=== PATIENT | male | born 1935 | race Caucasian/White ===

== ENCOUNTER 2016-08-23 21:19 | Observation (INO) | payer OTHER ==
[2016-08-23 21:41] LABS: ANION GAP 15 mEq/L (8-16); CALCIUM 10.3 mg/dL (8.5-10.4); CARBON DIOXIDE 24 mEq/l (22-31); CHLORIDE 109 mEq/L (97-110); CREATININE 0.9 mg/dL (0.7-1.3); GLOMERULAR FILTRATION RATE > 60; POTASSIUM 3.5 mEq/L (3.5-5.2); SODIUM 148 mEq/L (134-144)
[2016-08-23 21:46] LABS: GLUCOSE 28 mg/dL (70-100)
[2016-08-23] MEDS ORDERED: D50W 25 GM/50 ML SYR IVP ONE ×2 (21:47→21:50)
--- NOTE | 2016-08-23 21:53 | EDPHY ---
H & P Smoking Status: Never smoked Time Seen by Provider: 08/23/16 21:38 HPI/ROS: CHIEF COMPLAINT: Altered mental status HISTORY OF PRESENT ILLNESS: 80-year-old male presents to the emergency department by ambulance with altered mental status. The patient is a known type 1 insulin-dependent diabetic. He was at a [employer] party this evening and he admits to drinking alcohol. He states I am drunk. No reported trauma or injury. His states that he manages his blood sugars on his own. She states 1 week ago on 2 occasions he had hypoglycemia and she had to give him some oral sugar for his altered mental status. She states that this presentation tonight is very similar and she tried giving him a Brownie at the alliance party however he continued to act altered and presented to the emergency department by ambulance. The patient has had no precipitating illness. No vomiting. No chest pain or difficulty breathing. No headache. No abdominal pain. No neck or back pain. Denies any other substance abuse. REVIEW OF SYSTEMS: Constitutional: No fever, no chills. Eyes: No double or blurry vision. ENT: No sore throat. Respiratory: No cough, no shortness of breath. Cardiac: No chest pain. Gastrointestinal: No abdominal pain, vomiting or diarrhea. Genitourinary: No dysuria. Musculoskeletal: No neck or back pain. Skin: No rashes. Neurological: No headache. (Casie Breen) Past Medical/Surgical History: Type 1 diabetic on insulin, Hypertension, dyslipidemia (Casie Breen) Social History: . (Casie Breen) Physical Exam: General Appearance: Alert. No apparent distress. No signs of trauma to his head. He does not smell of alcohol. Initially the patient was very slow to answer questions. Eyes: Pupils equal and round. Extraocular motions are all intact. ENT: Mouth: Mucous membranes very dry. Respiratory: No wheezing, rhonchi, or rales, lungs are clear to auscultation. Cardiovascular: Regular rate and rhythm. Gastrointestinal: Abdomen is soft and nontender, no masses, no rebound or guarding, bowel sounds normal. Neurological: Alert and oriented x 3, cranial nerves II through XII grossly intact Skin: Warm and dry, no rashes. Musculoskeletal: Nontender to palpate along the cervical, thoracic or lumbar spine. Neck is supple. Extremities: Full range of motion and no peripheral edema. Psychiatric: Patient is oriented X 3, there is no agitation. (Casie Breen) Constitutional: Initial Vital Signs Temperature (C) 36.9 C 08/23/16 21:28 Heart Rate 80 08/23/16 21:28 Respiratory Rate 14 08/23/16 21:28 Blood Pressure 199/86 H 08/23/16 21:28 O2 Sat (%) 96 08/23/16 21:28 O2 Delivery Mode Room Air Allergies/Adverse Reactions: No Known Allergies Allergy (Unverified 08/23/16 21:28) Home Medications: Medication Instructions Recorded Aspirin EC [Aspirin EC 81 mg (*)] 81 mg PO DAILY 12/22/15 Atenolol [Tenormin 25 mg (*)] 25 mg PO DAILY 12/22/15 Herbals/Supplements -Info Only 1 ea PO DAILY 12/22/15 Insulin Lispro [humALOG LISPRO 100 7 - 15 units SC BIDAC 12/22/15 units/ml (*)] Insulin NPH Human [humULIN N 100 20 - 30 units SC BIDPC 12/22/15 UNITS/ML (*)] Lisinopril [Zestril 40 mg (*)] 40 mg PO DAILY 12/22/15 Simvastatin [Zocor] 20 mg PO DAILY 12/22/15 amLODIPine BESYLATE [Norvasc 5 mg 5 mg PO DAILY 12/22/15 (*)] metFORMIN HCL [Glucophage 500 mg 500 mg PO DAILY 12/22/15 (*)] Multivitamins [Multivitamin (*)] 1 each PO DAILY 12/23/15 amLODIPine BESYLATE [Norvasc 5 mg 5 mg PO DAILY #0 tab 12/24/15 (*)] Medical Decision Making - Diagnostics Imaging: CT brain reveals nothing acute. This was reported to me by Dr. Diego White at 10:42 p.m.. (Casie Breen) ED Course/Re-evaluation: The patient was evaluated and managed by the physician's operating room assistant. I evaluated him at 2154. The patient's condition improved substantially since initial evaluation. Physical exam results are as follows: GENERAL: Well-appearing, in no acute distress, alert but confused. HEENT: Eyes normal to inspection, normal pharynx, no signs of dehydration. NECK: No thyromegaly, no lymphadenopathy, supple. RESPIRATORY: Clear to auscultation bilaterally, no rales, rhonchi or wheezing. CVS: Regular rate and rhythm, no rubs, murmurs, or gallops. ABDOMEN: Soft, nontender, nondistended, no organomegaly. BACK: Normal to inspection, no CVA tenderness. SKIN: Normal color, no rash, warm, dry. No pallor. EXTREMITIES: No pedal edema, no calf tenderness, no Homans sign or cords, no joint swelling. NEURO/PSYCH: Alert, confused, oriented x3, normal motor sensory exam. No obvious cranial nerve deficit. Normal heel to maradiaga bilaterally. Normal finger to nose test. My cosignature indicates that I reviewed the chart and I agree with the findings and plan of care as documented. I am the secondary supervising physician. (Judy Ji) 80-year-old male presents to the emergency department with altered mental status. Patient has a history type 1 diabetes. He manages his blood sugar on his own. He states the last gave himself insulin earlier this morning. He was at a [employer] party this evening and drink alcohol. His noted that he started being confused and she thought that his blood sugar was low. She tried giving him a Brownie and since he did not come around, she called EMS for transport to the hospital. The patient was found to have critically low blood sugar of 28. He was given juice and a quarter amp of D50. He instantly became more conversational and was feeling much better. CT imaging of the brain was within normal limits. No change from December 22, 2015. Repeat blood sugar was 79. The rest is chemistries are within normal limits. Troponin was negative. Chest x-ray and urine revealed no signs of infection. The patient tells me that they recently changed the timing of when he gets himself Lantus. He states that his blood sugar typically was very low at night time. He has been sitting his alarm in the middle of the night and will get up to check his blood sugar. He was taking Lantus at night and now takes 50 units of Lantus in the morning and 20 units of regular insulin in the morning. He then takes only regular insulin 20 units at bedtime. The patient was also seen and examined by Dr. Judy Ji. I recommended admission to the hospital for observation stay. I explained to the patient that it is not clear why his blood sugar became low. He states that his last use of insulin was earlier this morning. I recommended observation stay overnight. The patient will be admitted to Dr. Soto. (Ciara Breenrina Christophe) Differential Diagnosis: Altered mental status including but not limited to hypoglycemia, infectious process, electrolyte abnormality, head injury and intoxicants. (NuhaCasie Christophe) - Data Points Laboratory Results: Laboratory Results 08/23/16 22:00 08/23/16 21:55 08/23/16 08/23/16 08/23/16 22:30 22:00 21:55 WBC 9.37 10^3/uL (3.80-9.50) RBC 5.21 10^6/uL (4.40-6.38) Hgb 16.2 g/dL (13.7-17.5) Hct 47.4 % (40.0-51.0) MCV 91.0 fL (81.5-99.8) MCH 31.1 pg (27.9-34.1) MCHC 34.2 g/dL (32.4-36.7) RDW 13.6 % (11.5-15.2) Plt Count 240 10^3/uL (150-400) MPV 10.1 fL (8.7-11.7) Neut % (Auto) 71.0 % (39.3-74.2) Lymph % (Auto) 19.1 % (15.0-45.0) [place] % (Auto) 7.5 % (4.5-13.0) Eos % (Auto) 1.5 % (0.6-7.6) Baso % (Auto) 0.6 % (0.3-1.7) Nucleat RBC Rel Count 0.0 % (0.0-0.2) Absolute Neuts (auto) 6.65 H 10^3/uL (1.70-6.50) Absolute Lymphs (auto) 1.79 10^3/uL (1.00-3.00) Absolute Monos (auto) 0.70 10^3/uL (0.30-0.80) Absolute Eos (auto) 0.14 10^3/uL (0.03-0.40) Absolute Basos (auto) 0.06 10^3/uL (0.02-0.10) Absolute Nucleated RBC 0.00 10^3/uL (0-0.01) Immature Gran % 0.3 % (0.0-1.1) Immature Gran # 0.03 10^3/uL (0.00-0.10) Turbidity Sodium 146 H mEq/L (134-144) Potassium 3.7 mEq/L (3.5-5.2) Chloride 109 mEq/L (97-110) Carbon Dioxide 22 mEq/l (22-31) Anion Gap 15 mEq/L (8-16) BUN 15 mg/dL (7-23) Creatinine 0.9 mg/dL (0.7-1.3) Estimated GFR > 60 Glucose 79 D mg/dL (70-100) Calcium 10.0 mg/dL (8.5-10.4) Troponin I Specimen Hemolysis Urine Color YELLOW Urine Appearance CLEAR Urine pH 6.0 (5.0-7.5) Ur Specific [place] 1.016 (1.002-1.030) Urine Protein 2+ H (NEGATIVE) Urine Ketones NEGATIVE (NEGATIVE) Urine Blood NEGATIVE (NEGATIVE) Urine Nitrate NEGATIVE (NEGATIVE) Urine Bilirubin NEGATIVE (NEGATIVE) Urine Urobilinogen NEGATIVE EU (0.2-1.0) Ur Leukocyte Esterase NEGATIVE (NEGATIVE) Urine RBC 1-3 /hpf (0-3) Urine WBC 1-3 /hpf (0-3) Ur Epithelial Cells NONE SEEN /lpf (NONE-1+) Urine Glucose NEGATIVE (NEGATIVE) 08/23/16 08/23/16 21:54 21:30 WBC RBC Hgb Hct MCV MCH MCHC RDW Plt Count MPV Neut % (Auto) Lymph % (Auto) [place] % (Auto) Eos % (Auto) Baso % (Auto) Nucleat RBC Rel Count Absolute Neuts (auto) Absolute Lymphs (auto) Absolute Monos (auto) Absolute Eos (auto) Absolute Basos (auto) Absolute Nucleated RBC Immature Gran % Immature Gran # Turbidity Cancelled Sodium Cancelled 148 H mEq/L (134-144) Potassium Cancelled 3.5 mEq/L (3.5-5.2) Chloride Cancelled 109 mEq/L (97-110) Carbon Dioxide Cancelled 24 mEq/l (22-31) Anion Gap Cancelled 15 mEq/L (8-16) BUN Cancelled 16 mg/dL (7-23) Creatinine Cancelled 0.9 mg/dL (0.7-1.3) Estimated GFR Cancelled > 60 Glucose Cancelled 28 L* mg/dL (70-100) Calcium Cancelled 10.3 mg/dL (8.5-10.4) Troponin I 0.024 ng/mL (0-0.034) Specimen Hemolysis Cancelled Urine Color Urine Appearance Urine pH Ur Specific [place] Urine Protein Urine Ketones Urine Blood Urine Nitrate Urine Bilirubin Urine Urobilinogen Ur Leukocyte Esterase Urine RBC Urine WBC Ur Epithelial Cells Urine Glucose Departure - Departure Disposition: [facility] Inpatient Acute Clinical Impression: Hypoglycemia Condition: Good Referrals: IN STATE,. [Primary Care Provider] - As per Instructions
[2016-08-23 22:08] LABS: % IMMATURE GRANULYOCYTES 0.3 % (0.0-1.1); ABSOLUTE IMMATURE GRANULOCYTES 0.03 10^3/uL (0.00-0.10); ADD DIFF? NO; ADD MORPH? NO; ADD SCAN? NO; ATYPICAL LYMPHOCYTE FLAG 0 (0-99); FRAGMENT RBC FLAG 0 (0-99); HEMATOCRIT 47.4 % (40.0-51.0); HEMOGLOBIN 16.2 g/dL (13.7-17.5); LEFT SHIFT FLG 0 (0-99); LIPEMIA HEMOLYSIS FLAG 90 (0-99); MEAN CELL HEMOGLOBIN 31.1 pg (27.9-34.1); MEAN CELL HEMOGLOBIN CONCENTR. 34.2 g/dL (32.4-36.7); MEAN PLATELET VOLUME 10.1 fL (8.7-11.7); PLATELET CLUMPS FLAG 10 (0-99); PLATELET COUNT 240 10^3/uL (150-400); RED BLOOD CELL COUNT 5.21 10^6/uL (4.40-6.38); RED CELL DISTRIBUTION WIDTH 13.6 % (11.5-15.2)
[2016-08-23 22:22] LABS: ANION GAP 15 mEq/L (8-16); CARBON DIOXIDE 22 mEq/l (22-31); CHLORIDE 109 mEq/L (97-110); CREATININE 0.9 mg/dL (0.7-1.3); GLOMERULAR FILTRATION RATE > 60; GLUCOSE 79 mg/dL (70-100); POTASSIUM 3.7 mEq/L (3.5-5.2); SODIUM 146 mEq/L (134-144)
--- NOTE | 2016-08-23 22:23 | DX ---
Portable AP Upright Chest, at 9:43 p.m. Clinical History: 80-year-old male who is inebriated. Comparison Study: Chest, dated December 22, 2015. Findings: Telemetry monitoring lead lines are present. The cardiac silhouette is borderline-enlarged, however is stable. The pulmonary vasculature is equalized. There is no focal infiltrate, pleural eff usion, peripheral interstitial edema, or pneumothorax. The osseous structures are notable for some barbara ne demineralization with some thoracic degenerative changes and a mild kyphosis. Impression: No acute abnormality, or substantial change from December 22, 2015.
--- NOTE | 2016-08-23 22:39 | CPEKG ---
Heart Rate: 71 RR Interval: 845 P-R Interval: 228 QRSD Interval: 102 QT Interval: 404 QTC Interval: 439 P Joanna: 53 QRS Joanna: -29 T Wave Joanna: 37 EKG Severity - ABNORMAL ECG - EKG Impression: SINUS ARRHYTHMIA, RATE 65-80 EKG Impression: VENTRICULAR PREMATURE COMPLEX EKG Impression: FIRST DEGREE AV BLOCK EKG Impression: BORDERLINE LEFT AXIS DEVIATION Electronically Signed By: Francis Love 24-Aug-2016 07:26:41
[2016-08-23 22:40] LABS: COLOR YELLOW; LEUKOCYTE ESTERASE,URINE NEGATIVE (NEGATIVE); NITRITE,URINE NEGATIVE (NEGATIVE)
--- NOTE | 2016-08-23 22:44 | CT ---
CT Scan of the Head (Without Contrast) Clinical Indications: 80-year-old male who is inebriated, although also has a history of type 1 insul in-dependent diabetes and has had altered mental status secondary to hypoglycemia twice over the past week. The patient denies any recent head trauma. Technique: Axial CT images were acquired from the foramen magnum through the skull vertex, without i ntravenous contrast. Soft tissue, subdural, and bone windows were reviewed on the computer workstati on. Images were reformatted at 5.00 and 1.50 mm increments, and are reformatted in sagittal and juvenal nal planes. DFOV is 27.5 cm. Dose reduction techniques were utilized. Comparison Studies: Unenhanced CT and MR imaging of the brain, dated December 22, 2015. Findings: There are no new mass lesions identified, and there is no evidence of an acute or subacute intracranial hemorrhage, or an acute infarct. The ventricles and subarachnoid spaces remain prominen t, with some cortical sulcal widening, consistent with age-related cerebral cortical atrophy. There i s periventricular diminished attenuation, consistent with chronic microvascular ischemic gliosis. Th e bone windows reveal no sign of a fracture. There is atherosclerotic calcification of the cavernous carotid arteries and of the vertebral arteries. The craniocervical junction, sella turcica, pineal g land, and the orbits are unremarkable. The visualized paranasal sinuses and mastoid air cells are eric e of fluid. If there is continuing clinical concern regarding the patient's symptoms, MR imaging coul d be considered, if otherwise not contraindicated. Impression: Senescent features, with no acute intracranial abnormality, or substantial change from A pril 2016. Results were conveyed to Casie Breen PA-C. A test result has been communicated to a licensed care provider and documented in [facility], 10:39:48 P M, 08/23/2016, [employer] Message ID [id number].
[2016-08-24] MEDS ORDERED: ONDANSETRON 4 MG/2 ML VIAL IVP PRN (00:14)
[2016-08-24] MEDS ORDERED: ACETAMINOPHEN 325 MG TAB PO PRN (00:14)
[2016-08-24] MEDS ORDERED: ONDANSETRON DISINTEGRATING 4 MG TAB PO PRN (00:14)
[2016-08-24] MEDS ORDERED: D50W 25 GM/50 ML SYR IVP PRN (00:17)
--- NOTE | 2016-08-24 00:51 | PDGENHP ---
History and Physical - Chief Complaint altered mental status - History of Present Illness Patient is a 80-year-old male with type 1 diabetes mellitus, hypertension and hyperlipidemia who presents to the ED with altered mental status. Patient was at a [employer] green party with his when she noticed he began acting strangely, in a manner similar to when he becomes hypoglycemic. She gave him a brownie to eat, however, his MS did not immediately improve, so she called EMS. Upon EMS arrival , pt's glucose was noted to be >150 (per ED report) and he was transported to the ED for further management. Per patient, he has been having episodes of hypoglycemia recently, over the past 1-2 weeks. To address this, pt's PMD told him to switch his lantus dosing from qHS to qAM, which he did about 3 days ago. His current prescribed insulin regimen is: Lantus 50 u qAM and Regular Insulin 20 units BID (AC breakfast/ dinner). On the day of presentation, pt reports taking his AM Lantus dose and regular insulin. At about 5 pm he then took Regular Insulin 25 units and he thinks he might have again injected another dose of lantus 50 units out of habit. He then went to the [employer] green party where he was drinking alcohol (champagne) and eating a lot of high protein, low carb foods (shrimp, etc). 2-3 hours into this green party he began feeling unwell and does not quite remember what exactly happened with EMS. He states he usually "blacks out" when his blood glucose is < 30 and no longer feels any warning symptoms of hypoglycemia (sweating, tremor) . Upon arrival to the ED, pt was afebrile, hypertensive and his FS was noted to be 29 on PoC testing. He was given an amp of D50, as well as 2 cups of juice and peanut butter. Repeat glu was 79 and patient had returned back to his baseline mental status. CT head, CXR and EKG were all unremarkable. He was then admitted to the hospitalist service for further management. Of note, on my evaluation pt had asymmetric R LE swelling, which he reported as new and he noticed it when he had difficulty getting his ski boot on his R foot. He does report a recent car trip > 5 hrs about 1 week ago. He denies any cp, palpitations, shortness of breath or pleuritis. History Information - Allergies/Home Medication List Allergies/Adverse Reactions: No Known Allergies Allergy (Unverified 08/23/16 21:28) Home Medications: Aspirin EC [Aspirin EC 81 mg (*)] 81 mg PO DAILY 12/22/15 [Last Taken Unknown] Atenolol [Tenormin 25 mg (*)] 25 mg PO DAILY 12/22/15 [Last Taken 12/21/15] Herbals/Supplements -Info Only 1 ea PO DAILY 12/22/15 [Last Taken Unknown] Insulin Lispro [humALOG LISPRO 100 units/ml (*)] 7 - 15 units SC BIDAC 12/22/15 [Last Taken Unknown] Insulin NPH Human [humULIN N 100 UNITS/ML (*)] 20 - 30 units SC BIDPC 12/22/15 [ Last Taken Unknown] Lisinopril [Zestril 40 mg (*)] 40 mg PO DAILY 12/22/15 [Last Taken 12/21/15] Simvastatin [Zocor] 20 mg PO DAILY 12/22/15 [Last Taken 12/21/15] amLODIPine BESYLATE [Norvasc 5 mg (*)] 5 mg PO DAILY 12/22/15 [Last Taken ] metFORMIN HCL [Glucophage 500 mg (*)] 500 mg PO DAILY 12/22/15 [Last Taken 12/20] Multivitamins [Multivitamin (*)] 1 each PO DAILY 12/23/15 [Last Taken 12/23/15] I have personally reviewed and updated: family history, medical history, social history, surgical history - Past Medical History Additional medical history: DM type 1, on insulin since young adulthood. Hypertension. Hyperlipidemia - Surgical History Additional surgical history: tonsillectomy. 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 Lives with his , is independent in all ADLs. Review of Systems ROS: 10pt was reviewed & negative except for what was stated in HPI & below Physical Exam Temp Pulse Resp BP Pulse Ox 36.9 C 78 16 129/55 H 95 08/23/16 21:28 08/24/16 00:00 08/24/16 00:00 08/24/16 00:00 08/24/16 00:00 Constitutional: no apparent distress, appears nourished, not in pain Eyes: PERRL, anicteric sclera, EOMI Ears, Nose, Mouth, Throat: moist mucous membranes, hearing normal, ears appear normal, no oral mucosal ulcers Cardiovascular: regular rate and rhythym, no murmur, rub, or gallop, pulses symmetric bilaterally, edema (RLE pitting edema, 1-2+), No JVD Peripheral Pulses: 2+: dorsalis-pedis (R), dorsalis-pedis (L) Respiratory: no respiratory distress, no rales or rhonchi, clear to auscultation Gastrointestinal: normoactive bowel sounds, soft, non-tender abdomen, no palpable masses Genitourinary: no bladder fullness, no bladder tenderness Skin: warm, normal color, no rashes or abrasions, no fluctuance, No mottled Musculoskeletal: full muscle strength, no muscle tenderness, normal joint ROM, no joint effusions Neurologic: AAOx3, sensation intact bilaterally, CN II-XII Intact, No weakness, No numbness Psychiatric: interacting appropriately, not anxious, not encephalopathic, thought process linear Lab Data & Imaging Review 08/23/16 22:00 08/23/16 21:55 WBC 9.37 10^3/uL (3.80-9.50) 08/23/16 22:00 RBC 5.21 10^6/uL (4.40-6.38) 08/23/16 22:00 Hgb 16.2 g/dL (13.7-17.5) 08/23/16 22:00 POC Hgb 15.0 gm/dL (14.5-17.3) 08/23/16 23:43 Hct 47.4 % (40.0-51.0) 08/23/16 22:00 POC Hct 44 % (42.8-50.6) 08/23/16 23:43 MCV 91.0 fL (81.5-99.8) 08/23/16 22:00 MCH 31.1 pg (27.9-34.1) 08/23/16 22:00 MCHC 34.2 g/dL (32.4-36.7) 08/23/16 22:00 RDW 13.6 % (11.5-15.2) 08/23/16 22:00 Plt Count 240 10^3/uL (150-400) 08/23/16 22:00 MPV 10.1 fL (8.7-11.7) 08/23/16 22:00 Neut % (Auto) 71.0 % (39.3-74.2) 08/23/16 22:00 Lymph % (Auto) 19.1 % (15.0-45.0) 08/23/16 22:00 [place] % (Auto) 7.5 % (4.5-13.0) 08/23/16 22:00 Eos % (Auto) 1.5 % (0.6-7.6) 08/23/16 22:00 Baso % (Auto) 0.6 % (0.3-1.7) 08/23/16 22:00 Nucleat RBC Rel Count 0.0 % (0.0-0.2) 08/23/16 22:00 Absolute Neuts (auto) 6.65 10^3/uL (1.70-6.50) H 08/23/16 22:00 Absolute Lymphs (auto) 1.79 10^3/uL (1.00-3.00) 08/23/16 22:00 Absolute Monos (auto) 0.70 10^3/uL (0.30-0.80) 08/23/16 22:00 Absolute Eos (auto) 0.14 10^3/uL (0.03-0.40) 08/23/16 22:00 Absolute Basos (auto) 0.06 10^3/uL (0.02-0.10) 08/23/16 22:00 Absolute Nucleated RBC 0.00 10^3/uL (0-0.01) 08/23/16 22:00 Immature Gran % 0.3 % (0.0-1.1) 08/23/16 22:00 Immature Gran # 0.03 10^3/uL (0.00-0.10) 08/23/16 22:00 Turbidity Cancelled 08/23/16 21:54 POC Sodium 146 mEq/L (134-144) H 08/23/16 23:43 Sodium 146 mEq/L (134-144) H 08/23/16 21:55 POC Potassium 3.9 mEq/L (3.3-5.0) 08/23/16 23:43 Potassium 3.7 mEq/L (3.5-5.2) 08/23/16 21:55 POC Chloride 107 mEq/L (96-108) 08/23/16 23:43 Chloride 109 mEq/L (97-110) 08/23/16 21:55 Carbon Dioxide 22 mEq/l (22-31) 08/23/16 21:55 Anion Gap 15 mEq/L (8-16) 08/23/16 21:55 POC BUN 15 mg/dL (7-23) 08/23/16 23:43 BUN 15 mg/dL (7-23) 08/23/16 21:55 Creatinine 0.9 mg/dL (0.7-1.3) 08/23/16 21:55 POC Creatinine 0.8 mg/dL (0.8-1.5) 08/23/16 23:43 Estimated GFR > 60 08/23/16 21:55 Glucose 79 mg/dL (70-100) D 08/23/16 21:55 POC Glucose 82 mg/dL (70-100) 08/23/16 23:43 Calcium 10.0 mg/dL (8.5-10.4) 08/23/16 21:55 Troponin I 0.024 ng/mL (0-0.034) 08/23/16 21:54 Specimen Hemolysis Cancelled 08/23/16 21:54 Urine Color YELLOW 08/23/16 22:30 Urine Appearance CLEAR 08/23/16 22:30 Urine pH 6.0 (5.0-7.5) 08/23/16 22:30 Ur Specific [place] 1.016 (1.002-1.030) 08/23/16 22:30 Urine Protein 2+ (NEGATIVE) H 08/23/16 22:30 Urine Ketones NEGATIVE (NEGATIVE) 08/23/16 22:30 Urine Blood NEGATIVE (NEGATIVE) 08/23/16 22:30 Urine Nitrate NEGATIVE (NEGATIVE) 08/23/16 22:30 Urine Bilirubin NEGATIVE (NEGATIVE) 08/23/16 22:30 Urine Urobilinogen NEGATIVE EU (0.2-1.0) 08/23/16 22:30 Ur Leukocyte Esterase NEGATIVE (NEGATIVE) 08/23/16 22:30 Urine RBC 1-3 /hpf (0-3) 08/23/16 22:30 Urine WBC 1-3 /hpf (0-3) 08/23/16 22:30 Ur Epithelial Cells NONE SEEN /lpf (NONE-1+) 08/23/16 22:30 Urine Glucose NEGATIVE (NEGATIVE) 08/23/16 22:30 Visualized and Interpreted Chest x-ray results: Yes Chest X-Ray results: no infiltrate, normal Visualized and Interpreted imaging results: Yes Interpretation: CT head: no acute intracranial infarct, hemorrhage, edema Visualized and Interpreted EKG results: Yes EKG additional interpertation: NSR with 1st degree AVblock; no ST/T wave changes ; PVC Assessment & Plan Assessment: Pt is 80/M with DM1 on insulin, HTN, HLD who presented to the ED with altered mental status, found to be severely hypoglycemic. On history, patient reports taking more than his prescribed dose of regular insulin and also possibly a second dose of Lantus in 24hrs. Plan: # acute encephalopathy Likely related to hypoglycemia, as MS returned to baseline with normalization of BG. Pt also without any focal deficits, CT head unremarkable and no other significant metabolic abnormalities present. # hypoglycemia Pt reports taking regular insulin 25 u and possibly accidentally also injecting Lantus 50 units at about 5 pm on 08/23. Half life of R insulin is about 2-4hrs, and hypoglycemia has persisted longer than that, so long acting insulin was also likely injected. Given this, pt will require close FS monitoring over 12- 18 hour period. Most recent FS 147, so no indication for starting D5/D10 at this time. - monitor FS q1-2h for next 6 hrs - if levels again fall below 100, start D5 - hold all insulin overnight # RLE swelling Pt with new LE swelling, R>L and reports recent long car trip to [place]. Will check LE doppler to r/o DVT. # chronic HTN BP elevated on presentation, has improved without intervention. Will confirm and restart home meds. # HLD Cont home med. # dispo: observe in SDU overnight given need for frequent glucose checks, however, anticipate hypoglycemia will resolve within 24 hrs # Gen: diabetic diet DVT ppx: lovenox Full code
[2016-08-24 01:29] VITALS: TEMP 98.6
[2016-08-24 04:37] LABS: % IMMATURE GRANULYOCYTES 0.4 % (0.0-1.1); ABSOLUTE IMMATURE GRANULOCYTES 0.03 10^3/uL (0.00-0.10); ADD DIFF? NO; ADD MORPH? NO; ADD SCAN? NO; ATYPICAL LYMPHOCYTE FLAG 0 (0-99); FRAGMENT RBC FLAG 0 (0-99); HEMATOCRIT 38.9 % (40.0-51.0); HEMOGLOBIN 13.4 g/dL (13.7-17.5); LEFT SHIFT FLG 0 (0-99); LIPEMIA HEMOLYSIS FLAG 90 (0-99); MEAN CELL HEMOGLOBIN 31.7 pg (27.9-34.1); MEAN CELL HEMOGLOBIN CONCENTR. 34.4 g/dL (32.4-36.7); MEAN PLATELET VOLUME 10.3 fL (8.7-11.7); PLATELET CLUMPS FLAG 10 (0-99); PLATELET COUNT 195 10^3/uL (150-400); RED BLOOD CELL COUNT 4.23 10^6/uL (4.40-6.38); RED CELL DISTRIBUTION WIDTH 13.9 % (11.5-15.2)
[2016-08-24 04:45] LABS: ALANINE AMINOTRANSFERASE 36 IU/L (21-72); ALBUMIN 2.8 g/dL (3.5-5.0); ALKALINE PHOSPHATASE 94 IU/L (38-126); ANION GAP 7 mEq/L (8-16); ASPARTATE AMINOTRANSFERASE 27 IU/L (17-59); BILIRUBIN,TOTAL 0.4 mg/dL (0.1-1.4); CALCIUM 8.9 mg/dL (8.5-10.4); CARBON DIOXIDE 25 mEq/l (22-31); CHLORIDE 107 mEq/L (97-110); CREATININE 0.8 mg/dL (0.7-1.3); GLOMERULAR FILTRATION RATE > 60; GLUCOSE 244 mg/dL (70-100); POTASSIUM 4.7 mEq/L (3.5-5.2); SODIUM 139 mEq/L (134-144)
[2016-08-24 04:57] LABS: TROPONIN I 0.024 ng/mL (0-0.034)
--- NOTE | 2016-08-24 08:16 | SOAPPROG ---
[id number]: DC today. See DC summary Objective: Vital Signs Temp Pulse Resp BP Pulse Ox 37.0 C 65 18 140/60 H 98 08/24/16 01:29 08/24/16 06:00 08/24/16 06:00 08/24/16 06:00 08/24/16 06:00 Laboratory Results 08/24/16 04:32 08/24/16 04:32 08/23/16 08/24/16 08/25/16 05:59 05:59 05:59 Intake Total 400 Balance 400 ICD10 Worksheet Patient Problems: Problems Problem Status Diagnosed CVA (cerebral vascular accident) Acute Expressive aphasia Acute Hypoglycemia Acute
--- NOTE | 2016-08-24 08:22 | US ---
Venous Duplex Doppler Study of the Right Lower Extremity Clinical Indications: 80-year-old male with right leg edema after a long car trip. Rule out DVT. Technique: A high-frequency transducer was used for imaging and Doppler study of the deep veins of th e right leg from the upper calf to the groin. Pulsed Doppler and color Doppler were utilized, along with various maneuvers, to assess flow in the deep veins. Cursory evaluation of the left common femor al vein was also obtained for comparison purposes, and is normal. Comparison Study: None. Findings: The deep veins of the right groin, thigh, knee, and upper calf are well displayed, and are normally compressible. Doppler flow patterns are unremarkable. There is no evidence of deep venous thrombosis. There is normal compression of the greater saphenous vein, without superficial thrombosi s. The popliteal fossa is unremarkable. There is some mild subcutaneous edema in the calf. Impression: There is no sonographic evidence of deep or superficial vein thrombosis in the right leg .
[2016-08-24] MEDS ORDERED: ENOXAPARIN 40 MG/0.4 ML SYR SC SCH (09:00)
[2016-08-24 10:38] VITALS: BP 157/62; PULSE 72; RESP 13; O2SAT 92
--- NOTE | 2016-08-24 14:46 | GDS ---
[f rep st] DISCHARGE SUMMARY DISCHARGE DIAGNOSES: 1. Symptomatic hypoglycemia. 2. Metabolic encephalopathy. 3. Right lower extremity swelling. 4. Chronic accelerated hypertension. 5. Hyperlipidemia. 6. Type 1 diabetes. HISTORY OF PRESENT ILLNESS: Patient is a 80-year-old male with type 1 diabetes , hypertension, hyperlipidemia, who presented in the emergency room with altered mental status. He was at a New Year's constitution party with his . She noticed he was acting strangely, which was similar to other times when he has become hypoglycemic. She gave him a brownie to eat, but his mental status did not improve, so called EMS. Initial glucose was 150 per EMS, but 29 upon arrival to the emergency room. Per patient, he has been having episodes of hypoglycemia over the last 1-2 weeks. to address this, his primary doctor told him to switch his Lantus dosing from at bedtime to q.a.m., which he did approximately 3 days ago. He is currently prescribed Lantus 50 units q.a.m. and regular insulin 20 units twice daily with breakfast and dinner. The day of presentation, he reports taking his Lantus dose and regular insulin. At 5, he took his regular insulin at 25 units and may have again injected another dose of Lantus out of habit, but he is unclear. When he went to the constitution party, he was drinking alcohol and minimal carbohydrates. Upon my interview, he states that he has been having lows often, early in the morning, less than 70. He does endorse not eating a low carb diet. HOSPITAL COURSE BY PROBLEM: 1. Acute toxic encephalopathy secondary to hypoglycemia. resolved. Suspect patient the patient's home dose is too high. He reports having lows in the morning, which is likely secondary to his evening dose of regular insulin. 2. Hypoglycemia. Advised patient to continue his Lantus dose, however, I provided him a sliding scale for his regular insulin to be given at meals and not scheduled at 25 units. I explained this to both the patient's and his son. He is to call his diabetic nurse tomorrow morning to make them aware of changes. 3. Right lower extremity swelling. No evidence of DVT on ultrasound. 4. Accelerated hypertension. Continue home medication. 5. Hyperlipidemia, home medications. DISPOSITION: Patient is stable for discharge. MEDICATIONS: Continue Lantus. I did advise him if his sugars are low tomorrow morning that he should decrease this dose and call his diabetic nurse immediately. Stopped regular insulin 25 units twice daily and provided a sliding scale with meals. FOLLOWUP: 1. PCP. 2. Diabetic nurse educator. /[id number]/MODL MTDD
== END 2016-08-24 11:54 | disposition home or self-care (01) ==
LOC: EDUNIT# → F2N 08-24 00:55
PROVIDERS: ADMIT Internal Medicine; ATTEND Internal Medicine
DX: E10.649 Type 1 diabetes mellitus with hypoglycemia without coma (principal); R41.82 Altered mental status, unspecified; I10 Essential (primary) hypertension; E78.5 Hyperlipidemia, unspecified; M79.89 Other specified soft tissue disorders
CPT/HCPCS: 70450; 71020; 93005; 93971; G0378; 82947-QW; 96374; J1650

== ENCOUNTER 2018-02-24 13:08 | Inpatient (IN) | payer OTHER ==
--- NOTE | 2018-02-24 13:09 | EDPHY ---
H & P Time Seen by Provider: 02/24/18 13:08 - Medical/Surgical History Hx Asthma: No Hx Chronic Respiratory Disease: No Hx Diabetes: Yes Hx Cardiac Disease: No Hx Renal Disease: No Hx Cirrhosis: No Hx Alcoholism: No Hx HIV/AIDS: No Hx Splenectomy or Spleen Trauma: No Other PMH: DM, cataract surgeries, appendectomy, tonsilectomy ([id number]), HTN, hyperlipidemia - Social History Smoking Status: Never smoked Constitutional: Initial Vital Signs Temperature (C) 37.0 C 02/24/18 13:15 Heart Rate 63 02/24/18 13:15 Respiratory Rate 18 02/24/18 13:15 Blood Pressure 180/109 H 02/24/18 13:15 O2 Sat (%) 97 02/24/18 13:15 O2 Delivery Mode Room Air Allergies/Adverse Reactions: No Known Allergies Allergy (Unverified 08/23/16 21:28) Home Medications: Medication Instructions Recorded Aspirin EC [Aspirin EC 81 mg (*)] 81 mg PO DAILY 12/22/15 Atenolol [Tenormin 25 mg (*)] 25 mg PO DAILY 12/22/15 Herbals/Supplements -Info Only 1 ea PO DAILY 12/22/15 Lisinopril [Zestril 40 mg (*)] 40 mg PO DAILY 12/22/15 Simvastatin [Zocor] 20 mg PO DAILY 12/22/15 Multivitamins [Multivitamin (*)] 1 each PO DAILY 12/23/15 Insulin Glargine [Lantus 100 27 units SC DAILY 08/24/16 UNITS/ML (*)] Insulin Regular Human [Humulin R 5 unit SC 1130,1730 02/24/18 100 units/ml (*)] Insulin Regular Human [Humulin R 6 unit SQ DAILY 02/24/18 100 units/ml (*)] amLODIPine BESYLATE [Norvasc 2.5 2.5 mg PO DAILY 02/24/18 mg (*)] metFORMIN HCL [Metformin HCl] 500 mg PO DAILY 02/24/18 Medical Decision Making - Diagnostics Imaging Results: Imaging Impressions Hip X-Ray 02/24/18 13:18 Impression: 1. Comminuted intertrochanteric left hip fracture. 2. Extensive atherosclerosis. Imaging: Discussed imaging studies w/ call center support consultant Radiologist, I viewed and interpreted images myself ED Course/Re-evaluation: CHIEF COMPLAINT: Left hip pain HISTORY OF PRESENT ILLNESS: The patient is an 82 y/o male with a history of diabetes mellitus and hypertension arriving via EMS complaining of left hip pain secondary to falling today. He was standing on a stool putting up an [place] flag when he fell. He landed on his left hip on the concrete. Denies dizziness, hitting his head, or loss of consciousness. While en route to the emergency department he was given 100mcg IV Fentanyl. Currently he is having severe left hip pain and lying on his right side. Denies chest pain, shortness of breath, abdominal pain, urinary or bowel complaints, numbness, fever. Last PO at 08:00 today. REVIEW OF SYSTEMS: A 10 point review of systems was performed and is negative with the exception of the elements mentioned in the history of present illness. PHYSICAL EXAM: HR, BP, O2 Sat, RR. Temp noted General Appearance: Alert, well hydrated, appropriate, and non-toxic appearing. Head: Atraumatic without scalp tenderness or obvious injury Eyes: Pupils equal, round, reactive to light and accommodation, EOMI, no trauma , no injection. Ears: Clear bilaterally, no perforation, normal landmarks Nose: Atraumatic, no rhinorrhea, clear. Throat: There is no erythema or exudates, no lesions, normal tonsils, mucus membranes moist. Neck: Supple, nontender, no lymphadenopathy. Respiratory: No retractions, no distress, no wheezes, and no accessory muscle use. Lungs are clear to auscultation bilaterally. Cardiovascular: Regular rate and rhythm, no murmurs, rubs, or gallops. Bilateral carotid, radial, dorsalis pedis, and posterior tibial pulses intact. Good capillary refill all extremities. Gastrointestinal: Abdomen is soft, nontender, non-distended, no masses, no rebound, no guarding, no peritoneal signs. Musculoskeletal: Obvious deformity of the left hip with decreased ROM secondary to pain. Neurological: Alert, appropriate, and interactive. The patient has normal DTRs and non-focal cranial nerves, motor, sensory, and cerebellar exam. Skin: No rashes, good turgor, no nodules on palpation. 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 See hard copy and/or "tracemaster" electronic copy for interpretation. DIFFERENTIAL DIAGNOSIS: The differential diagnosis for the patient's hip injury included but was not limited to fracture, ligamentous injury, contusion, muscular strain. MEDICAL DECISION MAKING: The patient is an 82 y/o male with a history of diabetes mellitus and hypertension arriving via EMS presenting with left hip pain secondary to falling today. On exam he has an obvious deformity of the left hip with decreased ROM secondary to pain. He is currently lying on his right side as this is more comfortable. Left hip x-ray ordered; 0.5mg IV Dilaudid and 4mg IV Zofran administered. 1308: I met EMS upon arrival. 1343: I reviewed patient's x-ray which reveals a left comminuted intertrochanteric fracture. 1346: I consulted with Dr. Alba, orthopedic surgeon, regarding this patient. He agrees to consult and perform surgery on this patient. 1353: Consulted with hospitalist service, Dr. Berger accepts admission of this patient. EKG and pre-op labs ordered. 1358: Reassessed patient and discussed imaging findings. This patient is in too much pain and cannot be transferred to [facility]. He is comfortable with plan for admission to this hospital. 1404: I interpreted EKG as sinus rhythm with a rate of 59, first degree AV block - Data Points Medications Given: Discontinued Medications Hydromorphone HCl (Dilaudid) 0.5 mg IVP EDNOW ONE Stop: 02/24/18 13:19 Last Admin: 02/24/18 13:38 Dose: 0.5 mg Ondansetron HCl (Zofran) 4 mg IVP EDNOW ONE Stop: 02/24/18 13:19 Last Admin: 02/24/18 13:34 Dose: 4 mg Departure - Departure Disposition: [facility] Inpatient Acute Clinical Impression: Closed comminuted intertrochanteric fracture of femur Qualifiers: Encounter type: initial encounter Laterality: left Qualified Code(s): S72.142A - Displaced intertrochanteric fracture of left femur, initial encounter for closed fracture Condition: Fair Report Scribed for: Salvador Rowley Report Scribed by: Clau Ramirez Date of Report: 02/24/18 Time of Report: 13:59
[2018-02-24] MEDS ORDERED: ONDANSETRON 4 MG/2 ML VIAL IVP ONE (13:18)
[2018-02-24] MEDS ORDERED: HYDROmorphONE/DILAUDID 2 MG/ML INJ IVP ONE (13:18)
--- NOTE | 2018-02-24 14:06 | CPEKG ---
Heart Rate: 59 RR Interval: 1017 P-R Interval: 296 QRSD Interval: 96 QT Interval: 444 QTC Interval: 440 P Valentines: 0 QRS Valentines: -66 T Wave Valentines: 22 EKG Severity - ABNORMAL ECG - EKG Impression: SINUS RHYTHM EKG Impression: FIRST DEGREE AV BLOCK EKG Impression: LEFT ANTERIOR FASCICULAR BLOCK EKG Impression: ANTERIOR INFARCT, OLD Electronically Signed By: Mika Mejía 04-Mar-2018 21:21:07
[2018-02-24 14:31] LABS: PLATELET COUNT 192 10^3/uL (150-400)
[2018-02-24 14:32] LABS: INR 1.03 (0.83-1.16); PROTIME(PATIENT) 13.7 SEC (12.0-15.0)
--- NOTE | 2018-02-24 14:35 | PDANEPAE ---
ANE History of Present Illness left hip IT fx for ORIF ANE Past Medical History - Cardiovascular History Hx Hypertension: Yes Hx Arrhythmias: No Hx Chest Pain: No Hx Coronary Artery / Peripheral Vascular Disease: No Hx CHF / Valvular Disease: No Hx Palpitations: No - Pulmonary History Hx COPD: No Hx Asthma/Reactive Airway Disease: No Hx Recent Upper Respiratory Infection: No Hx Oxygen in Use at Home: No Hx Sleep Apnea: No - Endocrine History Hx Diabetes: Yes Hypothyroid: No Hyperthyroid: No Obesity: no ANE Review of Systems Review of systems is: negative Review of Systems: - Exercise capacity Exercise capacity: >=4 METS ANE Patient History - Allergies Allergies/Adverse Reactions: No Known Allergies Allergy (Unverified 08/23/16 21:28) - Home Medications Home medications: home medication list seen and reviewed Home Medications: Aspirin EC [Aspirin EC 81 mg (*)] 81 mg PO DAILY 12/22/15 [Last Taken 02/23/18] Atenolol [Tenormin 25 mg (*)] 25 mg PO DAILY 12/22/15 [Last Taken 02/23/18] Herbals/Supplements -Info Only 1 ea PO DAILY 12/22/15 [Last Taken 08/23/16] Lisinopril [Zestril 40 mg (*)] 40 mg PO DAILY 12/22/15 [Last Taken 02/23/18] Simvastatin [Zocor] 20 mg PO DAILY 12/22/15 [Last Taken 02/23/18] Multivitamins [Multivitamin (*)] 1 each PO DAILY 12/23/15 [Last Taken 02/23/18] Insulin Glargine [Lantus 100 UNITS/ML (*)] 27 units SC DAILY 08/24/16 [Last Taken 02/23/18] Insulin Regular Human [Humulin R 100 units/ml (*)] 5 unit SC 1130,1730 02/24/18 [Last Taken 02/23/18] Insulin Regular Human [Humulin R 100 units/ml (*)] 6 unit SQ DAILY 02/24/18 [ Last Taken 02/23/18] amLODIPine BESYLATE [Norvasc 2.5 mg (*)] 2.5 mg PO DAILY 02/24/18 [Last Taken ] metFORMIN HCL [Metformin HCl] 500 mg PO DAILY 02/24/18 [Last Taken 02/23/18] - NPO status NPO Since - Liquids (Date): 02/24/18 NPO Since - Liquids (Time): 08:00 NPO Since - Solids (Date): 02/24/18 NPO Since - Solids (Time): 08:00 - Anes Hx Anes Hx: no prior problems - Smoking Hx Smoking Status: Never smoked ANE Labs/Vital Signs - Labs Result Diagrams: 02/24/18 14:15 02/24/18 14:15 - Vital Signs Blood Pressure: 170/84 Heart Rate: 53 Respiratory Rate: 18 O2 Sat (%): 98 Height: 172.72 cm Weight: 80.739 kg ANE Physical Exam - Airway Neck exam: FROM Mallampati Score: Class 1 Mouth exam: normal dental/mouth exam - Pulmonary Pulmonary: no respiratory distress - Cardiovascular Cardiovascular: regular rate and rhythym - ASA Status ASA Status: III, E ANE Anesthesia Plan Anesthesia Plan: GA w LMA
[2018-02-24] MEDS ORDERED: fentaNYL 100 MCG/2 ML INJ ONE ×3 (14:47→18:07)
[2018-02-24] MEDS ORDERED: PROPOFOL 200 MG/20 ML VIAL ONE (14:48)
[2018-02-24] MEDS ORDERED: LIDOCAINE 2% 5 ML SDV ONE (14:50)
[2018-02-24] MEDS ORDERED: HYDROmorphONE/DILAUDID 1 MG/ML INJ IVP PRN (15:08)
[2018-02-24] MEDS ORDERED: ONDANSETRON 4 MG/2 ML VIAL IVP PRN ×2 (15:08→16:55)
[2018-02-24] MEDS ORDERED: ACETAMINOPHEN 325 MG TAB PO PRN (15:08)
[2018-02-24] MEDS ORDERED: LORazepam 2 MG/ML INJ IVP PRN (15:08)
[2018-02-24] MEDS ORDERED: ONDANSETRON DISINTEGRATING 4 MG TAB PO PRN (15:08)
[2018-02-24] MEDS ORDERED: D50W 25 GM/50 ML SYR IVP PRN (15:11)
[2018-02-24] MEDS ORDERED: NS 1,000 ML IV SCH (15:15)
[2018-02-24] MEDS ORDERED: BUPIVACAINE 0.25% 30 ML SDV ONE (15:28)
[2018-02-24] MEDS ORDERED: LIDOCAINE 1% 300 MG/30 ML SDV ONE (15:28)
[2018-02-24] MEDS ORDERED: CEFAZOLIN 2 GM/DEXTROSE/100 ML BAG IV ONE (15:43)
[2018-02-24] MEDS ORDERED: ceFAZolin 2 GM in NS 100 ML IV ONE (15:43)
[2018-02-24] MEDS ORDERED: ONDANSETRON 4 MG/2 ML VIAL ONE (15:45)
--- NOTE | 2018-02-24 15:49 | SOAPPROG ---
AGUEDA Progress Note Assessment/Plan: Assessment: HPI: 82 year old male s/p a left hip IT femur fracture after fall earlier today (02/24/18). PE: Gen: NAD AVSS LLE: TTP overlying the left hip +Q, H, TA, EHL, FHL, G/S +SILT in DP, SP, Sural, T, Saphenous distributions 2+DP and PT pulses AP pelvis and left hip radiographs: Left hip IT femur fracture, complete, displaced Assessment and Plan: 82 year old male s/p a left hip IT femur fracture after fall earlier today (). -I have discussed with the patient the RBAC associated with both non-operative and operative forms of treatment -He fully understands the RBAC associated with both forms of treatment and wishes to proceed with operative intervention in the form of left hip ORIF -He has signed the informed consent form for surgery -He has been medically cleared for surgery by Dr. Shelley Berger -Plan for OR as soon as available Plan: 02/24/18 15:46 02/28/18 14:11 02/28/18 14:11 Objective: Vital Signs Temp Pulse Resp BP Pulse Ox 37.0 C 53 L 18 170/84 H 98 02/24/18 15:21 02/24/18 15:21 02/24/18 15:21 02/24/18 15:21 02/24/18 15:21 Laboratory Results 02/24/18 14:15 02/24/18 14:15 PT 13.7 SEC (12.0-15.0) 02/24/18 14:15 INR 1.03 (0.83-1.16) 02/24/18 14:15 ICD10 Worksheet Patient Problems: Problems Problem Status Onset Closed comminuted intertrochanteric fracture of femur Acute
[2018-02-24] MEDS ORDERED: ceFAZolin 2 GM/DEXTROSE 100 ML IV ONE (16:30)
--- NOTE | 2018-02-24 16:54 | POSTANESTH ---
Post Anesthetic Evaluation Cardiovascular Status: Normal, Stable Respiratory Status: Normal, Stable Level of Consciousness/Mental Status: Can Participate in Eval, Moderately Sleepy Pain Control: Adequate, Prn Tx Ordered Nausea/Vomiting Control: Adequate, Prn Tx Ordered Complications Possibly Related to Anesthesia: None Noted
[2018-02-24] MEDS ORDERED: PHENYLEPHRINE HCL 100 MCG/ML SYR IVP PRN (16:55)
[2018-02-24] MEDS ORDERED: NALOXONE HCL 0.4 MG/ML INJ IVP PRN (16:55)
[2018-02-24] MEDS ORDERED: oxyCODONE IR 5 MG TAB PO PRN (16:55)
[2018-02-24] MEDS ORDERED: PROMETHAZINE HCL 25 MG/ML INJ IVP PRN (16:55)
[2018-02-24] MEDS ORDERED: LABETALOL HCL 5 MG/ML 20 ML MDV IVP PRN (16:55)
[2018-02-24] MEDS ORDERED: LR 500 ML IV PRN (16:55)
[2018-02-24] MEDS ORDERED: ACETAMINOPHEN 500 MG TAB PO PRN (16:55)
[2018-02-24] MEDS ORDERED: HYDROCODONE/APAP 5/325 TAB PO PRN (16:55)
[2018-02-24] MEDS ORDERED: ALBUTEROL 3 ML DEYVIAL IH PRN (16:55)
[2018-02-24] MEDS ORDERED: fentaNYL 100 MCG/2 ML INJ IVP PRN (16:55)
--- NOTE | 2018-02-24 17:53 | POSTOPPROG ---
Post Op Note Date of Operation: 02/24/18 Surgeon: Jeffrey Alba Fire Sprinkler Apparatus Inspector: none Anesthesiologist: Seth Anesthesia: GET(General Endotracheal) Pre-op Diagnosis: Left IT femur fracture Post-op Diagnosis: Left IT femur fracture Indication: Left IT femur fracture Procedure: Left hip long TFN Inf/Abcess present in the surg proc area at time of surgery?: No EBL: 50-100 Complications: None
[2018-02-24] MEDS ORDERED: HYDROmorphONE/DILAUDID 1 MG/ML INJ ONE (18:14)
[2018-02-24] MEDS: HYDROmorphONE/DILAUDID 1 MG/ML INJ IVP PRN ×2 (18:15→18:25)
--- NOTE | 2018-02-24 18:41 | PDHOSCONS ---
History and Physical - Chief Complaint Fell, leg pain - History of Present Illness 82 yo male, brought to ER after slipping and falling backwards at house, severe L leg pain. Denies hitting head or having other injuries. Denies feeling dizzy or light headed prev to fall. Denies LOC. Fall was unwitnessed but at home confirms story. Denies CP/SOB. Denies recent illness, no f/v/d/cough. Says OTW has been well, PCP at [facility]. History Information - Allergies/Home Medication List Allergies/Adverse Reactions: No Known Allergies Allergy (Unverified 08/23/16 21:28) Home Medications: Aspirin EC [Aspirin EC 81 mg (*)] 81 mg PO DAILY 12/22/15 [Last Taken 02/23/18] Atenolol [Tenormin 25 mg (*)] 25 mg PO DAILY 12/22/15 [Last Taken 02/23/18] Herbals/Supplements -Info Only 1 ea PO DAILY 12/22/15 [Last Taken 08/23/16] Lisinopril [Zestril 40 mg (*)] 40 mg PO DAILY 12/22/15 [Last Taken 02/23/18] Simvastatin [Zocor] 20 mg PO DAILY 12/22/15 [Last Taken 02/23/18] Multivitamins [Multivitamin (*)] 1 each PO DAILY 12/23/15 [Last Taken 02/23/18] Insulin Glargine [Lantus 100 UNITS/ML (*)] 27 units SC DAILY 08/24/16 [Last Taken 02/23/18] Insulin Regular Human [Humulin R 100 units/ml (*)] 5 unit SC 1130,1730 02/24/18 [Last Taken 02/23/18] Insulin Regular Human [Humulin R 100 units/ml (*)] 6 unit SQ DAILY 02/24/18 [ Last Taken 02/23/18] amLODIPine BESYLATE [Norvasc 2.5 mg (*)] 2.5 mg PO DAILY 02/24/18 [Last Taken ] metFORMIN HCL [Metformin HCl] 500 mg PO DAILY 02/24/18 [Last Taken 02/23/18] I have personally reviewed and updated: medical history, social history, surgical history - Past Medical History diabetes type 2 (insulind), hypertension, hyperlipidemia Additional medical history: on insulin since young adulhood. Denies prev AMI/ CVA. 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 Lives with his , is independent in all ADLs and very active. Review of Systems Review of Systems: ROS: 10pt was reviewed & negative except for what was stated in HPI & below Physical Exam Physical Exam: Temp Pulse Resp BP Pulse Ox 97.5 F 64 13 145/64 H 98 02/24/18 17:55 02/24/18 17:55 02/24/18 18:16 02/24/18 18:16 02/24/18 18:16 O2 (L/minute) 8 Constitutional: no apparent distress, appears nourished Eyes: anicteric sclera, EOMI Ears, Nose, Mouth, Throat: moist mucous membranes, hearing normal Cardiovascular: regular rate and rhythym, no murmur, rub, or gallop, No edema Respiratory: no respiratory distress, no rales or rhonchi, clear to auscultation Gastrointestinal: normoactive bowel sounds, soft, non-tender abdomen, no palpable masses Skin: warm, normal color Psychiatric: interacting appropriately, not anxious, not encephalopathic, thought process linear Lab Data & Imaging Review 02/24/18 14:15 02/24/18 14:15 WBC 9.17 10^3/uL (3.80-9.50) 02/24/18 14:15 RBC 5.13 10^6/uL (4.40-6.38) 02/24/18 14:15 Hgb 16.1 g/dL (13.7-17.5) 02/24/18 14:15 Hct 46.8 % (40.0-51.0) 02/24/18 14:15 MCV 91.2 fL (81.5-99.8) 02/24/18 14:15 MCH 31.4 pg (27.9-34.1) 02/24/18 14:15 MCHC 34.4 g/dL (32.4-36.7) 02/24/18 14:15 RDW 13.2 % (11.5-15.2) 02/24/18 14:15 Plt Count 192 10^3/uL (150-400) 02/24/18 14:15 MPV 10.5 fL (8.7-11.7) 02/24/18 14:15 Neut % (Auto) 78.6 % (39.3-74.2) H 02/24/18 14:15 Lymph % (Auto) 13.1 % (15.0-45.0) L 02/24/18 14:15 [place] % (Auto) 6.3 % (4.5-13.0) 02/24/18 14:15 Eos % (Auto) 1.1 % (0.6-7.6) 02/24/18 14:15 Baso % (Auto) 0.4 % (0.3-1.7) 02/24/18 14:15 Nucleat RBC Rel Count 0.0 % (0.0-0.2) 02/24/18 14:15 Absolute Neuts (auto) 7.20 10^3/uL (1.70-6.50) H 02/24/18 14:15 Absolute Lymphs (auto) 1.20 10^3/uL (1.00-3.00) 02/24/18 14:15 Absolute Monos (auto) 0.58 10^3/uL (0.30-0.80) 02/24/18 14:15 Absolute Eos (auto) 0.10 10^3/uL (0.03-0.40) 02/24/18 14:15 Absolute Basos (auto) 0.04 10^3/uL (0.02-0.10) 02/24/18 14:15 Absolute Nucleated RBC 0.00 10^3/uL (0-0.01) 02/24/18 14:15 Immature Gran % 0.5 % (0.0-1.1) 02/24/18 14:15 Immature Gran # 0.05 10^3/uL (0.00-0.10) 02/24/18 14:15 PT 13.7 SEC (12.0-15.0) 02/24/18 14:15 INR 1.03 (0.83-1.16) 02/24/18 14:15 APTT 25.9 SEC (23.0-38.0) 02/24/18 14:15 Sodium 140 mEq/L (135-145) 02/24/18 14:15 Potassium 3.8 mEq/L (3.3-5.0) 02/24/18 14:15 Chloride 108 mEq/L (97-110) 02/24/18 14:15 Carbon Dioxide 25 mEq/l (22-31) 02/24/18 14:15 Anion Gap 7 mEq/L (8-16) L 02/24/18 14:15 BUN 15 mg/dL (7-23) 02/24/18 14:15 Creatinine 0.8 mg/dL (0.7-1.3) 02/24/18 14:15 Estimated GFR > 60 02/24/18 14:15 Glucose 91 mg/dL (70-100) 02/24/18 14:15 POC Glucose 100 mg/dL (70-100) 02/24/18 17:52 Calcium 10.0 mg/dL (8.5-10.4) 02/24/18 14:15 Visualized and Interpreted EKG results: Yes Assessment & Plan Assessment: Closed comminuted intertrochanteric fracture of femur (Acute) -to OR per Dr Villalta, discussed care plan with him HT -continue home meds post op -will need prns now, per anesthesia DM, insulin dependent -check BS, SSI for now -will restart home regimen when eating pot op Full code DVT prophy- per ortho PCP- [facility] Disp- > 2 mdnts anticipated because of surgery and recovery, multiple co- morbidities
[2018-02-24] MEDS: OXYCODONE/APAP 5/325 TAB PO PRN ×2 (19:45→20:36)
--- NOTE | 2018-02-24 19:51 | GCON ---
[f rep st] CONSULTATION Patient Name: FREDRICK RAMOS JR N-Number: [id number] Date of : 1935 Patient Status: Inpatient Attending Doctor: Shelley Berger MD Consulting Doctor: Jeffrey Alba MD Date of service: 02/24/18 CPT codes: CPT code 66689 ER visit requiring admission or initial inpatient visit, level three Modifier 57 decision for surgery CHIEF COMPLAINT: Left hip pain HISTORY OF PRESENT ILLNESS: This is a very pleasant 82 year old male s/p a fall from standing earlier today (02/24/18) with a left intetrochanteric femur fracture with subtrochanteric extension. PROBLEM LIST: Left hip intertrochanteric femur fracture, DM type II, HTN, hyperlipidemia PAST MEDICAL HISTORY: Left hip intertrochanteric femur fracture, DM type II, HTN, hyperlipidemia SURGERIES: Appendectomy, tonsillectomy SOCIAL HISTORY: Denies tobacco, alcohol, or illicit drug use FAMILY HISTORY: Non-contributory CURRENT MEDICATIONS: ASA, atenolol, lisinopril, simvastatin, insulin, amlodipine, metformin ALLERGIES: NKDA REVIEW OF SYSTEMS Constitutional: No unexpected weight loss, weight gain, fevers, chills, or fatigue. Eyes: No blurred or double vision, no eye pain, redness or swelling. ENT: No headaches, difficulty swallowing, nose bleeds, tinnitus, or earaches. Cardiovascular: No chest pain, palpitations, fainting or murmurs. Respiratory: No shortness of breath, wheezing, cough, of difficulty breathing. GI: No reflux, no nausea or vomiting, no constipation, diarrhea, or bloody stools. Genitourinary: No urinary frequency or urgency, no pain with urination. Skin: No skin changes, rashes, itching, or redness. Neurologic: No unsteadiness of gait, no dizziness, tremors, or seizures. Psychiatric: No nervousness, anxiety, depression, or hallucinations. Hematologic: No increased bleeding or easy bruising. Endocrine: No excessive thirst or urination and no heat or cold intolerances. Allergic: No reactions to food or environment. Musculoskeletal: See history of present illness. PHYSICAL EXAM General: No apparent distress. Orientation: Alert and oriented times three Mood and affect: Calm, appropriate. Gait and station: JAYCOB Skin: Warm, dry. Lymph: Non tender neck, axillary and inguinal nodes. Chest: Equal expansion, no pain with deep breaths, speaks in coherent sentences. Cardiovascular: Regular pulse. Abdomen: Soft, non-tender, no masses, no palpable hernias. Bilateral hip examination Inspection/palpation: Right: Soft, non-tender. Left: TTP overlying the left hip Range of motion Flexion: 100 / JAYCOB / 100 Extension: 30 / JAYCOB / 30 Abduction: 40 / JAYCOB / 40 Adduction: 20 / JAYCOB / 20 Strength (R / L / Normal) Muscle(s) Quadriceps (L3-L4): Hamstrings (L4-L5): Tibialis anterior (L4): EHL (L5): FHL (S1): Gastroc-soleus (S1): Sensory (R / L / Normal) Dermatomes L1 (groin): + / + / + L2 (medial upper thigh): + / + / + L3 (anterior thigh): + / + / + L4 (medial ankle): + / + / + L5 (first dorsal web space): + / + / + S1 (lateral border of foot): + / + / + Peripheral nerves Superficial peroneal: + / + / + Deep peroneal: + / + / + Sural: + / + / + Tibial: + / + / + Saphenous: + / + / + Vascular exam (R / L / Normal) Dorsalis pedis: 2+ / 2+ / 2+ Tibialis posterior: 2+ / 2+ / 2+ Medical decision making Data Imaging study: AP pelvis and left hip radiographs, three views Action: interpreted Interpretation / pertinent findings: Left hip intertrochanteric femur fracture with subtrochanteric extension Diagnoses New diagnosis: Left hip intertrochanteric femur fracture with subtrochanteric extension Work-up planned: yes: see assessment and plan Assessment and plan This is an 82 year old male with a left hip intertrochanteric femur fracture with subtrochanteric extension after a fall from standing earlier today (02/24/18) -As such I have discussed with the patient the risks, benefits, alternatives, and complications associated with both non-operative (specifically, observation ) and operative (specifically, left hip and femur open reduction and internal fixation) forms of treatment -The patient fully understands the risks, benefits, alternatives, and complications of both forms of treatment and the patient wishes to proceed with operative intervention as outlined above - He has signed the informed consent form for surgery and surgery will be performed as soon as the OR is available - The patient has been cleared by the hospitalist team for surgery (Dr. Shelley Berger) Time I have spent 80 minutes of [id number] time with the patient during this visit. Over fifty percent of this time was spent counseling the patient on the risks, benefits, alternatives, and complications of both non-operative and operative forms of treatment as outlined above. /[id number]/MODL MTDD
--- NOTE | 2018-02-24 19:51 | GOP ---
[f rep st] OPERATIVE REPORT PATIENT: FREDRICK RAMOS DATE OF SERVICE: 02/24/18 PATIENT DATE OF : 1935 SURGEON: Jeffrey Alba M.D. OIL TREATER: None ANESTHESIA: General PRE-OPERATIVE DIAGNOSES: Left intertrochanteric femur fracture (ICD-10 code S72.143A Intertrochanteric femur fracture) Left subtrochanteric femur fracture (ICD-10 code S72.23A Subtrochanteric femur fracture) POST-OPERATIVE DIAGNOSES: Left intertrochanteric femur fracture (ICD-10 code S72.143A Intertrochanteric femur fracture) Left subtrochanteric femur fracture (ICD-10 code S72.23A Subtrochanteric femur fracture) OPERATIVE PROCEDURES: CPT code 85765 Treatment of an intertrochanteric femur fracture with an intramedullary implant EBL: 100cc COMPLICATIONS: None IMPLANTS: Synthes trochanteric fixation nail, 130 degree angle, 11 mm in diameter by 380 mm long with a 95 mm helical blade and a 42 mm distal interlocking bolt BRIEF CLINICAL NOTE: This is a very pleasant 84 year old male with a significant history for a left intertrochanteric femur fracture with subtrochanteric extension. As such, I have discussed the risks, benefits, alternatives, and complications associated with both non-operative (specifically , observation) and operative (specifically, left femur reduction and internal fixation) forms of treatment. The patient fully understands the risks, benefits , alternatives, and complications associated with both forms of treatment and wishes to proceed with operative intervention as outlined above. The patient has signed the informed consent form for surgery. OPERATIVE NOTE: On the day of surgery, all of the patients questions were answered. The patient was then transferred from the pre-operative area into the operating room and a formal, Time-Out procedure was performed. The patient was identified by name, medical record number, social security number, and date of . In addition, the patients left lower extremity was identified as the correct portion of the patients body for surgery with the patients left femur being identified as the correct portion of that extremity for surgery. The anesthesia team administered pre-operative antibiotics for prophylaxis. The patient was then moved onto the fracture table and the left lower extremity was placed in traction. The extremity was then prepped and draped in the normal sterile fashion. A sterile marking pen was then utilized to ashley out the tip of the greater trochanter and 2-3 cm incision several centimeters proximal to the tip of the greater trochanter. A number 15 blade was then used to incise the skin and meticulous hemostasis was obtained in the subcutaneous plane. The abductor fascia was then split longitudinally to provide access to the tip of the greater trochanter. The starting guidewire was then advanced through the wound onto the tip of the greater trochanter. The guidewire was then advanced into the proximal femur. Appropriate guidewire positioning was then confirmed on both PA and lateral C-arm images. Next, the starting reamer was then advanced over the guidewire to create an entry point into the proximal femur. Following this, the guidewire and the starting reamer were then removed and a ball-tipped guidewire was advanced into the proximal femoral canal and down to the level of the distal femoral metaphysis. The guidewires position was confirmed on both PA and lateral C-arm images at the knee, the femoral shaft, and the proximal femur. The guidewire was then measured at a length of 380 mm. Next, the femur was reamed over the guidewire starting with a 8.5 mm reamer and increasing in 0.5mm increments up to a 12.5 mm reamer. The last reamer provided for an excellent fit at the level of the isthmus. As such, an 11 mm diameter by 380mm long 130 degree angle trochanteric fixation nail was then opened and attached to the impaction device. The trochanteric fixation nail was then advanced over the ball-tipped guidewire under fluoroscopic control. Next, the outrigger aiming arm was attached to the impaction device and a separate incision was made to allow for insertion of the helical blade. The aiming guide for the helical blade was then advanced through this separate incision and brought into direct contact with the lateral femoral cortex. The guidewire was then advanced through the aiming arm into the proximal femur extending into the lower portion of the femoral neck and head. Appropriate guidewire positioning was then confirmed on both PA and lateral C-arm fluoroscopy. Next, the large drill was utilized to open the lateral femoral cortex. The guidewire was then measured at a length of 95 mm and the stepped reamer was then set for this length. The guidewire was then over drilled with the stepped reamer. Following this, a 95 mm helical blade was then selected and opened and attached to the impaction device. The helical blade was then inserted over the guidewire. Its positioning was confirmed on both PA and lateral C-arm fluoroscopy. Next, the aiming guide for the helical blade was then utilized to compress across at the site of the fracture and then the helical blade was locked into place through the proximal end of the nail. Following this, one distal interlocking bolt was then inserted through a static hole at the distal end of the nail. Final PA and lateral C-arm fluoroscopic images were then obtained at the level of the hip, the femoral shaft, and the knee. All images demonstrated anatomic reduction at the site of the fracture as well as appropriate implant positioning and length in all views. These images were printed and saved. Next, all incisions were copiously irrigated with sterile normal saline. The fascia was re-approximated with 2-0 vicryl sutures and the skin was re- approximated with surgical carlos. The skin was then cleaned with sterile normal saline and dried. A mixture of 1% lidocaine and 0.5% Marcaine was then utilized to provide local anesthesia at the operative sites. Xeroform gauze dressings were then applied followed by a dry sterile dressing and an occlusive Ioban dressing. The patient was then reversed from anesthesia and transferred from the operating room table onto the post-operative gurney. The patient was then transferred from the operating room to the PACU in stable condition. POST-OPERATIVE PLAN: The current dressings will be left in place but can be reinforced. The patient may WBAT on his left lower extremity. /[id number]/MODL MTDD
[2018-02-24] MEDS: INSULIN REGULAR HUMAN 100 UNIT/ML UNIT SC SCH ×2 (20:34→22:15)
[2018-02-24] MEDS: HEPARIN 5,000 UNIT/0.5 ML INJ SC SCH (22:11)
[2018-02-25] MEDS: HEPARIN 5,000 UNIT/0.5 ML INJ SC SCH ×3 (05:31→22:35)
--- NOTE | 2018-02-25 06:14 | SOAPPROG ---
SOAP Progress Note Assessment/Plan: Assessment: HPI: 82 year old male POD #0 from left hip long TFN for an IT femur fracture on 02/24/18. PE: Gen: NAD AVSS LLE: Dressings CDI +Q, H, TA, EHL, FHL, G/S +SILT in DP, SP, Sural, T, Saphenous distributions 2+DP and PT pulses Assessment and Plan: 82 year old male POD #0 from left hip long TFN for an IT femur fracture on . -WBAT on LLE with assistance as needed -PT and OT for rehab -Leave current dressing in place and keep clean and dry -FU as an outpatient in 2 weeks for a wound check Objective: Vital Signs Temp Pulse Resp BP Pulse Ox 36.6 C 77 16 126/58 H 99 02/25/18 04:00 02/25/18 04:00 02/25/18 04:00 02/25/18 04:00 02/25/18 04:00 Laboratory Results 02/24/18 14:15 02/24/18 14:15 02/24/18 02/25/18 02/26/18 05:59 05:59 05:59 Intake Total 800 Output Total 600 Balance 200 PT 13.7 SEC (12.0-15.0) 02/24/18 14:15 INR 1.03 (0.83-1.16) 02/24/18 14:15 ICD10 Worksheet Patient Problems: Problems Problem Status Onset Closed comminuted intertrochanteric fracture of femur Acute CVA (cerebral vascular accident) Acute Expressive aphasia Acute Hypoglycemia Acute
[2018-02-25] MEDS: OXYCODONE/APAP 5/325 TAB PO PRN ×2 (08:19→14:19)
[2018-02-25] MEDS: INSULIN REGULAR HUMAN 100 UNIT/ML UNIT SC SCH ×5 (08:20→22:35)
--- NOTE | 2018-02-25 08:24 | HOSPPROG ---
Hospitalist Progress Note Assessment/Plan: Closed comminuted intertrochanteric fracture of femur (Acute) -s/p ORIF yesterday Dr Villalta -pt/ot -anticoag per orth HTN -stable on home meds DM, insulin dependent -restart insulin as on full diet now Full code DVT prophy- per ortho PCP- Aparicio Dispo- > 2 mdnts anticipated because of surgery and recovery, multiple co- morbidities Subjective: Feels OK, pain in L leg but OK with meds. Just had moreau removed, hasn't urinate yet. No CP/SOB/n/v/d. No family in room but I called and spoke with son while I was in the room. Objective: Vital Signs Temp Pulse Resp BP Pulse Ox 98.1 F 78 16 138/65 H 98 02/25/18 07:33 02/25/18 07:33 02/25/18 07:33 02/25/18 07:33 02/25/18 07:33 Laboratory Results 02/24/18 14:15 02/25/18 06:45 02/23/18 02/24/18 02/25/18 11:59 11:59 11:59 Intake Total 800 Output Total 850 Balance -50 PT 13.7 SEC (12.0-15.0) 02/24/18 14:15 INR 1.03 (0.83-1.16) 02/24/18 14:15 - Physical Exam Constitutional: no apparent distress, appears nourished Eyes: anicteric sclera, EOMI Ears, Nose, Mouth, Throat: moist mucous membranes, hearing normal Cardiovascular: regular rate and rhythym, No edema Respiratory: no respiratory distress, no rales or rhonchi, clear to auscultation Gastrointestinal: normoactive bowel sounds, soft, non-tender abdomen, no palpable masses Skin: warm Psychiatric: interacting appropriately, not anxious, not encephalopathic, thought process linear ICD10 Worksheet Patient Problems: Problems Problem Status Onset Closed comminuted intertrochanteric fracture of femur Acute
[2018-02-25] MEDS: ATORVASTATIN CALCIUM 10 MG TAB PO SCH (10:30)
[2018-02-25] MEDS: LISINOPRIL 40 MG TAB PO SCH (10:31)
[2018-02-25] MEDS: ATENOLOL 25 MG TAB PO SCH (10:31)
--- NOTE | 2018-02-25 11:18 | ASMTCMCOM ---
CM Note CM Note Notes: Pt had surgery for femur fx after a fall at home. Pt with diabetes and hypertension. 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 PT/OT rec SNF. Referral sent to [facility] in [employer]. Pt agreeable to SNF if [facility] approves. CM to follow. Date Signed: 02/25/2018 11:17 AM Electronically Signed By:KERA Don
--- NOTE | 2018-02-25 11:54 | PDMN ---
Medical Necessity Medical necessity: [facility] S615 Hip Fracture, Open Repair, 3 days: 82 y/o with hip fracture status post ORIF.
[2018-02-25] MEDS ORDERED: MAGNESIUM HYDROXIDE 30 ML UDCUP PO PRN (13:30)
[2018-02-25] MEDS ORDERED: LACTULOSE 20 GM/30 ML UDCUP PO PRN (13:30)
[2018-02-25] MEDS ORDERED: BISACODYL 10 MG SUPP PR PRN (13:30)
[2018-02-25] MEDS ORDERED: POLYETHYLENE GLYCOL 3350 17 GM PKT PO PRN (13:30)
[2018-02-25] MEDS: INSULIN GLARGINE 100 UNITS/ML UNIT SC SCH (16:03)
[2018-02-25] MEDS ORDERED: NS 250 ML IV ONE (18:45)
[2018-02-25] MEDS: SENNOSIDES/DOCUSATE SODIUM TAB PO SCH (22:35)
[2018-02-26] MEDS: NS 1,000 ML IV SCH ×2 (04:07→14:20)
[2018-02-26] MEDS: HEPARIN 5,000 UNIT/0.5 ML INJ SC SCH ×3 (05:43→21:46)
[2018-02-26] MEDS: INSULIN GLARGINE 100 UNITS/ML UNIT SC SCH (08:29)
[2018-02-26] MEDS: metFORMIN HCL 500 MG TAB PO SCH (08:30)
[2018-02-26] MEDS: INSULIN REGULAR HUMAN 100 UNIT/ML UNIT SC SCH ×6 (08:32→20:45)
[2018-02-26] MEDS: SENNOSIDES/DOCUSATE SODIUM TAB PO SCH ×2 (08:34→20:45)
[2018-02-26] MEDS: LISINOPRIL 40 MG TAB PO SCH (08:35)
[2018-02-26] MEDS: ATORVASTATIN CALCIUM 10 MG TAB PO SCH (08:35)
[2018-02-26] MEDS: ATENOLOL 25 MG TAB PO SCH (08:36)
[2018-02-26] MEDS: OXYCODONE/APAP 5/325 TAB PO PRN (08:42)
--- NOTE | 2018-02-26 09:16 | WOCRNPDOC ---
WOCRN Advanced Assessment Note - Skin Integrity Problem, Advanced Assess Left Heel Dressing Type: Open to Air Mei Wound Tissue: Blanching Skin Integrity Problem Comment: Wound care asked to look at left heel. Heel is pink and blanching. Patient repositioned so that a pillow is off-loading the foot on the stool. Recommended heel boots to help with off-loading. Wound care will not be rounding on this wound. Please re-consult PRN.
--- NOTE | 2018-02-26 15:13 | HOSPPROG ---
Hospitalist Progress Note Assessment/Plan: Patient is an 82-year-old male who was brought to the emergency room after slipping and falling backwards at his house. He was complaining of severe left leg pain. He denies hitting his head or having any other injury. Today is my 1st encounter with the patient. Chart reviewed. Closed comminuted intertrochanteric fracture of femur (Acute) -s/p ORIF -pt/ot HTN -stable on home meds DM, insulin dependent -restart insulin as on full diet now gait instability w a resultant fall -to go to [facility] tomorrow dvt prophylaxis: heparin tid sq plan:dc fluids, he is eating and drinking well, check labs in a.m.; patient should be ready for dc in the morning. Subjective: Ruddy is feeling overall well, has no complaints. Objective: Vital Signs Temp Pulse Resp BP Pulse Ox 36.5 C 62 16 144/67 H 92 02/26/18 07:47 02/26/18 08:36 02/26/18 07:47 02/26/18 08:36 02/26/18 07:47 Laboratory Results 02/24/18 14:15 02/25/18 06:45 02/25/18 02/26/18 02/27/18 05:59 05:59 05:59 Intake Total 800 1990 1650 Output Total 850 495 300 Balance -50 1495 1350 PT 13.7 SEC (12.0-15.0) 02/24/18 14:15 INR 1.03 (0.83-1.16) 02/24/18 14:15 - Physical Exam Constitutional: no apparent distress, appears nourished Eyes: PERRL Ears, Nose, Mouth, Throat: hearing normal Cardiovascular: regular rate and rhythym, no murmur, rub, or gallop Respiratory: no respiratory distress Gastrointestinal: normoactive bowel sounds Skin: warm, other (left hip w swelling) Neurologic: AAOx3 Psychiatric: interacting appropriately ICD10 Worksheet Patient Problems: Problems Problem Status Onset Closed comminuted intertrochanteric fracture of femur Acute
--- NOTE | 2018-02-26 16:06 | ASMTCMCOM ---
CM Note CM Note Notes: [facility] has approved SNF; [facility] accepts pt who will d/c when medically stable. Date Signed: 02/26/2018 04:06 PM Electronically Signed By:KERA Don
[2018-02-27] MEDS: HEPARIN 5,000 UNIT/0.5 ML INJ SC SCH ×2 (05:26→14:08)
[2018-02-27] MEDS: OXYCODONE/APAP 5/325 TAB PO PRN ×2 (05:27→15:06)
[2018-02-27] MEDS: INSULIN REGULAR HUMAN 100 UNIT/ML UNIT SC SCH ×3 (08:32→13:08)
[2018-02-27] MEDS: ATENOLOL 25 MG TAB PO SCH (08:32)
[2018-02-27] MEDS: LISINOPRIL 40 MG TAB PO SCH (08:32)
[2018-02-27] MEDS: SENNOSIDES/DOCUSATE SODIUM TAB PO SCH (08:32)
[2018-02-27] MEDS: metFORMIN HCL 500 MG TAB PO SCH (08:33)
[2018-02-27] MEDS: ATORVASTATIN CALCIUM 10 MG TAB PO SCH (08:33)
[2018-02-27] MEDS: INSULIN GLARGINE 100 UNITS/ML UNIT SC SCH (09:11)
--- NOTE | 2018-02-27 12:34 | HOSPPROG ---
Hospitalist Progress Note Assessment/Plan: Patient is an 82-year-old male who was brought to the emergency room after slipping and falling backwards at his house. He was complaining of severe left leg pain. He denies hitting his head or having any other injury. Closed comminuted intertrochanteric fracture of femur (Acute) -s/p ORIF -pt/ot anemia -post op/ expected blood loss -will have this rechecked at SNF HTN -stable on home meds DM, insulin dependent -restart insulin as on full diet now gait instability w a resultant fall -to go to [facility] dvt prophylaxis: heparin tid sq plan: dc today Subjective: Ruddy is feeling well overall, no complaints. Objective: Vital Signs Temp Pulse Resp BP Pulse Ox 36.6 C 69 16 137/67 H 96 02/27/18 07:56 02/27/18 08:32 02/27/18 07:56 02/27/18 08:33 02/27/18 07:56 Laboratory Results 02/27/18 04:32 02/25/18 06:45 02/26/18 02/27/18 02/28/18 05:59 05:59 05:59 Intake Total 1989 3525 500 Output Total 495 1750 300 Balance 1495 1775 200 PT 13.7 SEC (12.0-15.0) 02/24/18 14:15 INR 1.03 (0.83-1.16) 02/24/18 14:15 - Physical Exam Constitutional: no apparent distress, appears nourished Eyes: PERRL Ears, Nose, Mouth, Throat: hearing normal Cardiovascular: regular rate and rhythym Respiratory: no respiratory distress Skin: warm, other (left hip and left upper thigh area w swelling) Musculoskeletal: generalized weakness Neurologic: AAOx3 Psychiatric: interacting appropriately ICD10 Worksheet Patient Problems: Problems Problem Status Onset Closed comminuted intertrochanteric fracture of femur Acute
--- NOTE | 2018-02-27 13:18 | PDIAF ---
- Diagnosis Diagnosis: left femur fx s/p ORIF, anemia, diabetes Code Status: Full Code - Medication Management Discharge Medications: Medications to Continue on Transfer Aspirin EC [Aspirin EC 81 mg (*)] 81 mg PO DAILY 12/22/15 [Last Taken 02/23/18] Atenolol [Tenormin 25 mg (*)] 25 mg PO DAILY 12/22/15 [Last Taken 02/23/18] Herbals/Supplements -Info Only 1 ea PO DAILY 12/22/15 [Last Taken 08/23/16] Lisinopril [Zestril 40 mg (*)] 40 mg PO DAILY 12/22/15 [Last Taken 02/23/18] Simvastatin [Zocor] 20 mg PO DAILY 12/22/15 [Last Taken 02/23/18] Multivitamins [Multivitamin (*)] 1 each PO DAILY 12/23/15 [Last Taken 02/23/18] Insulin Glargine [Lantus 100 UNITS/ML (*)] 27 units SC DAILY 08/24/16 [Last Taken 02/23/18] Insulin Regular Human [Humulin R 100 units/ml (*)] 5 unit SC 1130,1730 02/24/18 [Last Taken 02/23/18] Insulin Regular Human [Humulin R 100 units/ml (*)] 6 unit SQ DAILY 02/24/18 [ Last Taken 02/23/18] amLODIPine BESYLATE [Norvasc 2.5 mg (*)] 2.5 mg PO DAILY 02/24/18 [Last Taken ] metFORMIN HCL [Metformin HCl] 500 mg PO DAILY 02/24/18 [Last Taken 02/23/18] Acetaminophen [Tylenol 325mg (*)] 650 mg PO Q4HRS PRN tab 02/27/18 [Last Taken Unknown] Heparin [Heparin SC 5000 unit/0.5 ml (*)] 5,000 unit SC Q8 inj 02/27/18 [Last Taken Unknown] Polyethylene Glycol 3350 [Miralax 17 gm (*)] 17 gm PO DAILY PRN pkt 02/27/18 [ Last Taken Unknown] Sennosides/Docusate Sodium [Senokot-S] 1 - 2 tab PO BID tab 02/27/18 [Last Taken Unknown] oxyCODONE/APAP 5/325 [Percocet 5/325 (*)] 1 - 2 tab PO Q4HRS PRN tab 02/27/18 [ Last Taken Unknown] Discharge Medications: Refer to the Discharge Home Medication list for PRN reason. PICC Care - Routine: N/A - Orders Services needed: Physical Therapy, Occupational Therapy Diet Recommendation: no restrictions on diet, ADA 2200 consistent carb Diet Texture: Regular Texture Diet Additional Instructions: WBAT on LLE with assistance as needed Keep original dressing place and keep clean and dry FU as an outpatient in 2 weeks for a wound check. Call [facility] for Orthopedics to schedule follow-up appointment-'s continue heparin tid sq until more mobile, cont at least for 14-21 days start aspirin in one week - Labs/Radiology BMP Date: 03/02/18 HCT/HGB Date: 03/02/18 - Follow Up Care Current Providers and Referrals: Jeffrey Alba MD [Medical Doctor] - Patient,NotPresent [Unknown] - As per Instructions
--- NOTE | 2018-02-27 13:37 | GDS ---
[f rep st] DISCHARGE SUMMARY DISCHARGE DIAGNOSES: 1. Closed comminuted intertrochanteric femur fracture. 2. Anemia. 3. Hypertension. 4. Diabetes type 2, insulin dependent. 5. Gait instability. CONSULTATION: Dr. Villalta. HPI: Briefly, the patient is an 82-year-old male, who was brought to the emergency room after slippi ng and falling backwards at his house. He was complaining of severe leg pain, and it was noted that he had a fracture of his femur. He was seen and evaluated by Dr. Villalta. He had surgery and overal l has done well in the postop setting. HOSPITAL COURSE PER PROBLEM: 1. Closed comminuted intertrochanteric fracture of the femur. He will be weightbearing as tolerated on the left lower extremity. He will follow up with Dr. Villalta in 2 weeks. Recommendation is to l eave the current dressing in place. 2. Anemia. This is in the postop setting. We [facility] monitored at [facility]. 3. Hypertension. Blood pressure stable. 4. Diabetes type 2. Resumed his metformin as well as his insulin. 5. Gait instability. He will go to [facility] for physical therapy and occupational therapy. DISCHARGE CONDITION: Stable. Blood pressure is 137/67, respiratory rate is 16, pulse is 69, tempera ture is 36.6 Celsius, O2 sats on room air 96%. MEDICATIONS AT DISCHARGE: Please see the EMR. DISCHARGE INSTRUCTIONS: 1. To continue heparin t.i.d. until the patient is much more mobile. Continue at least for 14 more days. 2. Hold his aspirin for 1 more week. 3. To follow up with Dr. Villalta in 1 to 2 weeks. 4. If the patient develops fever, chills, chest pain or shortness of breath, return to the ER. Greater than 30 minutes discharging and coordinating the patient's care. /[id number]/MODL
--- NOTE | 2018-02-27 14:33 | ASMTDCNOTE ---
Case Management Discharge Discharge Order Complete? Answers: Yes Patient to Obtain Answers: Other Notes: [facility] Transportation Arranged Answers: Other Notes: [facility] Transport will Pick (Date 02/27/2018 05:00 PM & Time) Faxed Final Orders Answers: Yes Family Notified Answers: Yes Notes: dtr present Discharge Comments Notes: Pt will dc today to [facility]. Spoke w/Lynne who confirmed they are ready to accept, transport set up, orders/info sent through [employer]. Discussed w/RN who will call report as well as w/pt and dtr who are in agreement w/dc plan. Date Signed: 02/27/2018 02:32 PM Electronically Signed By:Tangela Gallo RN
[2018-02-27 15:54] VITALS: BP 111/45
== END 2018-02-27 17:23 | DRG 482 ==
LOC: EDUNIT# → F3N 18:30
PROVIDERS: ADMIT Family Medicine; ATTEND Family Medicine
PROC: 0QS706Z Reposition Left Upper Femur with Intramedullary Internal Fixation Device, Open Approach (ICD-10-PCS; principal; 2018-02-24 14:30)
DX: S72.142A Displaced intertrochanteric fracture of left femur, initial encounter for closed fracture (principal); S72.23XA Displaced subtrochanteric fracture of unspecified femur, initial encounter for closed fracture; I10 Essential (primary) hypertension; E11.9 Type 2 diabetes mellitus without complications; R26.81 Unsteadiness on feet; D64.9 Anemia, unspecified; E78.5 Hyperlipidemia, unspecified; W08.XXXA Fall from other furniture, initial encounter; Y92.019 Unspecified place in single-family (private) house as the place of occurrence of the external cause; Z79.4 Long term (current) use of insulin
CPT/HCPCS: 96374; 97116-GP; 97161-GP; 97166-GO; 97535-GO; C1713; J0690; J1170; J1644; J1815; J2405; J2704; J3010

== ENCOUNTER 2018-10-11 05:08 | Inpatient (IN) | payer OTHER ==
[2018-10-11] MEDS ORDERED: NS 1,000 ML IV ONE ×4 (05:24→08:00)
[2018-10-11] MEDS ORDERED: PROPOFOL 200 MG/20 ML VIAL IVP ONE (05:25)
[2018-10-11] MEDS ORDERED: ETOMIDATE 40 MG/20 ML INJ IVP ONE (05:25)
[2018-10-11 05:31] LABS: PLATELET COUNT 261 10^3/uL (150-400)
--- NOTE | 2018-10-11 05:32 | EDPHY ---
H & P Stated Complaint: found unresponsive slumped next to bed, BG high, emergent arrival by EMS Time Seen by Provider: 10/11/18 05:26 HPI/ROS: HPI CHIEF COMPLAINT: Unresponsive. HISTORY OF PRESENT ILLNESS: This is a 82-year-old male presents emergency room by emergent ambulance for being unresponsive. His called 911. He was last seen normal at 10:00 p.m.. The patient was found between the dresser in his bed. He is in a crowd seated position. is unsure what happened. Patient presents emergency room by EMS unresponsive GCS 3. He is breathing 30 times per minute He was placed in ER room 2. His heart rate was in the 90s. Blood pressure 103/47, respiratory 30. He arrives and has a blood sugar of over 700. He is tachypneic. No visible head trauma. He does have abrasions to his left shoulder. Upon arrival patient is a GCS 3 unresponsive will not respond to painful or verbal stimuli. The patient's is at bedside reports to me that he is a full code, that he would want to be intubated and CPR if need be. Patient had a blood sugar upon arrival of over 700. The decision was made to emergently intubate upon arrival the patient is not protecting his airway and has a GCS of 3. reports only medical problem is insulin-dependent diabetes. Past Medical History: Insulin-dependent diabetes, hypertension, anemia, gait instability Past Surgical History: Hip surgery. Social History: Lives locally, at bedside. Full code. Denies drugs alcohol tobacco. Family History: Noncontributory ROS REVIEW OF SYSTEMS: 10 Systems were reviewed and negative with the exception of the elements mentioned in the history of present illness. Exam Constitutional unresponsive GCS of 3. Eyes pupils 2 mm equal. HENT dry mucous membrane with posterior pharynx secretions present. Respiratory tachypnea. Clear lungs bilaterally. Cardiovascular rate normal, regular rhythm, no murmur, no edema, distal pulses normal. Gastrointestinal soft, non-tender, no rebound, no guarding, normal bowel sounds, no distension, no pulsatile mass. Genitourinary no CVA tenderness. Musculoskeletal good distal pulses throughout. Skin warm skin, abrasions to the left shoulder. Neurologic unresponsive GCS of 3. Differential Diagnosis: Includes but is not limited to in a particular order acute respiratory failure, DKA, HONK, Acidosis, aspiration pneumonia, bacteremia , sepsis, intracranial bleed, trauma Medical Decision Making: Plan for this patient he was emergently intubated upon arrival to the emergency room. Plan for patient 2 large-bore IVs, IV fluid bolus, blood glucose, chest x-ray, CT scan head and neck for trauma, ABG, check electrolytes. Re-evaluation: . Upon arrival blood sugar over 700. Patient unresponsive Patient emergently intubated upon arrival. ED intubation: Indication respiratory failure, GCS of 3, unresponsive. Consent obtained from the at bedside. The patient was preoxygenated with a non-rebreather and high-flow nasal cannula. Patient was given 20 mg of IV etomidate A 7.5 endotracheal tube was placed directly through the cords. I was able to visualize his cords directly. MAC 4 blade was used. No complications. Endotracheal tube 24 at the lips. Good capnography for change. Good humidified air exchange. Bilateral breath sounds on exam. Chest x-ray pending. Chest x-ray one view: Endotracheal tube in good position. Clear lung knapp. No pneumonia. Critical Care: Total Critical Care Time Spent Managing this Patient: 85Minutes. This time was spent Exclusively with this patient. This Care was exclusive of procedures. The Organ System/life at risk was unresponsive, respiratory failure, hyperglycemia This Patient was in Critical Condition because unresponsive hyperglycemia, respiratory failure Consult the hospitalist service for ICU admission. 0600AM. Dr. Grant. EKG interpretation by me on record in [employer] system. Impression time of EKG 5:12 a.m., sinus rhythm rate of 69, incomplete right bundle-branch block. No acute ischemia. 0602: Patient's chemistry resulted. Blood sugar over 1100. Bicarb is less than 5. Patient started on insulin drip. Patient received 2 L of fluid normal saline. Patient severe DKA. ABG pending. Will adjust vent based on ABG. Patient is tachypneic breathing over the vent at 26. Plan for ICU admission for DKA, severe dehydration, GCS of 3 unresponsive respiratory failure. Potassium is 6.8 however corrects with a blood glucose of 1100. Insulin drip ordered. Spoke with Markus 1 call at 6:15 a.m. There glad for us to keep the patient and treat him. They do report to me he has diabetes, CKD stage 2, hypertension, hyperlipidemia they report to me his hemoglobin A1c was 6.5 in February. They deny him having history of cardiovascular heart disease or CVA in the past. Plan for ICU admission. They did not feel that he needs to be transferred in a critical state that he is in at this time. CT scan head without contrast and CT cervical spine without contrast faxed to me by direct Radiology at time 5:32 a.m. No acute intracranial abnormality limited evaluation of the cervical spine due to motion but no gross fracture or traumatic subluxation identified Source: Patient, EMS - Personal History Current Tetanus/Diphtheria Vaccine: Unsure Current Tetanus Diphtheria and Acellular Pertussis (TDAP): Unsure - Medical/Surgical History Hx Asthma: No Hx Chronic Respiratory Disease: No Hx Diabetes: Yes Hx Cardiac Disease: No Hx Renal Disease: No Hx Cirrhosis: No Hx Alcoholism: No Hx HIV/AIDS: No Hx Splenectomy or Spleen Trauma: No Other PMH: DM, cataract surgeries, appendectomy, tonsilectomy ([id number]), HTN, hyperlipidemia - Social History Smoking Status: Never smoked Constitutional: Initial Vital Signs Heart Rate 78 10/11/18 05:17 Respiratory Rate 30 H 10/11/18 05:17 Blood Pressure 117/42 L 10/11/18 05:17 O2 Sat (%) 99 10/11/18 05:17 O2 Delivery Mode Ventilator O2 (L/minute) 15 Allergies/Adverse Reactions: No Known Allergies Allergy (Unverified 10/11/18 05:16) Home Medications: Medication Instructions Recorded Aspirin EC [Aspirin EC 81 mg (*)] 81 mg PO DAILY 12/22/15 Atenolol [Tenormin 25 mg (*)] 25 mg PO DAILY 12/22/15 Lisinopril [Zestril 40 mg (*)] 40 mg PO DAILY 12/22/15 Simvastatin [Zocor] 20 mg PO DAILY 12/22/15 Insulin Glargine [Lantus 100 30 units SC DAILY 08/24/16 UNITS/ML] Alendronate Sodium [Fosamax 70 MG 70 mg PO Q7D 10/11/18 (*)] Cholecalciferol Vit D3 [Vitamin D3 1,000 units PO DAILY 10/11/18 (*)] Tamsulosin HCl [Flomax 0.4 MG (*)] 0.4 mg PO DAILY 10/11/18 amLODIPine BESYLATE [Norvasc 5 mg 5 mg PO HS 10/11/18 (*)] metFORMIN HCL [Glucophage 1000 mg] 1,000 mg PO BIDMEAL 10/11/18 Medical Decision Making - Data Points Laboratory Results: Laboratory Results 10/11/18 05:13 10/11/18 05:13 Medications Given: Acetaminophen (Tylenol) 650 mg PO Q4HRS PRN PRN Reason: Pain, Mild/Fever, Can Take PO Stop: 04/09/19 06:56 Last Admin: 10/11/18 17:17 Dose: 650 mg Amlodipine Besylate (Norvasc) 5 mg PO HS JACOB Stop: 04/09/19 20:59 Last Admin: 10/11/18 21:51 Dose: 5 mg Chlorhexidine Gluconate (Peridex) 15 ml PO BID JACOB Stop: 04/09/19 08:59 Last Admin: 10/11/18 21:51 Dose: 15 ml Hydralazine HCl (Apresoline) 10 mg IVP Q6HRS PRN PRN Reason: SBP Greater Than Stop: 04/10/19 06:36 Last Admin: 10/12/18 06:51 Dose: 10 mg Propofol (Diprivan 10 Mg/Ml (Premix)) 100 mls @ 0 mls/hr IV CONT JACOB; Per Protocol PRN Reason: Protocol Stop: 04/09/19 06:59 Last Admin: 10/11/18 08:15 Dose: 100 mls Sodium Chloride (Ns) 1,000 mls @ 150 mls/hr IV CONT JACOB Stop: 04/09/19 06:59 Last Admin: 10/11/18 18:20 Dose: 1,000 mls Famotidine/Sodium Chloride (Pepcid 20 Mg (Premix)) 50 mls @ 200 mls/hr IV Q12HRS JACOB Stop: 04/09/19 08:59 Last Admin: 10/11/18 21:48 Dose: 50 mls Piperacillin/Tazobactam/Dextrose (Zosyn 2.25 Gm (Premix)) 50 mls @ 100 mls/hr IV Q6HRS JACOB PRN Reason: Protocol Stop: 11/10/18 17:59 Last Admin: 10/12/18 05:35 Dose: 50 mls Discontinued Medications Enoxaparin Sodium (Lovenox) 40 mg SC DAILY JACOB Stop: 04/09/19 16:44 Last Admin: 10/11/18 17:14 Dose: 40 mg Enoxaparin Sodium (Lovenox) 50 mg SC ONCE ONE Stop: 10/11/18 18:31 Last Admin: 10/11/18 18:36 Dose: 50 mg Etomidate (Etomidate) 20 mg IVP EDNOW ONE Stop: 10/11/18 05:26 Last Admin: 10/11/18 05:18 Dose: 20 mg Sodium Chloride (Ns) 1,000 mls @ 0 mls/hr IV EDNOW ONE; Wide Open PRN Reason: Protocol Stop: 10/11/18 05:25 Last Admin: 10/11/18 05:15 Dose: 1,000 mls Sodium Chloride (Ns) 1,000 mls @ 0 mls/hr IV ONCE ONE PRN Reason: Wide Open Stop: 10/11/18 05:26 Last Admin: 10/11/18 05:13 Dose: 1,000 mls Propofol (Diprivan 10 Mg/Ml (Premix)) 100 mls @ 0 mls/hr IV CONT JACOB; Titrate PRN Reason: Protocol Stop: 04/09/19 05:59 Last Admin: 10/11/18 05:24 Dose: 100 mls Insulin Human Regular 100 unit / Miscellaneous Medication 1 ea/ Sodium Chloride 101 mls @ 0 mls/hr IV EDNOW ONE; Per Protocol PRN Reason: Protocol Stop: 10/11/18 05:58 Last Admin: 10/11/18 06:12 Dose: 101 mls Calcium Gluconate (Calcium Gluconate 1 Gm (Premix)) 50 mls @ 100 mls/hr IV EDNOW ONE Stop: 10/11/18 06:48 Last Admin: 10/11/18 07:06 Dose: 50 mls Sodium Chloride (Ns) 1,000 mls @ 1,000 mls/hr IV ONCE ONE Stop: 10/11/18 06:59 Last Admin: 10/11/18 06:15 Dose: 1,000 mls Insulin Human Regular 100 unit (/ Sodium Chloride) 101 mls @ 0 mls/hr IV AD JACOB ; Per Protocol PRN Reason: Protocol Stop: 04/09/19 05:59 Last Admin: 10/11/18 16:08 Dose: 101 mls Sodium Chloride (Ns) 1,000 mls @ 1,000 mls/hr IV ONCE ONE Stop: 10/11/18 08:59 Last Admin: 10/11/18 08:56 Dose: 1,000 mls Sodium Chloride (Ns) 500 mls @ 500 mls/hr IV ONCE ONE Stop: 10/11/18 09:59 Last Admin: 10/11/18 09:46 Dose: 500 mls Sodium Chloride (Ns) 500 mls @ 500 mls/hr IV ONCE ONE Stop: 10/11/18 10:59 Last Admin: 10/11/18 10:15 Dose: 500 mls Potassium Chloride (Potassium Cl 10 Meq (Premix)) 100 mls @ 100 mls/hr IV Q1H JACOB Stop: 10/11/18 23:29 Last Admin: 10/12/18 00:14 Dose: 100 mls Potassium Chloride (Potassium Cl 10 Meq (Premix)) 100 mls @ 100 mls/hr IV Q1H JACOB Stop: 10/12/18 05:59 Last Admin: 10/12/18 05:35 Dose: 100 mls Miscellaneous Information (Message To [facility]) 1 ea MISC ONCE ONE Stop: 10/11/18 06:01 Last Admin: 10/11/18 08:55 Dose: 1 ea Pantoprazole Sodium (Protonix) 40 mg IVP BID JACOB Stop: 04/09/19 08:59 Last Admin: 10/11/18 13:28 Dose: 40 mg Propofol (Diprivan) 40 mg IVP EDNOW ONE Stop: 10/11/18 05:26 Last Admin: 10/11/18 05:24 Dose: 40 mg Sodium Bicarbonate (Sodium Bicarbonate) 50 meq IVP ONCE ONE Stop: 10/11/18 06:40 Last Admin: 10/11/18 06:44 Dose: 50 meq Point of Care Test Results: Chemistry 10/11/18 10/11/18 05:16 05:13 POC Sodium 133 mEq/L L mEq/L (135-145) POC Potassium 6.5 mEq/L H* mEq/L (3.3-5.0) POC Chloride 104 mEq/L mEq/L (97-110) POC Total CO2 8 mEq/L L* mEq/L (22-31) POC BUN 55 mg/dL H mg/dL (7-23) POC Creatinine 2.0 mg/dL H mg/dL (0.7-1.3) POC Glucose > 700 mg/dL H* mg/dL (70-100) POC Troponin I 0.07 ng/mL ng/mL (0.00-0.08) Blood Gas/Lactic Acid-Arterial 10/11/18 06:13 Tidal Volume 490 ISTAT H&H 10/11/18 05:16 POC Hgb 13.6 gm/dL L gm/dL (13.7-17.5) POC Hct 40 % % (40-51) Departure - Departure Disposition: [facility] Inpatient Acute Clinical Impression: Unresponsive, Hyperglycemia Respiratory failure Qualifiers: Chronicity: acute Respiratory failure complication: hypoxia Qualified Code(s): J96.01 - Acute respiratory failure with hypoxia DKA (diabetic ketoacidoses) Qualifiers: Diabetes mellitus type: type 1 Diabetes mellitus complication detail: with coma Qualified Code(s): E10.11 - Type 1 diabetes mellitus with ketoacidosis with coma Condition: Critical
[2018-10-11 05:51] LABS: INR 1.17 (0.83-1.16); PROTIME(PATIENT) 15.1 SEC (12.0-15.0)
[2018-10-11] MEDS ORDERED: INSULIN REGULAR HUMAN 100 UNIT, COSIGN. REQUIRED 1 EA in NS 100 ML IV ONE (05:57)
[2018-10-11] MEDS ORDERED: PROPOFOL/EMULSION 100 ML IV SCH ×2 (06:00→07:00)
[2018-10-11] MEDS ORDERED: [UNRECOGNIZED DRUG - REMARK] MISC ONE (06:00)
[2018-10-11] MEDS ORDERED: D10W 1,000 ML IV SCH (06:00)
[2018-10-11] MEDS ORDERED: D50W 25 GM/50 ML SYR IVP PRN (06:00)
[2018-10-11] MEDS ORDERED: CALCIUM GLUCONATE 50 ML IV ONE (06:19)
[2018-10-11] MEDS ORDERED: ROCURONIUM 100 MG/10 ML VIAL ONE (06:25)
[2018-10-11] MEDS ORDERED: SODIUM BICARBONATE 50 MEQ/50 ML SYR IVP ONE (06:39)
[2018-10-11] MEDS ORDERED: SODIUM BICARBONATE 50 MEQ/50 ML SYR ONE ×2 (06:42→06:46)
[2018-10-11] MEDS ORDERED: CALCIUM GLUC 10% 1 GM/10 ML VIAL ONE (06:43)
[2018-10-11] MEDS ORDERED: ONDANSETRON DISINTEGRATING 4 MG TAB PO PRN (06:57)
[2018-10-11] MEDS ORDERED: ONDANSETRON 4 MG/2 ML VIAL IVP PRN (06:57)
[2018-10-11] MEDS ORDERED: ACETAMINOPHEN 325 MG TAB PO PRN (06:57)
[2018-10-11 07:15] LABS: CREATINE KINASE 600 IU/L (0-224)
[2018-10-11] MEDS: NS 1,000 ML IV SCH ×2 (07:56→18:20)
--- NOTE | 2018-10-11 08:27 | PDGENHP ---
History and Physical - Chief Complaint Unresponsive - History of Present Illness Source-history is limited as patient's has advanced dementia. Daughter and son-in-law arrived to bedside in the ED and supplement details. EMR was reviewed and case discussed with ED provider. HPI - this is an 82-year-old gentleman with a past medical history significant for type 1 diabetes, HTN, HLD and progressive memory deficits without formal diagnosis of dementia presents emergency department via EMS after he fell out of bed and was unresponsive. He was found between the bedside table and the bed on the floor. Patient lives with his at [facility] in apartment. They managed her own medications. reports that patient was in his usual state of health without any complaints yesterday but when asked specifics regarding what patient ate a which medications he took she reports that she could not recall. Patient's daughter and son-in-law see the patient every 2 weeks and saw them 2 days ago. They noted that patient appeared to be a little foggy in his thinking and was having a lot of difficulties with his vision. They are not aware if patient had been monitoring his blood sugars or taking his medications. They did not note any evidence of an acute illness besides what is mentioned above. Patient had no complaints of fevers, chills, chest pain, shortness of breath, dysuria polyuria nausea or vomiting. Patient generally utilizes a cane rarely a walker. reports that she lost soft patient is normal state health approximately 1030pm. History Information - Allergies/Home Medication List Allergies/Adverse Reactions: No Known Allergies Allergy (Unverified 10/11/18 05:16) Home Medications: Aspirin EC [Aspirin EC 81 mg (*)] 81 mg PO DAILY 12/22/15 [Last Taken 02/23/18] Atenolol [Tenormin 25 mg (*)] 25 mg PO DAILY 12/22/15 [Last Taken 02/23/18] Lisinopril [Zestril 40 mg (*)] 40 mg PO DAILY 12/22/15 [Last Taken 02/23/18] Simvastatin [Zocor] 20 mg PO DAILY 12/22/15 [Last Taken 02/23/18] Insulin Glargine [Lantus 100 UNITS/ML] 27 units SC DAILY 08/24/16 [Last Taken ] Alendronate Sodium [Fosamax 70 MG (*)] 70 mg PO Q7D 10/11/18 [Last Taken Unknown ] Cholecalciferol Vit D3 [Vitamin D3 (*)] 1,000 units PO DAILY 10/11/18 [Last Taken Unknown] Tamsulosin HCl [Flomax 0.4 MG (*)] 0.4 mg PO DAILY 10/11/18 [Last Taken Unknown] amLODIPine BESYLATE [Norvasc 5 mg (*)] 5 mg PO HS 10/11/18 [Last Taken Unknown] metFORMIN HCL [Glucophage 1000 mg] 1,000 mg PO BIDMEAL 10/11/18 [Last Taken Unknown] I have personally reviewed and updated: family history, medical history, social history, surgical history - Past Medical History diabetes type 2 (insulind), hypertension, hyperlipidemia Additional medical history: on insulin since young adulhood. Last A1c reported by [place] provider 02/2018 was 6.5. Denies prev AMI/CVA. HTN, HLD, CKD stage 2. - Surgical History Reports: appendectomy Additional surgical history: tonsillectomy. 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 Lives with his at [facility] in apartment. is independent in all ADLs and has requirement for a cane since his hip fracture February 2018. Code status per family is full. Review of Systems Review of Systems: ROS: 10pt was reviewed & negative except for what was stated in HPI & below ( Unable to obtain due to patient being intubated unresponsive. See HPI for family report.) Physical Exam Physical Exam: Selected Entries 10/11/18 05:17 Blood Pressure Automatic Method Heart Rate 78 Respiratory 30 H Rate O2 Sat (%) 99 Blood Pressure 117/42 L Mean Arterial 67 Pressure (MAP) O2 (L/minute) 15 O2 Delivery Non-Rebreather Mode Mask Temp Pulse Resp BP Pulse Ox 36.6 C 45 L 20 105/23 L 100 10/11/18 07:20 10/11/18 07:45 10/11/18 07:45 10/11/18 07:45 10/11/18 07:45 FIO2 (%) 80 Constitutional: no apparent distress, chronically ill appearing, other (NAD. Patient is sedated and intubated. Frail elderly gentleman. Pale a. .) Eyes: PERRL (Pupils equal small and round but with decreased reactivity light bilaterally.), anicteric sclera Ears, Nose, Mouth, Throat: dry mucous membranes, other (Anticipated.) Cardiovascular: regular rate and rhythym (Occasional irregular beat.), no murmur , rub, or gallop (Limited exam due to diminished heart sounds.), pulses symmetric bilaterally, edema (Right leg with 2+ pitting edema compared to the left with 1+.), other Peripheral Pulses: 1+: femoral (L), dorsalis-pedis (R) Respiratory: no respiratory distress, no rales or rhonchi, clear to auscultation , No inspiratory crackles Gastrointestinal: soft, non-tender abdomen, other (Hypoactive bowel sounds.), No distension Genitourinary: moreau in urethra (Yellow clear urine.) Skin: warm, other (Pallor. Patient with abrasions to the left shoulder. He has small contusion over the left buttock and erythema to the lower buttock. Left great toe nail the is listed with dried blood. Toenails are hypertrophic. Patient with a mild contusion on the left eyelid), No pressure ulcer Neurologic: other (Intubated. Sedated. Unresponsive.) Psychiatric: other (Intubated sedated.) Lab Data & Imaging Review 10/11/18 05:13 10/11/18 05:13 WBC 12.84 10^3/uL (3.80-9.50) H 10/11/18 05:13 RBC 4.13 10^6/uL (4.40-6.38) L 10/11/18 05:13 Hgb 12.4 g/dL (13.7-17.5) L 10/11/18 05:13 POC Hgb 13.6 gm/dL (13.7-17.5) L 10/11/18 05:16 Hct 42.2 % (40.0-51.0) 10/11/18 05:13 POC Hct 40 % (40-51) 10/11/18 05:16 MCV 102.2 fL (81.5-99.8) H 10/11/18 05:13 MCH 30.0 pg (27.9-34.1) 10/11/18 05:13 MCHC 29.4 g/dL (32.4-36.7) L 10/11/18 05:13 RDW 13.9 % (11.5-15.2) 10/11/18 05:13 Plt Count 261 10^3/uL (150-400) 10/11/18 05:13 MPV 12.0 fL (8.7-11.7) H 10/11/18 05:13 Neut % (Auto) 79.6 % (39.3-74.2) H 10/11/18 05:13 Lymph % (Auto) 11.4 % (15.0-45.0) L 10/11/18 05:13 Braxton % (Auto) 7.9 % (4.5-13.0) 10/11/18 05:13 Eos % (Auto) 0.1 % (0.6-7.6) L 10/11/18 05:13 Baso % (Auto) 0.2 % (0.3-1.7) L 10/11/18 05:13 Nucleat RBC Rel Count 0.0 % (0.0-0.2) 10/11/18 05:13 Absolute Neuts (auto) 10.23 10^3/uL (1.70-6.50) H 10/11/18 05:13 Absolute Lymphs (auto) 1.46 10^3/uL (1.00-3.00) 10/11/18 05:13 Absolute Monos (auto) 1.01 10^3/uL (0.30-0.80) H 10/11/18 05:13 Absolute Eos (auto) 0.01 10^3/uL (0.03-0.40) L 10/11/18 05:13 Absolute Basos (auto) 0.03 10^3/uL (0.02-0.10) 10/11/18 05:13 Absolute Nucleated RBC 0.00 10^3/uL (0-0.01) 10/11/18 05:13 Immature Gran % 0.8 % (0.0-1.1) 10/11/18 05:13 Immature Gran # 0.10 10^3/uL (0.00-0.10) 10/11/18 05:13 PT 15.1 SEC (12.0-15.0) H 10/11/18 05:13 INR 1.17 (0.83-1.16) H 10/11/18 05:13 APTT 30.4 SEC (23.0-38.0) 10/11/18 05:13 Puncture Site VENOUS 10/11/18 07:50 Patient Temperature 37.0 DEGREES 10/11/18 07:50 pCO2 14 mmHg (34-38) L* 10/11/18 06:13 pO2 80 mmHg (65-75) H 10/11/18 06:13 Total CO2 4 mEq/L (23-27) L* 10/11/18 06:13 ABG pH 6.99 (7.35-7.45) L* 10/11/18 06:13 ABG PO2/FiO2 Ratio 80 RATIO 10/11/18 06:13 ABG HCO3 3 mEq/L (22-26) L 10/11/18 06:13 ABG O2 Saturation 85 % (92-95) L 10/11/18 06:13 ABG Base Excess -26.6 mEq/L (-2.5-2.5) L 10/11/18 06:13 VBG pH 7.02 (7.31-7.42) L 10/11/18 07:50 VBG HCO3 6 mEQ/L (22-26) L 10/11/18 07:50 VBG Total CO2 7 mEq/L (21-27) L 10/11/18 07:50 VBG O2 Saturation 85 % (65-75) H 10/11/18 07:50 VBG Base Excess -24.1 mEq/L (-2.5-2.5) L 10/11/18 07:50 Mixed VBG pCO2 25 mmHg (40-44) L 10/11/18 07:50 Mixed VBG pO2 74 mmHG (35-40) H 10/11/18 07:50 O2 Concentration % 100 % (0-100) 10/11/18 06:13 Respiration Rate 31 10/11/18 06:13 Set Respiration Rate 14 10/11/18 06:13 Assist Control YES 10/11/18 06:13 Tidal Volume 490 10/11/18 06:13 PEEP 5 10/11/18 06:13 POC Sodium 133 mEq/L (135-145) L 10/11/18 05:16 Sodium 134 mEq/L (135-145) L 10/11/18 05:13 POC Potassium 6.5 mEq/L (3.3-5.0) H* 10/11/18 05:16 Potassium 6.8 mEq/L (3.5-5.2) H* 10/11/18 05:13 POC Chloride 104 mEq/L (97-110) 10/11/18 05:16 Chloride 100 mEq/L (97-110) 10/11/18 05:13 Carbon Dioxide < 5 mEq/l (22-31) L* 10/11/18 05:13 POC Total CO2 8 mEq/L (22-31) L* 10/11/18 05:16 Anion Gap TNP 10/11/18 05:13 POC BUN 55 mg/dL (7-23) H 10/11/18 05:16 BUN 56 mg/dL (7-23) H 10/11/18 05:13 Creatinine 2.1 mg/dL (0.7-1.3) H 10/11/18 05:13 POC Creatinine 2.0 mg/dL (0.7-1.3) H 10/11/18 05:16 Estimated GFR 31 10/11/18 05:13 Glucose 1132 mg/dL (70-100) H* 10/11/18 05:13 POC Glucose > 700 mg/dL (70-100) H* 10/11/18 05:16 Calcium 9.4 mg/dL (8.5-10.4) 10/11/18 05:13 Phosphorus Cancelled 10/11/18 05:13 Magnesium 2.6 mg/dL (1.6-2.3) H 10/11/18 05:13 Total Bilirubin 0.6 mg/dL (0.1-1.4) 10/11/18 05:13 Conjugated Bilirubin 0.6 mg/dL (0.0-0.5) H 10/11/18 05:13 Unconjugated Bilirubin 0.0 mg/dL (0.0-1.1) 10/11/18 05:13 AST 33 IU/L (17-59) 10/11/18 05:13 ALT 47 IU/L (21-72) 10/11/18 05:13 Alkaline Phosphatase 127 IU/L (38-126) H 10/11/18 05:13 Creatine Kinase 600 IU/L (0-224) H 10/11/18 05:15 CK-MB (CK-2) Fraction 7.86 ng/mL (0.00-4.55) H 10/11/18 05:15 CK-MB (CK-2) % 1.3 % (0.0-4.0) 10/11/18 05:15 Creatine Kinase Interp NEGATIVE (NEGATIVE) 10/11/18 05:15 POC Troponin I 0.07 ng/mL (0.00-0.08) 10/11/18 05:13 Troponin I 0.068 ng/mL (0.000-0.034) H 10/11/18 05:13 NT-Pro-B Natriuret Pep 8790 pg/mL (0-450) H 10/11/18 05:13 Total Protein 5.6 g/dL (6.3-8.2) L 10/11/18 05:13 Albumin 3.9 g/dL (3.5-5.0) 10/11/18 05:13 Lipase 10 IU/L (23-300) L 10/11/18 05:13 Beta-Hydroxybutyrate 10.80 mmol/L (0.02-0.27) H 10/11/18 05:13 Urine Color YELLOW 10/11/18 06:10 Urine Appearance CLEAR 10/11/18 06:10 Urine pH 5.0 (5.0-7.5) 10/11/18 06:10 Ur Specific [place] 1.021 (1.002-1.030) 10/11/18 06:10 Urine Protein NEGATIVE (NEGATIVE) 10/11/18 06:10 Urine Ketones 1+ (NEGATIVE) H 10/11/18 06:10 Urine Blood NEGATIVE (NEGATIVE) 10/11/18 06:10 Urine Nitrate NEGATIVE (NEGATIVE) 10/11/18 06:10 Urine Bilirubin NEGATIVE (NEGATIVE) 10/11/18 06:10 Urine Urobilinogen NEGATIVE EU (0.2-1.0) 10/11/18 06:10 Ur Leukocyte Esterase NEGATIVE (NEGATIVE) 10/11/18 06:10 Urine RBC 1-3 /hpf (0-3) 10/11/18 06:10 Urine WBC 1-3 /hpf (0-3) 10/11/18 06:10 Ur Epithelial Cells NONE SEEN /lpf (NONE-1+) 10/11/18 06:10 Urine Glucose 3+ (NEGATIVE) H 10/11/18 06:10 Urine Opiates Screen NEGATIVE (NEGATIVE) 10/11/18 06:10 Urine Barbiturates NEGATIVE (NEGATIVE) 10/11/18 06:10 Ur Phencyclidine Scrn NEGATIVE (NEGATIVE) 10/11/18 06:10 Ur Amphetamine Screen NEGATIVE (NEGATIVE) 10/11/18 06:10 U Benzodiazepines Scrn NEGATIVE (NEGATIVE) 10/11/18 06:10 Urine Cocaine Screen NEGATIVE (NEGATIVE) 10/11/18 06:10 U Marijuana (THC) Screen NEGATIVE (NEGATIVE) 10/11/18 06:10 Ethyl Alcohol < 10 mg/dL (0-10) 10/11/18 05:13 Imaging Review: CT head, CT cervical spine - no acute findings noted. Some chronic vascular changes on CT head. Final report pending. Chest x-ray reviewed myself-no acute consolidations or infiltrates. No effusions. Visualized and Interpreted EKG results: Yes EKG additional interpertation: Atrial fibrillation rate in the 70s. QTC is 474. Prominent T-waves in multiple leads. No acute ST changes. Patient with incomplete right bundle branch block. Assessment & Plan Assessment: A 82-year-old gentleman with past medical history significant for diabetes type 1, HTN, HLD who presents emergency department from his [facility] unresponsive. #DKA (diabetic ketoacidoses) (Acute) -with coma - Patient presenting with BS of #Respiratory failure (Acute) - patient is intubated. Critical care consultation. #Hyperkalemia - improving with IV fluids and insulin drip. Patient's EKG with some prominent T-wave in multiple leads. Continue monitor. Calcium gluconate given. Bicarb given for severe acidosis. Serial BMPs per per DKA protocol. #Acute renal failure - likely pre renal. Patient's blood pressures are adequate. Continue with IV fluids. #Hyponatremia - corrects for glucose. Continue with IV fluids and repeat a BMP #Atrial fibrillation - patient without previous history of atrial fibrillation. Rate is controlled 70s to 80s. Continue to monitor. Echocardiogram. #Elevated CK - patient with a fall at home. IV fluids. Repeat in the morning monitor for development of rhabdomyolysis in setting of acute renal failure.. #Elevated BNP - check echo with new onset afib. no known history of chf. no evidence of volume overload. #abnormal NGT output - check gastroccult. monitor hh. protonix. # fall out of bed - CT head, CT neck chest x-ray unremarkable. Patient did appear to grimace when he was rolled on his side for exam of his back. Consider additional imaging of the pelvis if patient continues to demonstrate discomfort with movement. He does not have any external rotation or hip flexion on exam. chronic medical problems #Mild dementia - daughter reports patient with progressive memory deficits and progressive since his hospitalization in February for hip fracture and repair. Patient #resides at [facility] level of assistance is unclear at this time as patient's also has advanced dementia. CM consult. #Benign essential hypertension - blood pressures low normal. Hold off on anti hypertensives at this time. Continue with IV fluid support. #Hyperlipidemia - resume statin when patient is tolerating p.o. FEN - IVF. electrolyte monitoring and treatment as above. NPO. NGT to LIS. PPX - SCDs. checking gastroccult. monitor hh. holding anticoagulation for now. COR - FULL per family. Dispo - Patient admitted to inpatient status in ICU. Patient is critically ill on ventilator. Anticipate > 2 midnight stay. 40 min of critical care time.
[2018-10-11] MEDS ORDERED: PROTOCOL POTASSIUM 1 DOSE MISC PRN (08:29)
[2018-10-11] MEDS ORDERED: PANTOPRAZOLE SODIUM 40 MG VIAL IVP SCH (09:00)
[2018-10-11] MEDS ORDERED: NS 500 ML IV ONE ×2 (09:00→10:00)
--- NOTE | 2018-10-11 09:41 | ECHO ---
[email or web address] [address] [address] Main: [phone] Fax: Transthoracic Echocardiogram Name: FREDRICK RAMOS MR#: [id number] Study Date: 10/11/2018 Study Time: 08:45 AM Date of : 1935 Age: 82 year(s) Height: ( ) Weight: 88 kg (194 lb.) BSA: Gender: Male Examination: Echo Indication: atrial fibrillation, acute respiratory failure, elevated bnp Image Quality: Adequate Contrast: Requested by: Elly Grant BP: 109 mmHg/31 mmHg Heart Rate: Rhythm: Indication: atrial fibrillation, acute respiratory failure, elevated bnp Procedure Staff Car Pilot: Karine Patel [facility] Reading Physician: Abdullahi Sloan MD Requesting Provider: Conclusions: Normal size left ventricle. Normal global systolic LV function. EF is 63 %. Normal RV function. The left atrium is normal in size. The right atrium is normal in size. Severe mitral annular calcification. There is mild thickening of the mitral valve leaflets. No mitral stenosis is present. Trivial mitral valve regurgitation. Moderate aortic cusp calcification is present. Mild aortic valve regurgitation is present. Mild calcific aortic valve stenosis. Dimensionless Index 0.34. Moderate tricuspid regurgitation is present. The pulmonary artery pressure is mildly increased. Right ventricular systolic pressure measures 35mmHg. Trivial pericardial effusion. No echocardiographic evidence of hemodynamic compromise. Measurements: Chambers Valvular Assessment AV/MV Valvular Assessment TV/PV Normal Normal Normal Name Value Range Name Value Range Name Value Range IVSd (2D): 1.1 cm (0.6 cm-1.1 AV Vmax: 2.30 m/s (1 m/s-1.7 TR Vmax: 2.74 mm/s ( - ) cm) m/s) TR PGmax: 30 mmHg ( - ) LVDd (2D): 4.7 cm (4.2 cm-5.9 AV maxP mmHg ( - ) syst. PAP: 35 mmHg ( - ) cm) AV meanP mmHg ( - ) PAPI (VTI): 1.1 cm ( - ) Patient: FREDRICK RAMOS Study Date: 10/11/2018 Page 1 of 2 08:45 AM LVDs (2D): 3.1 cm (2.1 cm-4 MV E Vmax: 1.18 m/s ( - ) cm) MV A Vmax: 0.46 m/s ( - ) LVPWd (2D): 1.0 cm (0.6 cm-1 MV E/A: 2.57 ( - ) cm) MV PHT: 0.057 s ( - ) LVOTd 2.0 cm 2.0 cm mm MVA (PHT): 3.9 s ( - ) LVEF (2D): 63 (>=54 %) Continued Measurements: Chambers Valvular Assessment AV/MV Valvular Assessment TV/PV Name Value Name Value Name Value LADs: 3.3 cm MV DecTime: 197 m/s CVP (est.): 5 mmHg LADs Lon.6 cm MV E/E' Lateral: 11.20 LA Area: 19.3 cm2 LA Volume: 52 ml Findings: Left Ventricle: Normal size left ventricle. No LV hypertrophy. Normal global systolic LV function. EF is 63 %. No regional wall motion abnormality. Normal diastolic LV function. Right Ventricle: Normal size right ventricle. Normal RV function. Left Atrium: The left atrium is normal in size. Right Atrium: The right atrium is normal in size. Mitral Valve: Severe mitral annular calcification. There is mild thickening of the mitral valve leaflets. No mitral stenosis is present. Trivial mitral valve regurgitation. Aortic Valve: Aortic valve is not well visualized. Moderate aortic cusp calcification is present. Mild aortic valve regurgitation is present. Mild calcific aortic valve stenosis. Dimensionless Index 0.34. Tricuspid Valve: The tricuspid valve is normal in appearance and function. Moderate tricuspid regurgitation is present. The pulmonary artery pressure is mildly increased. Right ventricular systolic pressure measures 35mmHg. Pulmonic Valve: The pulmonic valve is normal in appearance and function. Aorta: The aorta is normal. Pericardium: Trivial pericardial effusion. No echocardiographic evidence of hemodynamic compromise. (No Signature Object) Patient: FREDRICK RAMOS Study Date: 10/11/2018 Page 2 of 2 08:45 AM [id number]
--- NOTE | 2018-10-11 10:05 | PDMN ---
Medical Necessity Medical necessity: Pt meets inpt criteria per MD order and MCG M-130, Diabetes. 82 y/o w/hx DM 1 presented to ED via EMS after falling OOB and found unresponsive at [facility] where he lives. Pt admitted w/DKA w/coma ( presenting w/BS of 1132), acute resp failure requiring intubation, ARF hyperkalemia (K 6.5), hyponatremia (Na 133), and afib. ICU, anticipate>2MN for ongoing care of critically ill pt on vent.
[2018-10-11] MEDS ORDERED: IOHEXOL 350mgI/ML (OMNIPAQUE) 150 ML BTL IV ONE (10:07)
--- NOTE | 2018-10-11 10:59 | GCON ---
[f rep st] CONSULTATION DATE OF CONSULTATION: 10/11/2018 CHIEF COMPLAINT: Stroke alert. HISTORY OF PRESENT ILLNESS: I am responding to an acute inpatient stroke alert in the ICU on the patient who is 82 years old. He comes in with a fairly complex history. He was brought in this morning by his who has advanced dementia and very little collateral history could be given. Essentially, he was brought in a coma state without any other history due to his 's memory impairment. On initial emergent evaluation, the patient was found to be in diabetic ketoacidosis. The patient is a known diabetic. He was found to have a blood glucose of over 1000 with a Marck Coma Scale of 3. In addition, he has some elevated creatine kinase and CK-MB, which may have been from the position and immobility he was found in. He was apparently found wedged between his bed and a dresser, with his right arm down. Not clear. He has multiple electrolyte disturbances, atrial fibrillation, and while on propofol developed a heart block and will need external pacing. Among all of these acute emergent issues, when propofol fall was lessened, it was noted that his right arm was not moving compared to the other three extremities; therefore, acute stroke alert was called. I saw the patient at bedside immediately and his was unable to tell me if he has any baseline right arm problems. Otherwise, his exam was not specific, outside of decreased motor activity in the right upper extremity. Family consensus was that the last known normal was at 10:00 p.m. Last night. It is unknown whether the right arm had decreased movement prior to the propofol dose being decreased. We discussed that diabetic ketoacidosis can present with focal neurologic deficits and we discussed the risks, benefits, and alternatives of tPA, including intracranial hemorrhage with associated morbidity and mortality. The patient and family prefer to not pursue IV tPA due to the risks and the overall complex medical situation. Indeed, based on his last known normal being 12 hr from time of acute stroke alert, IV tPA would be contraindicated. We will obtain stat CT of the head and neck to look for any large vessel occlusion that could be intervened upon without systemic thrombolysis. They are agreeable to this recommendation and treatment. PHYSICAL EXAM: VITAL SIGNS: Blood pressure is 113/34, heart rate 50, respiration 20. NEUROLOGIC: Higher mental state, he has withdrawal to deep bed stimulus and some spontaneous movement in his left upper and both lower extremities. Right upper extremity has no movement spontaneously or to deep nailbed stimulation. No overt convulsive activity. IMPRESSION/PLAN: 1. Right arm weakness. 2. Diabetic ketoacidosis. 3. Cardiac dysrhythmia. It is unclear what the etiology of the patient's arm weakness is. He certainly may have had this during the entire presentation, but it was not noted due to his comatose state. The patient's last known normal was 10:00 p.m., approximately 12 hr prior to stroke alert. IV tPA would be contraindicated. His creatinine kinase is elevated suggesting he could have had musculoskeletal injury in this region causing lack of mobility. As noted above, risks, benefits , and alternatives of intravenous tPA was discussed and declined by family due to the possibility of this being a focal neurologic symptom from diabetic ketoacidosis and risk of hemorrhage. We will obtain stat CT-A head and neck to exclude any large vessel occlusion and follow up with those results and with the patient and family later this morning. We will follow along closely. Over 60 minutes critical care time attending to acute stroke alert. Addendum: I spoke to radiology CTA head and neck is negative for large vessel occlusion. I discussed the elevated CK and the possibility of impending compartment syndrome in the right upper extremity with the ICU team. They will follow his clinical exam and creatine kinase to see what direction it is going in. There is no large vessel occlusion to indicate percutaneous stroke intervention now. He is not a candidate for IV tPA as noted above. We will continue to follow closely as needed. Once he is stabilized from a cardiac and endocrine standpoint, MRI brain without contrast could be considered. If there are any abnormalities, please contact Neurology service for review. /[id number]/MODL MTDD
[2018-10-11] MEDS ORDERED: NS 1,000 ML IV SCH (11:00)
[2018-10-11] MEDS: CHLORHEXIDINE GLUCONATE 15 ML UDL PO SCH ×2 (11:42→21:51)
[2018-10-11] MEDS: FAMOTIDINE 20 MG/NACL 50 ML IV SCH ×2 (11:43→21:48)
--- NOTE | 2018-10-11 11:46 | ASMTCMCOM ---
CM Note CM Note Notes: Patient found down by in their residence. He was unresponsive on arrival to ED, also found to be in diabetic ketoacidosis. He has intubated emergently and hours later an in-house stroke alert was called. Patient lives with his Lashell at [facility]. She has advanced dementia; however, the couple apparently manages their own medications. They have three local children, and daughter Ivett is MDPOA. Patient was at [facility] in February following a hip fracture, and his children report that he seems to have been declining since. Case Management will follow. Date Signed: 10/11/2018 11:45 AM Electronically Signed By:Shivani Ames RN
[2018-10-11] MEDS ORDERED: LIDOCAINE 1% 300 MG/30 ML SDV ONE (11:52)
--- NOTE | 2018-10-11 12:04 | PDPROPOC ---
Sedation Plan of Care Sedation Plan of Care: vital signs stable, mental status noted, patient educated of risks, benefits, alternatives, patient can tolerate sedation (The patient is currently intubated) Mallampati Reference Image:
--- NOTE | 2018-10-11 12:09 | PDPROPOC ---
Sedation Plan of Care Sedation Plan of Care: vital signs stable, mental status noted, patient educated of risks, benefits, alternatives, patient can tolerate sedation ASA Classification: ASA 4 Planned drugs: fentanyl, midazolam Mallampati Score: Class 3 Mallampati Reference Image: Patient passed 3-3-2 rule?: Yes
--- NOTE | 2018-10-11 12:11 | PDHPUP ---
History & Physical Update H&P update statement: This history and physical update is based on an assessment of the patient which was completed after admission or registration (within 24 hours), but prior to the surgery/procedure. H&P update: H&P reviewed & patient examined, no change in patient's condition since H&P completed
--- NOTE | 2018-10-11 12:41 | POSTOPPROG ---
Post Op Note Date of Operation: 10/11/18 Surgeon: Lee Park Pre-op Diagnosis: COMPLETE HEART BLOCK Post-op Diagnosis: S/P TEMP WIRE PLACEMENT Indication: COMPLETE HEART BLOCK Procedure: TEMPORARY PACING WIRE RIGHT IJ APPROACH Findings: UNCOMPLICATED TEMP WIRE PLACEMENT... Inf/Abcess present in the surg proc area at time of surgery?: No EBL: Minimal Complications: NONE
--- NOTE | 2018-10-11 12:49 | CPEKG ---
Test Reason : OPEN Blood Pressure : / mmHG Vent. Rate : 053 BPM Atrial Rate : 000 BPM P-R Int : 152 ms QRS Dur : 111 ms QT Int : 546 ms P-R-T Axes : 000 -36 023 degrees QTc Int : 513 ms Atrial fibrillation Ventricular premature complex Left axis deviation Borderline ST depression, anterolateral leads Prolonged QT interval Confirmed by Angel Yang ([id number]) on 10/11/2018 12:49:16 PM Referred By: Elly Grant Confirmed By:Angel Yang
--- NOTE | 2018-10-11 13:37 | HOSPPROG ---
Hospitalist Progress Note Assessment/Plan: 82yo M with h/o IDDM, CKD stage 2 found unresponsive at home. In DKA, intubated in ED for GCS of 3. 1. DKA: Unclear precipitant. - Following protocol. Anion gap close, BG still elevated. - Monitor and replete electrolytes PRN 2. Fever: Per family, no infectious s/s prior to event. - Blood and sputum cultures. UA unremarkable - Start renally dosed zosyn 3. Rhabdomyolysis: CK rising - IVF as tolerates 4. KYLE: Dehydrated d/t elevated BG - Improving with fluids 5. Acute respiratory failure: Not protecting airway due to mental status. - Lung protective ventilation per servicer 6. Acute metabolic encephalopathy: D/t severe acidemia. - Sedated on vent 7. Hyperkalemia: Multifactorial - Mgmt of renal failure, dka as above 8. Right arm weakness: Stroke alert called AM 10/11 - Noncon CT head, CTA head/neck without etiology - Neurology consulted, brain MRI ordered 9. Complete heart block: - s/p temporary pacer wire by cardiology - Will likely need permanent device once dka/infection under control 10. Atrial fibrillation: Noted on admit, new diagnosis. - TTE grossly unremarkable valves, chamber size 11. Mild dementia: He is not in memory unit per family (contrary to prior notes) . 12. HTN: BP actually a bit up now - Restart home amlodipine, hold atenolol and lisinopril VTE ppx: LMWH GI ppx: H2RA Code: full Dispo: Remain inpatient. I spent a total of 40 minutes of critical care time involving this patient. Subjective: Sedated on ventilator. Underwent temporary pacer wire placement for CHB. Now fevering. Objective: Vital Signs Temp Pulse Resp BP Pulse Ox 38.3 C 68 26 H 128/59 H 100 10/11/18 13:00 10/11/18 13:00 10/11/18 13:00 10/11/18 13:00 10/11/18 13:00 10/10/18 10/11/18 10/12/18 05:59 05:59 05:59 Intake Total 3000 Balance 3000 PT 15.1 SEC (12.0-15.0) H 10/11/18 05:13 INR 1.17 (0.83-1.16) H 10/11/18 05:13 ICD10 Worksheet Patient Problems: Problems Problem Status Onset DKA (diabetic ketoacidoses) Acute Hyperglycemia Acute Respiratory failure Acute Unresponsive Acute Closed comminuted intertrochanteric fracture of femur Acute
[2018-10-11 13:55] LABS: CREATINE KINASE 1237 IU/L (0-224)
--- NOTE | 2018-10-11 14:05 | NEUROPROG ---
Assessment: Addendum to consultation: The patient had temporary pacer placed. He is now stable from a cardiac standpoint. We will go ahead and order MRI brain without contrast to exclude cerebral infarction as a cause of his right arm weakness. His CK is trending up which may suggest right upper extremity rhabdomyolysis from immobility related to his DKA coma. MRI order placed. Objective: Vital Signs Temp Pulse Resp BP Pulse Ox 38.3 C 68 26 H 128/59 H 100 10/11/18 13:00 10/11/18 13:00 10/11/18 13:00 10/11/18 13:00 10/11/18 13:00 Laboratory Results 10/11/18 13:00 10/10/18 10/11/18 10/12/18 05:59 05:59 05:59 Intake Total 3000 Balance 3000 PT 15.1 SEC (12.0-15.0) H 10/11/18 05:13 INR 1.17 (0.83-1.16) H 10/11/18 05:13 Allergies/Adverse Reactions: No Known Allergies Allergy (Unverified 10/11/18 05:16)
[2018-10-11] MEDS: INSULIN REGULAR HUMAN 100 UNIT in NS 100 ML IV SCH ×2 (15:21→16:08)
[2018-10-11] MEDS ORDERED: ENOXAPARIN 40 MG/0.4 ML SYR SC SCH ×2 (16:30→16:45)
--- NOTE | 2018-10-11 17:25 | GCON ---
[f rep st] CONSULTATION CRITICAL CARE CONSULT. DATE OF CONSULTATION: 10/11/2018 HISTORY OF PRESENT ILLNESS: This patient is an 82-year-old male who was apparently found down at dung e next to his bed of unclear causes. He was unresponsive on the scene, was brought in by ambulance t o the emergency department where he was reported to have a GCS score of only 3. His blood sugar was greater than 700, at that time. It now was found to be greater than 1000. In any case, he was intub ated for airway protection, started on IV fluids and brought to the floor. Review of his telemetry s trips, however, an EKG showed complete heart block. He was evaluated by Cardiology nearly immediatel y and temporary pacer wires were placed. He was also placed on dopamine. was relatively stable on arrival into the ICU with an oxygen saturation of 100%. His review of systems otherwise ne gative. Discussing the situation with his , who apparently has underlying dementia, she reported no problems and was unable to tell us what precipitated the event. PAST MEDICAL HISTORY: Includes 1. Diabetes. 2. Hypertension. 3. Anemia. 4. Unstable gait. PAST SURGICAL HISTORY: Includes hip surgery in the past. SOCIAL HISTORY: He is a nonsmoker. No alcohol or IV drug use. FAMILY HISTORY: Noncontributory. MEDICATIONS: At this time include dopamine, Pepcid, insulin, Zofran, and normal saline. PHYSICAL EXAM: VITAL SIGNS: At the time of my evaluation, blood pressure is 105/23, with a heart ra te in the mid 40s, respirations 20, oxygen saturation 100% on a ventilator. GENERAL: He was lightly sedated on my initial evaluation. A subsequent evaluation about an hour later, he was more alert an d was able to follow minimal commands, but not very well. He was on a ventilator. No apparent distr ess. HEENT: His pupils were equally round and reactive to light. Nonicteric and noninjected. Muco us membranes appeared to be moist without erythema or exudate. NECK: Supple. Breath sounds clear t o auscultation bilaterally. Without wheeze or rales. HEART: Regular rate and rhythm. Without obvi ous murmur. ABDOMEN: Soft, nontender, nondistended without hepatosplenomegaly. EXTREMITIES: No cl ubbing, cyanosis, or edema, but his right arm was quite flaccid. The left arm withdrew to pain, as d id both his lower extremities. OBJECTIVE DATA: White count of 12.8, hematocrit 42, platelets 261. Initial venous blood gases showe d a pH that was quite low at 6.99. This slowly improved to 7.35. His sodium was at a low of 134, wh ich it is now, with potassium 3.9, chloride 110, bicarb 15, it was much lower previously. BUN 56, cr eatinine 1.7, glucose originally 1000, now about 600. Creatine kinase 600, now 1237, troponin 0.68, followed by 0.76. UA was consistent with ketoacidosis. Toxicology screen negative. Head CT was unremarkable, as was a chest x-ray. ASSESSMENT/PLAN: 1. Acute neurologic findings. A stroke alert was called. He was seen immediately with Dr. Bonilla. A CT head and angio repeated showed no evidence of stroke, but the duration was uncertain, so we though t he was not a good tPA candidate. Dr. Bonilla also said that he believed the arm weakness may have been related to his fall and some rhabdomyolysis. In any case, close neurologic followup will certainly be warranted at this time. 2. Diabetic ketoacidosis with severe hyperglycemia. This is now improving with IV fluids, as well a s aggressive insulin replacement. 3. Acute respiratory failure with hypoxemia. He is on a ventilator now, but he should be able to ex tubate fairly quickly. I would probably leave him on the vent today. Continue to titrate his FiO2. 4. Acute kidney injury related to diabetic ketoacidosis, which is already improving with adequate ur ine output. 5. Mild rhabdomyolysis. He is getting aggressive IV fluids. His CK is only 1200 at the moment. Wi ll follow this closely moving forward. 6. Complete heart block. The patient was seen by Cardiology. Temporary pacemaker wires have been p laced. This may have been the precipitating event. He may likely need a permanent pacer and we will see how that plays out over the next couple of days. A total of about 75 minutes of critical care time was required for this patient. /[id number]/MODL
[2018-10-11] MEDS: PIPERACILLIN/TAZO 2.25 GM/DEX 50 ML IV SCH (18:19)
[2018-10-11] MEDS ORDERED: ENOXAPARIN 60 MG/0.6 ML SYR SC ONE (18:30)
[2018-10-11] MEDS: POTASSIUM Cl (KCl) 100 ML IV SCH ×2 (20:26→21:47)
[2018-10-11] MEDS: amLODIPine BESYLATE 5 MG TAB PO SCH (21:51)
[2018-10-11] MEDS ORDERED: D5W 1,000 ML IV SCH (23:15)
[2018-10-11] MEDS ORDERED: INSULIN REGULAR HUMAN 100 UNIT in NS 100 ML IV SCH (23:30)
[2018-10-12] MEDS: POTASSIUM Cl (KCl) 100 ML IV SCH ×6 (00:14→17:38)
[2018-10-12] MEDS: PIPERACILLIN/TAZO 2.25 GM/DEX 50 ML IV SCH ×4 (00:15→17:38)
[2018-10-12] MEDS: hydrALAZINE 20 MG/ML VIAL IVP PRN ×3 (06:51→21:39)
[2018-10-12] MEDS ORDERED: INSULIN REGULAR HUMAN 100 UNIT in NS 100 ML IV SCH (08:16)
--- NOTE | 2018-10-12 08:16 | CPEKG ---
Test Reason : OPEN Blood Pressure : / mmHG Vent. Rate : 069 BPM Atrial Rate : 000 BPM P-R Int : 140 ms QRS Dur : 118 ms QT Int : 442 ms P-R-T Axes : 000 -35 021 degrees QTc Int : 474 ms Atrial fibrillation Incomplete right bundle branch block Confirmed by Francis Love ([id number]) on 10/12/2018 8:15:53 AM Referred By: Francis Love Confirmed By:Francis Love
[2018-10-12 08:44] LABS: CREATINE KINASE 2455 IU/L (0-224)
--- NOTE | 2018-10-12 09:20 | NEUROPROG ---
Assessment: 1. Right arm weakness 2. Diabetic ketoacidosis MRI brain pending. Fortunately, his right arm is now moving spontaneously and with command today. Is unclear if there is asymmetry at this point due to his mental status between the left and right arm. I recommend we proceed with MRI brain to exclude cerebral infarct as a cause of the right arm weakness so we can understand and explained prognosis better to the patient and family. He is still encephalopathic from the DKA. Once MRI is complete, we will review and make further recommendations accordingly. I also recommend continue close surveillance of the right arm for an development of rhabdomyolysis/compartment syndrome. I have discussed this with the nurse. 35 total minutes floor time; over 50% counseling and coordination of care. Subjective: Right arm is improving Objective: Vital Signs Temp Pulse Resp BP Pulse Ox 38.0 C 78 26 H 148/65 H 95 10/12/18 09:00 10/12/18 09:00 10/12/18 09:00 10/12/18 09:00 10/12/18 09:00 Microbiology 10/11/18 14:30 - Final Sputum, Induced/Suctioned Laboratory Results 10/12/18 05:30 10/12/18 05:30 10/11/18 10/12/18 10/13/18 05:59 05:59 05:59 Intake Total 8850 Output Total 1860 Balance 6990 PT 15.1 SEC (12.0-15.0) H 10/11/18 05:13 INR 1.17 (0.83-1.16) H 10/11/18 05:13 Patient is confused but awake He does not follow commands consistently/minimally He now has return of spontaneous movement in the right arm and some very minimal ability to follow commands with right arm. He tracks both sides of the room equally, there is no overt suggestion of neglect. Allergies/Adverse Reactions: No Known Allergies Allergy (Unverified 10/11/18 05:16)
--- NOTE | 2018-10-12 09:27 | HOSPPROG ---
Hospitalist Progress Note Assessment/Plan: 82yo M with h/o IDDM, CKD stage 2 found unresponsive at home. In DKA, intubated in ED for GCS of 3, now extubated. 1. DKA: Unclear precipitant. - Following protocol. Anion gap closed. Remain in insulin gtt - Monitor and replete electrolytes PRN 2. Fever: Per family, no infectious s/s prior to event. - Follow blood and sputum cultures, procalcitonin pending - Continue zosyn for now, consider dc if procalcitonin negative 3. Rhabdomyolysis: Mild, CK still rising at 2400 - IVF as tolerates, serial CK until down-trending 4. KYLE: Dehydrated d/t elevated BG. - Improving with fluids 5. Acute respiratory failure: Now extubated and on 3-4L NC. - Wean O2 as able 6. Acute metabolic encephalopathy: D/t severe acidemia/metabolic derangements. Still not at baseline - Avoid centrally acting meds, allow to wake up 7. Right arm weakness: Improved. Concern for CVA vs focal neuro deficit from DKA. Stroke alert called AM 10/11 - Noncon CT head, CTA head/neck without etiology - Neurology consulted, brain MRI ordered 8. Complete heart block: - s/p temporary pacer wire by cardiology however he is not requiring this any further, which indicates that CHB was likely driven by metabolic disturbances and unlikely to be precipitant of DKA - monitor need for permanent pacemaker device 9. Hyperkalemia: Multifactorial, now normalized. - Mgmt of renal failure, dka as above 10. Atrial fibrillation: Noted on admit, new diagnosis. - TTE grossly unremarkable valves, chamber size 11. Mild dementia: He is not in memory unit per family (contrary to prior notes) . 12. HTN: BP actually a bit up now - Restarted home amlodipine, hold atenolol and lisinopril VTE ppx: LMWH GI ppx: H2RA Code: full Dispo: Remain inpatient. Case discussed with patient's daughter (RIKA) at bedside. I spent a total of 40 minutes of critical care time involving this patient. Subjective: Extubated this AM. Confused, responding intermittently to verbal stimuli but not reliably following commands. Moving right arm much better. Objective: Vital Signs Temp Pulse Resp BP Pulse Ox 38.0 C 78 26 H 148/65 H 95 10/12/18 09:00 10/12/18 09:00 10/12/18 09:00 10/12/18 09:00 10/12/18 09:00 Microbiology 10/11/18 14:30 - Final Sputum, Induced/Suctioned Laboratory Results 10/12/18 05:30 10/12/18 05:30 10/11/18 10/12/18 10/13/18 05:59 05:59 05:59 Intake Total 8850 Output Total 1860 Balance 6990 PT 15.1 SEC (12.0-15.0) H 10/11/18 05:13 INR 1.17 (0.83-1.16) H 10/11/18 05:13 - Physical Exam Constitutional: no apparent distress Eyes: PERRL, anicteric sclera Ears, Nose, Mouth, Throat: dry mucous membranes Cardiovascular: regular rate and rhythym, no murmur, rub, or gallop, No edema Respiratory: no respiratory distress, rhonchi Gastrointestinal: normoactive bowel sounds, soft, non-tender abdomen, no palpable masses Genitourinary: moreau in urethra Skin: no rashes or abrasions, no fluctuance, no induration Musculoskeletal: other (movign right arm spontaneously) Neurologic: other (responding to verbal stimuli, not following commands reliably ) Psychiatric: encephalopathic ICD10 Worksheet Patient Problems: Problems Problem Status Onset DKA (diabetic ketoacidoses) Acute Hyperglycemia Acute Respiratory failure Acute Unresponsive Acute Closed comminuted intertrochanteric fracture of femur Acute
--- NOTE | 2018-10-12 09:27 | CPEKG ---
Test Reason : OPEN Blood Pressure : / mmHG Vent. Rate : 074 BPM Atrial Rate : 123 BPM P-R Int : 077 ms QRS Dur : 099 ms QT Int : 442 ms P-R-T Axes : 000 -24 141 degrees QTc Int : 491 ms Atrial fibrillation Borderline left axis deviation Confirmed by Angel Yang ([id number]) on 10/12/2018 9:26:45 AM Referred By: Elly Grant Confirmed By:Angel Yang
[2018-10-12] MEDS: ENOXAPARIN 100 MG/ML SYR SC SCH ×2 (09:29→19:36)
[2018-10-12] MEDS: CHLORHEXIDINE GLUCONATE 15 ML UDL PO SCH ×2 (09:29→19:39)
[2018-10-12] MEDS: FAMOTIDINE 20 MG/NACL 50 ML IV SCH ×2 (09:29→19:39)
[2018-10-12] MEDS: INSULIN REGULAR HUMAN 100 UNIT in NS 100 ML IV SCH (09:30)
[2018-10-12] MEDS ORDERED: NS 1,000 ML IV SCH (11:00)
[2018-10-12] MEDS ORDERED: ACETAMINOPHEN 650 MG SUPP PR PRN (13:37)
--- NOTE | 2018-10-12 14:15 | PDINTPN ---
Server Progress Note Assessment/Plan: 82 M with DM found down at home for an undetermined period with severe hyperglycemia. As best as we understand, he was in a normal state of health but was found collapsed next to his bed unresponsive. On arrival to the ED he was intubated for a GCS of only 3 and found to have a glucose of 1100. He was started on the DKA protocol and transferred to the ICU where he was found to have prfound weakness/paresis of his RUE. A stroke alert was called but his second head CT in 4 hours and CTA head and neck were both negative. In addition , his EKG showed complete heart block and temporary pacer wires were urgently placed. He was febrile, so empiric antibiotics were started. * DKA- this has resolved and he transitioned from the protocol. Swallowing is improving, but his mental status is still poor (much better). Thje precipitating event remains unclear; hopefully as his LOC improves he may be able to clarify this. His has baseline dementia and does not recall any events. * Acute respiratory failure with hypoxia- his vent was stable overnight and he was easily extubated this am. No clear evidence of aspiration PNA and his procalcitonin was indeterminant. Reasonable to leave Zosyn for now. * Complete heart block- he was apparently paced some overnight, but has remained in NSR at 80-90 today. Permanent pacer eval underway by Dr. Park. Still possible that CHB was precipitating event for DKA if it persists since his metabolic catastrophe has largely resolved. * RUE weakness- mostly resolved today. an MRI is pending, but he will need clarification of his pacer status prior to the MRI, including the temp pacer. * Rhabdomyolysis- mild but CK still rising. Continue to follow * KYLE- mostly from dehydration and DKA (not rhabdo). Creatinine is falling and uop is appropriate. Continue IVF * Encephalopathy- I suspect a combination of severe DKA and medications related to ventilator. Should resolve but high risk for delirium. * * critical care time 65 minutes including family discussion at bedside Subjective: extubated this am without difficulty Objective: Vital Signs Temp Pulse Resp BP Pulse Ox 37.6 C 75 24 H 178/67 H 100 10/12/18 13:00 10/12/18 13:00 10/12/18 13:00 10/12/18 13:00 10/12/18 13:00 Microbiology 10/11/18 14:30 - Final Sputum, Induced/Suctioned Laboratory Results 10/12/18 05:30 10/12/18 05:30 10/11/18 10/12/18 10/13/18 05:59 05:59 05:59 Intake Total 8850 Output Total 1860 Balance 6990 PT 15.1 SEC (12.0-15.0) H 10/11/18 05:13 INR 1.17 (0.83-1.16) H 10/11/18 05:13 Physical Exam - Physical Exam General Appearance: no apparent distress, obtunded EENT: PERRL/EOMI, ET tube (since dc'd), No scleral icterus (R), No scleral icterus (L) Neck: supple, No lymphadenopathy (R), No lymphadenopathy (L) Respiratory: lungs clear, normal breath sounds, decreased breath sounds, No respiratory distress, No accessory muscle use Cardiac/Chest: regular rate, rhythm, No edema, No JVD, No bradycardia, No tachycardia Abdomen: non-tender, soft, No distended Skin: normal color, warm/dry, No cyanosis Lymphatic: no adenopathy Extremities: No pedal edema Neuro/Psych: cognition abnormalities ICD10 Worksheet Patient Problems: Problems Problem Status Onset DKA (diabetic ketoacidoses) Acute Hyperglycemia Acute Respiratory failure Acute Unresponsive Acute Closed comminuted intertrochanteric fracture of femur Acute
[2018-10-12 14:38] LABS: CREATINE KINASE 3192 IU/L (0-224)
--- NOTE | 2018-10-12 15:07 | ASMTCMCOM ---
CM Note CM Note Notes: Family meeting held today, see note by Spiritual Care in notes section for more information. Copies of [facility]POA paperwork were provided by family and placed in chart. Pt's three children are assigned Co-agents. CM provided letter of hospitalization. Discharge needs TBD at this time. CM to follow. Plan: TBD Date Signed: 10/12/2018 03:07 PM Electronically Signed By:SHIRLENE Mcmahan
[2018-10-12 19:19] LABS: CREATINE KINASE 2641 IU/L (0-224)
[2018-10-12] MEDS: amLODIPine BESYLATE 5 MG TAB PO SCH (21:03)
[2018-10-13 01:41] LABS: CREATINE KINASE 2056 IU/L (0-224)
[2018-10-13] MEDS: hydrALAZINE 20 MG/ML VIAL IVP PRN ×3 (02:40→18:49)
[2018-10-13] MEDS: PIPERACILLIN/TAZO 2.25 GM/DEX 50 ML IV SCH ×2 (02:41→06:04)
[2018-10-13 06:30] LABS: CREATINE KINASE 1414 IU/L (0-224)
--- NOTE | 2018-10-13 07:45 | CPEKG ---
Test Reason : OPEN Blood Pressure : / mmHG Vent. Rate : 067 BPM Atrial Rate : 000 BPM P-R Int : 260 ms QRS Dur : 099 ms QT Int : 527 ms P-R-T Axes : 000 -33 103 degrees QTc Int : 557 ms Atrial fibrillation Left axis deviation PVCs Nonspecific T abnormalities, lateral leads Prolonged QT interval Confirmed by Angel Yang ([id number] on 10/13/2018 7:44:57 AM Referred By: Elly Grant Confirmed By:Angel Yang
[2018-10-13] MEDS: ENOXAPARIN 100 MG/ML SYR SC SCH ×2 (08:08→21:21)
[2018-10-13] MEDS: FAMOTIDINE 20 MG/NACL 50 ML IV SCH ×2 (08:09→21:20)
[2018-10-13] MEDS: CHLORHEXIDINE GLUCONATE 15 ML UDL PO SCH ×2 (08:09→22:00)
[2018-10-13] MEDS: POTASSIUM Cl (KCl) 100 ML IV SCH (09:46)
--- NOTE | 2018-10-13 09:48 | NEUROPROG ---
Assessment: 1. Right arm weakness 2. Diabetic ketoacidosis MRI brain pending. CK is trending down now; contemporaneous to the down trending CK, his right arm is improving. Indeed, there is no asymmetry in testing his left and right upper extremities today. He has both volitional and spontaneous movement in the right arm which is equal to the left arm. I understand that we need to check with the pacemaker side for MRI compatibility. We Will follow-up after MRI is complete to review and make further recommendations accordingly. 25 total minutes floor time; over 50% counseling and coordination of care. Subjective: Improving right arm Objective: Vital Signs Temp Pulse Resp BP Pulse Ox 37 C 75 25 H 179/59 H 96 10/13/18 08:00 10/13/18 08:00 10/13/18 08:00 10/13/18 08:00 10/13/18 08:00 Microbiology 10/11/18 14:30 - Final Sputum, Induced/Suctioned Laboratory Results 10/13/18 05:40 10/13/18 05:40 10/12/18 10/13/18 10/14/18 05:59 05:59 05:59 Intake Total 8850 3438.7 Output Total 1860 1630 Balance 6990 1808.7 PT 15.1 SEC (12.0-15.0) H 10/11/18 05:13 INR 1.17 (0.83-1.16) H 10/11/18 05:13 He is awake and alert Remains confused With testing of external rotation and finger extension, right and left upper extremities were equal today Allergies/Adverse Reactions: Beta-Blockers (Beta-Adrenergic Bloc Allergy (Verified 10/13/18 07:28)
[2018-10-13] MEDS: ENALAPRILAT DIHYDRATE 1.25 MG/ML VIAL IVP PRN ×2 (13:51→21:18)
--- NOTE | 2018-10-13 14:44 | PDINTPN ---
Colleter Progress Note Assessment/Plan: 82 M with DM found down at home for an undetermined period with severe hyperglycemia. As best as we understand, he was in a normal state of health but was found collapsed next to his bed unresponsive. On arrival to the ED he was intubated for a GCS of only 3 and found to have a glucose of 1100. He was started on the DKA protocol and transferred to the ICU where he was found to have prfound weakness/paresis of his RUE. A stroke alert was called but his second head CT in 4 hours and CTA head and neck were both negative. In addition , his EKG showed complete heart block and temporary pacer wires were urgently placed. He was febrile, so empiric antibiotics were started. * DKA- this has resolved and he transitioned from the protocol. Still unable to recall precipitating events. His has baseline dementia and does not recall any events. * Acute respiratory failure with hypoxia- his vent was stable overnight and he was easily extubated 10/12. No clear evidence of aspiration PNA and his procalcitonin was indeterminant. Discussed abx on rounds. Ok to dc zosyn since no convincing evidence of pna. * Complete heart block- he was apparently paced some overnight 10/11, but has not required it since. Still possible that CHB was precipitating event for DKA if it persists since his metabolic catastrophe has largely resolved. He is now in atrial flutter with rate controlled, but temp pacer wires remain. * RUE weakness- resolved today. an MRI is still pending, but he will need clarification of his pacer status prior to the MRI, including the temp pacer. * Rhabdomyolysis- mild but CK peaked and now falling. Not significant enough to effect KYLE or UE weakness * KYLE- mostly from dehydration and DKA (not rhabdo). Creatinine is falling and uop is appropriate. Continue IVF * Encephalopathy- I suspect a combination of severe DKA and medications related to ventilator. Continues to improve. Given high delirium risk- avoid benzos. * 10/13/18 14:39 Subjective: improved mental status, stable off vent Objective: Vital Signs Temp Pulse Resp BP Pulse Ox 36.8 C 80 22 H 185/51 H 97 10/13/18 14:00 10/13/18 14:00 10/13/18 14:00 10/13/18 14:00 10/13/18 14:00 Microbiology 10/11/18 14:30 - Final Sputum, Induced/Suctioned Laboratory Results 10/13/18 05:40 10/13/18 12:25 10/12/18 10/13/18 10/14/18 05:59 05:59 05:59 Intake Total 8850 3438.7 Output Total 1860 1630 Balance 6990 1808.7 PT 15.1 SEC (12.0-15.0) H 10/11/18 05:13 INR 1.17 (0.83-1.16) H 10/11/18 05:13 Physical Exam - Physical Exam General Appearance: alert, no apparent distress EENT: PERRL/EOMI Neck: supple Respiratory: lungs clear, normal breath sounds, decreased breath sounds, No respiratory distress, No accessory muscle use Cardiac/Chest: regular rate, rhythm, No edema Abdomen: non-tender, soft, No distended Skin: warm/dry, No normal color, No cyanosis Neuro/Psych: alert, normal mood/affect, cognition abnormalities ICD10 Worksheet Patient Problems: Problems Problem Status Onset DKA (diabetic ketoacidoses) Acute Hyperglycemia Acute Respiratory failure Acute Unresponsive Acute Closed comminuted intertrochanteric fracture of femur Acute
--- NOTE | 2018-10-13 17:40 | HOSPPROG ---
Hospitalist Progress Note Assessment/Plan: 82yo M with h/o IDDM, CKD stage 2 found unresponsive at home. In DKA, intubated in ED for GCS of 3, now extubated. 1. DKA: Unclear precipitant. Anion gap closed. - Remain in insulin gtt until reliably tolerating PO 2. Fever: No obvious source, possibly aspiration pneumonitis? Procalcitonin equivocal - Stopping antibiotics (zosyn), follow cultures 3. Rhabdomyolysis: Mild, CK now down-trending. 4. KYLE: Resolved. Cr improved with hydration, correction of elevated glucose. 5. Acute respiratory failure: Now extubated and on room air. 6. Acute metabolic encephalopathy: D/t severe acidemia/metabolic derangements + sedating meds while on vent. Still not at baseline but better - Avoid centrally acting meds, allow to wake up 7. Right arm weakness: Now resolved. Likely focal neuro deficit from DKA. Stroke alert called AM 10/11 (negative work up thus far) - Brain MRI pending compatibility of temp pacer wires with MRI 8. Complete heart block: - s/p temporary pacer wire by cardiology however he is not requiring this any further, which indicates that CHB was likely driven by metabolic disturbances and unlikely to be precipitant of DKA - cardiology following, monitor need for permanent pacemaker device 9. Hyperkalemia: Multifactorial, now normalized. 10. Atrial fibrillation: New diagnosis. Rates controlled. TTE with normal valves , chamber sizes. - Will need to discuss anticoagulation moving forward 11. HTN: BP remains elevated - Holding atenolol (CHB) and lisinopril (hyperK) for now - Hydralazine 20mg IV Q6h PRN 12. Hypernatremia: Monitor. May need free water if PO intake does not improve soon. 13. Onychomycosis: Podiatry consultation. Of note, he does not carry a diagnosis of dementia (contrary to prior notes) per patient's daughter. VTE ppx: LMWH GI ppx: H2RA Diet: dysphagia, nectar thick liquids per MARKETING OPERATIONS SPECIALIST eval Code: full Dispo: Remain inpatient. I spent a total of 40 minutes of critical care time involving this patient. Subjective: More awake this AM, responding to some questions but not reliably. Moving right arm normally. Objective: Vital Signs Temp Pulse Resp BP Pulse Ox 37.1 C 85 18 153/67 H 96 10/13/18 16:00 10/13/18 16:00 10/13/18 16:00 10/13/18 16:00 10/13/18 16:00 Microbiology 10/11/18 14:30 - Final Sputum, Induced/Suctioned Laboratory Results 10/13/18 05:40 10/13/18 12:25 10/12/18 10/13/18 10/14/18 05:59 05:59 05:59 Intake Total 8850 3438.7 600 Output Total 1860 1630 700 Balance 6990 1808.7 -100 PT 15.1 SEC (12.0-15.0) H 10/11/18 05:13 INR 1.17 (0.83-1.16) H 10/11/18 05:13 - Physical Exam Constitutional: no apparent distress Eyes: PERRL, anicteric sclera Ears, Nose, Mouth, Throat: moist mucous membranes Cardiovascular: regular rate and rhythym, no murmur, rub, or gallop, No edema Respiratory: no respiratory distress, no rales or rhonchi, clear to auscultation Gastrointestinal: normoactive bowel sounds, soft, non-tender abdomen, no palpable masses Genitourinary: no bladder fullness, no bladder tenderness, no renal bruits Skin: no rashes or abrasions, no fluctuance, no induration, other (right temp pacer catheter site c/d/i) Musculoskeletal: full muscle strength Neurologic: other (arousable to verbal stimuli, not oriented) Psychiatric: encephalopathic ICD10 Worksheet Patient Problems: Problems Problem Status Onset DKA (diabetic ketoacidoses) Acute Hyperglycemia Acute Respiratory failure Acute Unresponsive Acute Closed comminuted intertrochanteric fracture of femur Acute
[2018-10-13] MEDS ORDERED: hydrALAZINE 20 MG/ML VIAL IVP ONE (22:49)
[2018-10-14] MEDS ORDERED: POTASSIUM Cl (KCl) 50 ML IV ONE (02:22)
[2018-10-14] MEDS: POTASSIUM Cl (KCl) 50 ML IV SCH ×3 (06:44→09:48)
[2018-10-14] MEDS: CHLORHEXIDINE GLUCONATE 15 ML UDL PO SCH (08:13)
[2018-10-14] MEDS: FAMOTIDINE 20 MG/NACL 50 ML IV SCH (08:13)
[2018-10-14] MEDS: ENOXAPARIN 100 MG/ML SYR SC SCH ×2 (08:13→21:08)
[2018-10-14] MEDS: POTASSIUM Cl (KCl) 100 ML IV SCH ×3 (09:06→23:51)
--- NOTE | 2018-10-14 10:23 | NEUROPROG ---
Assessment: 1. Right arm weakness, resolved 2. Diabetic ketoacidosis MRI brain pending. CK is trending down now; contemporaneous to the downtrending CK, his right arm is improving. Indeed, there is no asymmetry in testing his left and right upper extremities today. He has both volitional and spontaneous movement in the right arm which is equal to the left arm. Differential diagnosis for previous right arm weakness may be focal neurologic deficits in the setting of diabetic ketoacidosis, mild focal rhabdomyolysis symptomatology or stroke. I recommend we obtain brain MRI without contrast when he is able to. We will sign off for now and follow up as needed. Once the MRI brain is complete please contact Neurology service to review any the abnormalities that may be present. Please do not hesitate to call for any questions or changes in neurologic status with this patient. We appreciate the consultation. 25 total minutes floor time; over 50% counseling and coordination of care. Subjective: He remains confused No weakness in the right arm Objective: Vital Signs Temp Pulse Resp BP Pulse Ox 36.7 C 109 H 20 150/83 H 97 10/14/18 08:00 10/14/18 10:00 10/14/18 10:00 10/14/18 10:00 10/14/18 10:00 Microbiology 10/11/18 14:30 - Final Sputum, Induced/Suctioned Laboratory Results 10/14/18 04:45 10/14/18 04:45 10/13/18 10/14/18 10/15/18 05:59 05:59 05:59 Intake Total 3438.7 2975 Output Total 1630 1350 Balance 1808.7 1625 PT 15.1 SEC (12.0-15.0) H 10/11/18 05:13 INR 1.17 (0.83-1.16) H 10/11/18 05:13 Allergies/Adverse Reactions: Beta-Blockers (Beta-Adrenergic Bloc Allergy (Verified 10/13/18 07:28)
--- NOTE | 2018-10-14 11:07 | PDINTPN ---
Dredge Boat Engineer Progress Note Assessment/Plan: 82 M with DM found down at home for an undetermined period with severe hyperglycemia. As best as we understand, he was in a normal state of health but was found collapsed next to his bed unresponsive. On arrival to the ED he was intubated for a GCS of only 3 and found to have a glucose of 1100. He was started on the DKA protocol and transferred to the ICU where he was found to have profound weakness/paresis of his RUE. A stroke alert was called but his second head CT in 4 hours and CTA head and neck were both negative. In addition , his EKG showed complete heart block and temporary pacer wires were urgently placed. He was febrile, so empiric antibiotics were started. * DKA- this has resolved and he transitioned from the protocol. Will resume lantus and sliding scale today. Hgb A1C is >10% suggesting poor [facility]itent[facility] control. * Acute respiratory failure with hypoxia- resolved * Complete heart block- he was apparently paced some overnight 10/11, but has not required it since. Remains in afib/flutter but no CHB at this time. * RUE weakness- resolved. an MRI is still pending, but would favor waiting since it would likely require sedation to achieve an adequate study and will not likely have an immediate impact on management. * Rhabdomyolysis- mild but CK peaked and now falling. Not significant enough to effect KYLE or UE weakness * KYLE- mostly from dehydration and DKA (not rhabdo). Creatinine is falling and uop is appropriate. Resolved * Encephalopathy- I suspect a combination of severe DKA and medications related to ventilator. Continues to improve. Given high delirium risk- avoid benzos. Family reports 2-3 drinks daily but no history of etoh wd, no current significant hyperadrenergic state. Will use prn Zyprexa but not CIWA for now. * Dispo: given his current requirements for sitter, mitts, and constant supervision to avoid self-harm, he should stay at least in step down today. Subjective: remains in afib. mental status remains abnormal but improved Objective: Vital Signs Temp Pulse Resp BP Pulse Ox 36.7 C 109 H 20 150/83 H 97 10/14/18 08:00 10/14/18 10:00 10/14/18 10:00 10/14/18 10:00 10/14/18 10:00 Microbiology 10/11/18 14:30 - Final Sputum, Induced/Suctioned Laboratory Results 10/14/18 04:45 10/14/18 04:45 10/13/18 10/14/18 10/15/18 05:59 05:59 05:59 Intake Total 3438.7 2975 Output Total 1630 1350 Balance 1808.7 1625 PT 15.1 SEC (12.0-15.0) H 10/11/18 05:13 INR 1.17 (0.83-1.16) H 10/11/18 05:13 Physical Exam - Physical Exam General Appearance: alert, no apparent distress, other (confused but cooperative ) EENT: PERRL/EOMI Neck: supple Respiratory: lungs clear, normal breath sounds, No respiratory distress, No accessory muscle use Cardiac/Chest: irregularly irregular, No edema Abdomen: non-tender, soft, No distended Skin: normal color, warm/dry, No cyanosis Lymphatic: no adenopathy Extremities: No pedal edema Neuro/Psych: alert, normal mood/affect, cognition abnormalities, other (no tremor) ICD10 Worksheet Patient Problems: Problems Problem Status Onset DKA (diabetic ketoacidoses) Acute Hyperglycemia Acute Respiratory failure Acute Unresponsive Acute Closed comminuted intertrochanteric fracture of femur Acute
[2018-10-14] MEDS: OLANZapine DISINTEGR 5 MG TAB PO PRN (11:40)
[2018-10-14] MEDS ORDERED: FLUMAZENIL 0.5 MG/5 ML MDV IVP PRN (16:37)
[2018-10-14] MEDS: LORazepam 2 MG/ML INJ IVP PRN (16:42)
--- NOTE | 2018-10-14 17:15 | HOSPPROG ---
Hospitalist Progress Note Assessment/Plan: 82yo M with h/o IDDM, CKD stage 2 found unresponsive at home. In DKA, intubated in ED for GCS of 3, now extubated and DKA resolved. 1. DKA: Unclear precipitant. Anion gap closed. taking adequate po - restart lantus BID dosing -add SSI -A1c was over 10%, will likely need uptitration. 2. Fever: No obvious source, possibly aspiration pneumonitis? Procalcitonin equivocal - Stopping antibiotics (zosyn), follow cultures 3. Rhabdomyolysis: Mild, CK now down-trending. 4. KYLE: Resolved. Cr improved with hydration, correction of elevated glucose. 5. Acute respiratory failure: Now extubated and on room air. 6. Acute metabolic encephalopathy: D/t severe acidemia/metabolic derangements + sedating meds while on vent. Still not at baseline but better - Avoid centrally acting meds, allow to wake up -Neurology has consulted, recommends MRI when able. 7. Right arm weakness: Now resolved. Likely focal neuro deficit from DKA. Stroke alert called AM 10/11 (negative work up thus far) - Brain MRI pending compatibility of temp pacer wires with MRI 8. Complete heart block: - s/p temporary pacer wire by cardiology however he is not requiring this any further, which indicates that CHB was likely driven by metabolic disturbances and unlikely to be precipitant of DKA - cardiology following, monitor need for permanent pacemaker device 9. Hyperkalemia: Multifactorial, now normalized. 10. Atrial fibrillation: New diagnosis. Rates controlled. TTE with normal valves , chamber sizes. - Will need to discuss anticoagulation moving forward 11. HTN: BP remains elevated - Holding atenolol (CHB) and lisinopril (hyperK) for now - Hydralazine 20mg IV Q6h PRN 12. Hypernatremia: Monitor. May need free water if PO intake does not improve soon. -continues to trend up -has been getting NS. -Stop NS, start 1/2NS, follow sodium -goal correction by this time tomorrow is 142 VTE ppx: LMWH GI ppx: H2RA Diet: dysphagia, nectar thick liquids per COOLING MACHINE OPERATOR eval Code: full Dispo: Remain inpatient. I spent a total of 60 minutes of critical care time on the management of this patient with over half spent on direct patient care. Subjective: Patient confused, anxious and agitated. Objective: Vital Signs Temp Pulse Resp BP Pulse Ox 37.1 C 89 20 169/68 H 94 10/14/18 16:00 10/14/18 16:00 10/14/18 16:00 10/14/18 16:00 10/14/18 16:00 Microbiology 10/11/18 14:30 - Final Sputum, Induced/Suctioned Laboratory Results 10/14/18 04:45 10/14/18 15:00 10/13/18 10/14/18 10/15/18 05:59 05:59 05:59 Intake Total 3438.7 2975 Output Total 1630 1350 Balance 1808.7 1625 PT 15.1 SEC (12.0-15.0) H 10/11/18 05:13 INR 1.17 (0.83-1.16) H 10/11/18 05:13 - Physical Exam Constitutional: no apparent distress, appears nourished, not in pain Eyes: PERRL, anicteric sclera, EOMI Ears, Nose, Mouth, Throat: moist mucous membranes, hearing normal, ears appear normal, no oral mucosal ulcers Cardiovascular: regular rate and rhythym, no murmur, rub, or gallop Respiratory: no respiratory distress, no rales or rhonchi, clear to auscultation Gastrointestinal: normoactive bowel sounds, soft, non-tender abdomen, no palpable masses Genitourinary: no bladder fullness, no bladder tenderness, no renal bruits Skin: no rashes or abrasions, no fluctuance, no induration Musculoskeletal: full muscle strength, no muscle tenderness, normal joint ROM Neurologic: other (hallucinating and delirious. ) Psychiatric: encephalopathic, anxious, agitated, poor memory Lymph, Heme, Immunologic: no cervical LAD, no supraclavicular LAD ICD10 Worksheet Patient Problems: Problems Problem Status Onset DKA (diabetic ketoacidoses) Acute Hyperglycemia Acute Respiratory failure Acute Unresponsive Acute Closed comminuted intertrochanteric fracture of femur Acute
[2018-10-14] MEDS ORDERED: D50W 25 GM/50 ML SYR IVP PRN (17:21)
[2018-10-14] MEDS: ENALAPRILAT DIHYDRATE 1.25 MG/ML VIAL IVP PRN (18:28)
[2018-10-14] MEDS: 1/2 NS 1,000 ML IV SCH (18:29)
[2018-10-14] MEDS: INSULIN LISPRO 100 UNIT/ML SC SCH (18:36)
[2018-10-14] MEDS: THIAMINE HCL 100 MG TAB PO SCH (18:37)
[2018-10-14] MEDS ORDERED: INSULIN GLARGINE 100 UNITS/ML UNIT SC SCH (21:00)
[2018-10-14] MEDS: hydrALAZINE 20 MG/ML VIAL IVP PRN (21:03)
[2018-10-14] MEDS: FAMOTIDINE 20 MG TAB PO SCH (21:08)
[2018-10-15] MEDS: OLANZapine DISINTEGR 5 MG TAB PO PRN ×3 (00:52→23:29)
[2018-10-15] MEDS: POTASSIUM Cl (KCl) 100 ML IV SCH ×5 (01:00→22:45)
[2018-10-15] MEDS: LORazepam 2 MG/ML INJ IVP PRN ×2 (02:00→20:39)
[2018-10-15 06:09] LABS: PLATELET COUNT 153 10^3/uL (150-400)
[2018-10-15] MEDS: INSULIN LISPRO 100 UNIT/ML SC SCH ×3 (07:29→17:48)
[2018-10-15] MEDS: ENOXAPARIN 100 MG/ML SYR SC SCH ×2 (07:30→20:39)
[2018-10-15] MEDS: FAMOTIDINE 20 MG TAB PO SCH ×2 (07:31→20:39)
[2018-10-15] MEDS: THIAMINE HCL 100 MG TAB PO SCH (07:31)
[2018-10-15] MEDS ORDERED: INSULIN GLARGINE 100 UNITS/ML UNIT SC SCH ×3 (09:00→13:44)
[2018-10-15] MEDS: 1/2 NS 1,000 ML IV SCH (13:27)
--- NOTE | 2018-10-15 13:52 | HOSPPROG ---
Hospitalist Progress Note Assessment/Plan: 82yo M with h/o IDDM, CKD stage 2 found unresponsive at home. In DKA, intubated in ED for GCS of 3, now extubated and DKA resolved. 1. DKA: Unclear precipitant. Anion gap closed. taking adequate po - Restarted lantus at 15HS 20 AM and patient still with substantial hyperglycemia. -Increase lantus to 22 units BID tonight -Increase SSI to higher dose. -A1c was over 10%, will likely need uptitration. 2. Fever: No obvious source, possibly aspiration pneumonitis? Procalcitonin equivocal - Stopping antibiotics (zosyn), follow cultures (GBS grew out) patient with no evidence of infection currently 3. Rhabdomyolysis: Mild, CK now down-trending. 4. KYLE: Resolved. Cr improved with hydration, correction of elevated glucose. 5. Acute respiratory failure: Now extubated and on room air. 6. Acute metabolic encephalopathy: D/t severe acidemia/metabolic derangements + sedating meds while on vent. Still not at baseline but better - Avoid centrally acting meds, allow to wake up -Neurology has consulted, recommends MRI when able. -some concern for possible Etoh withdrawal, ciwa added 7. Right arm weakness: Now resolved. Likely focal neuro deficit from DKA. Stroke alert called AM 10/11 (negative work up thus far) - Brain MRI pending compatibility of temp pacer wires with MRI 8. Complete heart block: - s/p temporary pacer wire by cardiology however he is not requiring this any further, which indicates that CHB was likely driven by metabolic disturbances and unlikely to be precipitant of DKA - cardiology following, monitor need for permanent pacemaker device 9. Hyperkalemia: Multifactorial, now normalized. 10. Atrial fibrillation: New diagnosis. Rates controlled. TTE with normal valves , chamber sizes. - Will need to discuss anticoagulation moving forward 11. HTN: BP remains elevated - Holding atenolol (CHB) and lisinopril (hyperK) for now - Hydralazine 20mg IV Q6h PRN 12. Hypernatremia: Monitor. Sodium better overnight once started 1/2NS. continue for now until his free water intake is up. VTE ppx: LMWH GI ppx: H2RA Diet: dysphagia, nectar thick liquids per STUDENT ACTIVITIES DIRECTOR eval Code: full Dispo: Remain inpatient. I spent a total of 60 minutes of critical care time on the management of this patient with over half spent on direct patient care. Subjective: patient is somnolent after getting ativan. Objective: Vital Signs Temp Pulse Resp BP Pulse Ox 36.7 C 98 19 142/53 H 97 10/15/18 12:00 10/15/18 12:00 10/15/18 12:00 10/15/18 12:00 10/15/18 12:00 Microbiology 10/11/18 14:30 - Final Sputum, Induced/Suctioned Laboratory Results 10/15/18 05:45 10/15/18 11:40 10/14/18 10/15/18 10/16/18 05:59 05:59 05:59 Intake Total 2975 1920 Output Total 1350 1000 Balance 1625 920 PT 15.1 SEC (12.0-15.0) H 10/11/18 05:13 INR 1.17 (0.83-1.16) H 10/11/18 05:13 - Physical Exam Constitutional: no apparent distress Eyes: PERRL, anicteric sclera, EOMI Ears, Nose, Mouth, Throat: moist mucous membranes, hearing normal, ears appear normal, no oral mucosal ulcers Cardiovascular: regular rate and rhythym, no murmur, rub, or gallop Respiratory: no respiratory distress, no rales or rhonchi, clear to auscultation Gastrointestinal: normoactive bowel sounds, soft, non-tender abdomen, no palpable masses Genitourinary: no bladder fullness, no bladder tenderness, no renal bruits Skin: no rashes or abrasions, no fluctuance, no induration Musculoskeletal: generalized weakness Neurologic: other (somnolent but arousable. ) Psychiatric: encephalopathic Lymph, Heme, Immunologic: no cervical LAD, no supraclavicular LAD ICD10 Worksheet Patient Problems: Problems Problem Status Onset DKA (diabetic ketoacidoses) Acute Hyperglycemia Acute Respiratory failure Acute Unresponsive Acute Closed comminuted intertrochanteric fracture of femur Acute
--- NOTE | 2018-10-15 14:49 | ASMTCMCOM ---
CM Note CM Note Notes: Therapies evals on hold due to patient agitation. CM will follow. Date Signed: 10/15/2018 02:48 PM Electronically Signed By:Anya Nichols LCSW
--- NOTE | 2018-10-15 15:05 | PDINTPN ---
Director Athletic Progress Note Assessment/Plan: 82 M with DM found down at home for an undetermined period with severe hyperglycemia. As best as we understand, he was in a normal state of health but was found collapsed next to his bed unresponsive. On arrival to the ED he was intubated for a GCS of only 3 and found to have a glucose of 1100. He was started on the DKA protocol and transferred to the ICU where he was found to have profound weakness/paresis of his RUE. A stroke alert was called but his second head CT in 4 hours and CTA head and neck were both negative. In addition , his EKG showed complete heart block and temporary pacer wires were urgently placed. He was febrile, so empiric antibiotics were started. * DKA- this has resolved and he transitioned from the protocol. Hgb A1C is >10 % suggesting poor mcc control. Increasing doses of lantus as BG still high. * Acute respiratory failure with hypoxia- resolved * Complete heart block- he was apparently paced some overnight 10/11, but has not required it since. Remains in afib/flutter but no CHB at this time. Holding AVN blocking agents for now. * RUE weakness- resolved. an MRI is still pending, but would favor waiting since it would likely require sedation to achieve an adequate study and will not likely have an immediate impact on management. * Rhabdomyolysis- mild but CK peaked and now falling. Not significant enough to effect KYLE or UE weakness * KYLE- mostly from dehydration and DKA (not rhabdo). Creatinine is falling and uop is appropriate. Resolved * Encephalopathy- I suspect a combination of severe DKA and medications related to ventilator. Continues to improve. Given high delirium risk- avoid benzos. Family reports 2-3 drinks daily but no history of etoh wd, no current significant hyperadrenergic state. Increased Zyprexa dose and avoid CIWA for now. * Dispo: given his current requirements for sitter, mitts, and constant supervision to avoid self-harm, he should remain in stepdown. 10/15/18 15:00 Subjective: called early last evening by RN with reports of being "wild" and in danger of pulling lines etc. Requested CIWA protocol so started, but only 4 mg total ativan given. Objective: Vital Signs Temp Pulse Resp BP Pulse Ox 36.7 C 67 18 103/45 L 97 10/15/18 12:00 10/15/18 14:00 10/15/18 14:00 10/15/18 14:00 10/15/18 14:00 Microbiology 10/11/18 14:30 - Final Sputum, Induced/Suctioned Laboratory Results 10/15/18 05:45 10/15/18 11:40 10/14/18 10/15/18 10/16/18 05:59 05:59 05:59 Intake Total 2975 1920 Output Total 1350 1000 Balance 1625 920 PT 15.1 SEC (12.0-15.0) H 10/11/18 05:13 INR 1.17 (0.83-1.16) H 10/11/18 05:13 Physical Exam - Physical Exam General Appearance: alert, no apparent distress EENT: PERRL/EOMI Neck: supple Respiratory: lungs clear, normal breath sounds, decreased breath sounds, No respiratory distress, No accessory muscle use Cardiac/Chest: irregularly irregular, No edema Abdomen: non-tender, soft, No distended Skin: normal color, warm/dry, No cyanosis Lymphatic: no adenopathy Extremities: No pedal edema Neuro/Psych: alert, normal mood/affect, cognition abnormalities ICD10 Worksheet Patient Problems: Problems Problem Status Onset DKA (diabetic ketoacidoses) Acute Hyperglycemia Acute Respiratory failure Acute Unresponsive Acute Closed comminuted intertrochanteric fracture of femur Acute
[2018-10-15] MEDS: ENALAPRILAT DIHYDRATE 1.25 MG/ML VIAL IVP PRN (18:23)
[2018-10-16] MEDS: LORazepam 2 MG/ML INJ IVP PRN (00:54)
[2018-10-16] MEDS: 1/2 NS 1,000 ML IV SCH ×2 (02:18→15:53)
[2018-10-16] MEDS: ENALAPRILAT DIHYDRATE 1.25 MG/ML VIAL IVP PRN ×2 (04:13→15:44)
[2018-10-16] MEDS: hydrALAZINE 20 MG/ML VIAL IVP PRN ×2 (08:13→16:06)
[2018-10-16] MEDS ORDERED: ESMOLOL/NACL 250 ML IV SCH (08:15)
[2018-10-16] MEDS: INSULIN LISPRO 100 UNIT/ML SC SCH ×3 (10:01→16:24)
[2018-10-16] MEDS: FAMOTIDINE 20 MG TAB PO SCH ×2 (10:02→21:16)
[2018-10-16] MEDS: OLANZapine DISINTEGR 10 MG TAB PO SCH ×2 (10:02→21:16)
[2018-10-16] MEDS: THIAMINE HCL 100 MG TAB PO SCH (10:03)
[2018-10-16] MEDS: ENOXAPARIN 100 MG/ML SYR SC SCH ×2 (10:03→21:28)
--- NOTE | 2018-10-16 10:04 | SOAPPROG ---
SOAP Progress Note Assessment/Plan: Assessment: 82 y/o man with dementia, HT and DM admitted with DKA, acidosis and temporary complete heart block requiring temporary transjugular pacer wire for several days now with HTN and afib at 110bpm. Echo 10/11/18 showed LVEF 63%, mild LVH, normal RVEF, mild AI and TR and moderate TR with estimated PAS 35mmhg. He is still very somnolent arousable to loud voice. On exam appears slightly dry to euvolemic but not in pulmonary edema. Usually at home on PO Atenolol 25mg daily , Lisinopril 40mg daily and Amlodipine 5mg daily. No ready yet to take PO meds. PLAN: 1)start Nitropaste 1'' q6hrs for more BP relief than anti-anginal. 2)Digoxin 0.25mg IV q4hrs x 3 then 0.125mg IV qam thereafter. 3)hopefully in next day start back on some of his home BP meds probably Lisinopril and Amlodipine first and only Atenolol if HR > 75bpm. Thanks. Will follow with you. 10/16/18 09:59 Subjective: somnolent. Arousable. Can't give much history otherwise. Objective: Vital Signs Temp Pulse Resp BP Pulse Ox 37.6 C 97 20 157/46 H 97 10/16/18 07:51 10/16/18 07:51 10/16/18 07:51 10/16/18 08:50 10/16/18 07:51 Microbiology 10/11/18 14:30 - Final Sputum, Induced/Suctioned Laboratory Results 10/15/18 05:45 10/16/18 05:00 10/15/18 10/16/18 10/17/18 05:59 05:59 05:59 Intake Total 1920 2721 Output Total 1000 1350 Balance 920 1371 PT 15.1 SEC (12.0-15.0) H 10/11/18 05:13 INR 1.17 (0.83-1.16) H 10/11/18 05:13 Physical Exam - Physical Exam General Appearance: other (very somnolent but arousable to loud voice but won't open eyes.) EENT: normal ENT inspection Neck: full range of motion Respiratory: lungs clear Cardiac/Chest: systolic murmur, irregularly irregular, No edema, No gallop, No JVD Peripheral Pulses: 1+: femoral (R), femoral (L), dorsalis-pedis (R), dorsalis- pedis (L), 2+: carotid (R), carotid (L) Abdomen: No non-tender, No ascites Skin: warm/dry Extremities: No pedal edema Neuro/Psych: disoriented to person, disoriented to place, disoriented to time ICD10 Worksheet Patient Problems: Problems Problem Status Onset DKA (diabetic ketoacidoses) Acute Hyperglycemia Acute Respiratory failure Acute Unresponsive Acute Closed comminuted intertrochanteric fracture of femur Acute
[2018-10-16] MEDS: NITROGLYCERIN 2% 1 GM PACKET TP SCH ×4 (10:13→23:59)
[2018-10-16 10:41] LABS: PLATELET COUNT 184 10^3/uL (150-400)
[2018-10-16] MEDS: DIGOXIN 500 MCG/2 ML AMP IVP SCH ×3 (11:14→18:23)
--- NOTE | 2018-10-16 12:20 | HOSPPROG ---
Hospitalist Progress Note Assessment/Plan: 82yo M with h/o IDDM, CKD stage 2 found unresponsive at home. In DKA, intubated in ED for GCS of 3, now extubated and DKA resolved. 1. DKA: Resolved. restarted on Lantus with uptitration. This morning had hypoglycemia. Unclear precipitant. Anion gap closed. taking adequate po - Restarted lantus at 15HS 20 AM and patient still with substantial hyperglycemia. -decrease lantus to 15 bid due to episode of hypoglycemia overnight. -Continue SSI -A1c was over 10% 2. Fever: No obvious source, possibly aspiration pneumonitis? Procalcitonin equivocal - Stopping antibiotics (zosyn), follow cultures (GBS grew out) patient with no evidence of infection currently 3. Rhabdomyolysis: Mild, CK now down-trending. 4. KYLE: Resolved. Cr improved with hydration, correction of elevated glucose. 5. Acute respiratory failure: Now extubated and on room air. 6. Acute metabolic encephalopathy: D/t severe acidemia/metabolic derangements + sedating meds while on vent. Still not at baseline but better - Avoid centrally acting meds, allow to wake up -Neurology has consulted, recommends MRI when able. -some concern for possible Etoh withdrawal, -no ativan -scheduled zyprexa 7. Right arm weakness: Now resolved. Likely focal neuro deficit from DKA. Stroke alert called AM 10/11 (negative work up thus far) - Brain MRI pending compatibility of temp pacer wires with MRI 8. Complete heart block: - s/p temporary pacer wire by cardiology however he is not requiring this any further, which indicates that CHB was likely driven by metabolic disturbances and unlikely to be precipitant of DKA - cardiology following, monitor need for permanent pacemaker device -recommending starting digoxin -start nitropaste for BP control 9. Hyperkalemia: Multifactorial, now normalized. 10. Atrial fibrillation: New diagnosis. Rates controlled. TTE with normal valves , chamber sizes. - Will need to discuss anticoagulation moving forward 11. HTN: BP remains elevated - Holding atenolol (CHB) and lisinopril (hyperK) for now - Hydralazine 20mg IV Q6h PRN -add nitropaste per cards 12. Hypernatremia: Monitor. Sodium better overnight once started 1/2NS. continue for now until his free water intake is up. VTE ppx: LMWH GI ppx: H2RA Diet: dysphagia, nectar thick liquids per [employer] eval Code: full Dispo: Remain inpatient. I spent a total of 40 minutes of critical care time on the management of this patient with over half spent on direct patient care. Subjective: somnolent Objective: Vital Signs Temp Pulse Resp BP Pulse Ox 37.6 C 119 H 25 H 149/56 H 94 10/16/18 07:51 10/16/18 11:19 10/16/18 11:19 10/16/18 11:19 10/16/18 11:19 Microbiology 10/11/18 14:30 - Final Sputum, Induced/Suctioned Laboratory Results 10/16/18 10:30 10/15/18 10/16/18 10/17/18 05:59 05:59 05:59 Intake Total 1920 2721 Output Total 1000 1350 Balance 920 1371 PT 15.1 SEC (12.0-15.0) H 10/11/18 05:13 INR 1.17 (0.83-1.16) H 10/11/18 05:13 - Physical Exam Constitutional: no apparent distress, appears nourished, not in pain Eyes: PERRL, anicteric sclera, EOMI Ears, Nose, Mouth, Throat: moist mucous membranes, hearing normal, ears appear normal, no oral mucosal ulcers Cardiovascular: regular rate and rhythym, no murmur, rub, or gallop Respiratory: no respiratory distress, no rales or rhonchi, clear to auscultation Gastrointestinal: normoactive bowel sounds, soft, non-tender abdomen, no palpable masses Genitourinary: no bladder fullness, no bladder tenderness, no renal bruits, moreau in urethra Skin: no rashes or abrasions, no fluctuance, no induration Musculoskeletal: generalized weakness Neurologic: other (unable to assess duet o lethargy and ams) Psychiatric: encephalopathic Lymph, Heme, Immunologic: no cervical LAD, no supraclavicular LAD ICD10 Worksheet Patient Problems: Problems Problem Status Onset DKA (diabetic ketoacidoses) Acute Hyperglycemia Acute Respiratory failure Acute Unresponsive Acute Closed comminuted intertrochanteric fracture of femur Acute
--- NOTE | 2018-10-16 12:24 | NEUROPROG ---
Assessment: 1. Right arm weakness, resolved 2. Diabetic ketoacidosis MRI brain pending. Right arm weakness resolved. No further asymmetry or weakness in right arm. Differential diagnosis for previous right arm weakness may be focal neurologic deficits in the setting of diabetic ketoacidosis, mild focal rhabdomyolysis symptomatology or stroke. I recommend we obtain brain MRI without contrast when he is able to. We will continue to follow as needed. Once the MRI brain is complete, please contact Neurology service to review any the abnormalities that may be present. Please do not hesitate to call for any questions or changes in neurologic status with this patient. We appreciate the consultation. 25 total minutes floor time; over 50% counseling and coordination of care. Subjective: No new symptoms No seizure Objective: Vital Signs Temp Pulse Resp BP Pulse Ox 37.6 C 119 H 25 H 149/56 H 94 10/16/18 07:51 10/16/18 11:19 10/16/18 11:19 10/16/18 11:19 10/16/18 11:19 Microbiology 10/11/18 14:30 - Final Sputum, Induced/Suctioned Laboratory Results 10/16/18 10:30 10/15/18 10/16/18 10/17/18 05:59 05:59 05:59 Intake Total 1920 2721 Output Total 1000 1350 Balance 920 1371 PT 15.1 SEC (12.0-15.0) H 10/11/18 05:13 INR 1.17 (0.83-1.16) H 10/11/18 05:13 Patient was asleep Was able to arouse him with voice Upper extremity strength is symmetric Allergies/Adverse Reactions: Beta-Blockers (Beta-Adrenergic Bloc Allergy (Verified 10/13/18 07:28)
[2018-10-16] MEDS: POTASSIUM Cl (KCl) 100 ML IV SCH ×3 (12:40→14:39)
--- NOTE | 2018-10-16 13:23 | PDINTPN ---
[facility] Progress Note Assessment/Plan: 82 M with DM found down at home for an undetermined period with severe hyperglycemia. As best as we understand, he was in a normal state of health but was found collapsed next to his bed unresponsive. On arrival to the ED he was intubated for a GCS of only 3 and found to have a glucose of 1100. He was started on the DKA protocol and transferred to the ICU where he was found to have profound weakness/paresis of his RUE. A stroke alert was called but his second head CT in 4 hours and CTA head and neck were both negative. In addition , his EKG showed complete heart block and temporary pacer wires were urgently placed. He was febrile, so empiric antibiotics were started. * DKA- this has resolved and he transitioned from the protocol. Hgb A1C is >10 % suggesting poor group home control. Because of consistently high baseline glucose, his lantus was increased 10/15, but I think he received two doses of lantus- 20 units at 0730 and 22 units at 2130- resultig in hypoglycemia this AM to 48. He was treated with D50 and subsequent rise and has maintained normoglycemia today. Hold lantus for now and use SSI only. * Encephalopathy- Initially, suspected a combination of severe DKA and medications related to ventilator, which had been improved though he became more restless with time. We considered etoh wd, but after further discussion with family that seems unlikely. I recommended avoiding ativa and increasing his zyprexa dose but that did not occur and again received ativan last pm. CONI has subsequently been dc'd, but he remains more lethargic today than previously and has not required Zyprexa today. He has slowly shown mild improvement today, which has been exacerbated by a) hypoglycemia and b) ativan. * Acute respiratory failure with hypoxia- resolved * Atrial fib/flutter and previous Complete heart block- he was apparently paced some overnight 10/11, but has not required it since. Remains in afib/flutter but no CHB at this time. Because of documented periods of severe HTN I was going to start an esmolol drip but discussed with cards so alternately started digoxin and NTP. No plans for permanent pacer * RUE weakness- resolved. an MRI is still pending, but would favor waiting since it would likely require sedation to achieve an adequate study and will not likely have an immediate impact on management. * Rhabdomyolysis- mild but CK peaked. Not significant enough to effect KYLE or UE weakness; now resolved * KYLE- mostly from dehydration and DKA (not rhabdo). Creatinine is falling and uop is appropriate. Resolved * Subjective: again treated with ativan last pm for agitation despite recommendations to avoid and asked to increase Zyprexa dose (though I did not physically order it) . Objective: Vital Signs Temp Pulse Resp BP Pulse Ox 37.6 C 119 H 25 H 149/56 H 94 10/16/18 07:51 10/16/18 11:19 10/16/18 11:19 10/16/18 11:19 10/16/18 11:19 Microbiology 10/11/18 14:30 - Final Sputum, Induced/Suctioned Laboratory Results 10/16/18 10:30 10/16/18 10:30 10/15/18 10/16/18 10/17/18 05:59 05:59 05:59 Intake Total 1920 2721 Output Total 1000 1350 Balance 920 1371 PT 15.1 SEC (12.0-15.0) H 10/11/18 05:13 INR 1.17 (0.83-1.16) H 10/11/18 05:13 Physical Exam - Physical Exam General Appearance: mild distress, obtunded EENT: PERRL/EOMI, pharynx normal, No scleral icterus (R), No scleral icterus (L) Neck: supple Respiratory: lungs clear, normal breath sounds, decreased breath sounds, No respiratory distress, No accessory muscle use, No rhonchi Cardiac/Chest: tachycardia, irregularly irregular, No edema, No JVD Abdomen: non-tender, soft, No distended Skin: normal color, warm/dry, No cyanosis Lymphatic: no adenopathy Extremities: No pedal edema Neuro/Psych: cognition abnormalities, disoriented to person, disoriented to place, disoriented to time, No alert, 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
[2018-10-16] MEDS ORDERED: INSULIN GLARGINE 100 UNITS/ML UNIT SC SCH (21:00)
[2018-10-17 05:14] LABS: PLATELET COUNT 195 10^3/uL (150-400)
[2018-10-17] MEDS: INSULIN LISPRO 100 UNIT/ML SC SCH ×3 (07:44→17:57)
[2018-10-17] MEDS: NITROGLYCERIN 2% 1 GM PACKET TP SCH ×3 (07:44→17:57)
[2018-10-17] MEDS: PIPERACILLIN/TAZO 4.5 GM/DEX 100 ML IV SCH ×3 (08:23→17:57)
[2018-10-17] MEDS: ENOXAPARIN 100 MG/ML SYR SC SCH ×2 (08:24→21:20)
[2018-10-17] MEDS ORDERED: INSULIN GLARGINE 100 UNITS/ML UNIT SC SCH (09:00)
[2018-10-17] MEDS ORDERED: FUROSEMIDE 20 MG/2 ML VIAL IV ONE (09:45)
[2018-10-17] MEDS: VANCOMYCIN 1.25 GM in NS 250 ML IV SCH ×2 (10:20→21:53)
[2018-10-17] MEDS: FAMOTIDINE 20 MG TAB PO SCH (10:22)
[2018-10-17] MEDS: THIAMINE HCL 100 MG TAB PO SCH (10:22)
[2018-10-17] MEDS: OLANZapine DISINTEGR 10 MG TAB PO SCH ×2 (10:22→21:20)
[2018-10-17] MEDS: DIGOXIN 500 MCG/2 ML AMP IVP SCH (10:23)
[2018-10-17] MEDS ORDERED: ALTEPLASE 2 MG VIAL IVP PRN (10:35)
--- NOTE | 2018-10-17 11:12 | PDCARPN ---
Cardiology Progress Note Assessment/Plan: 82 year old male admitted 10/11 with DKA. Early in hospital course he was diagnosed with atrial fibrillation and complete heart block. In the first 24 hours he did demonstrate bradycardia into the 40s and had a temporary pacemaker wire inserted. Temporary pacer was DC'd 2 days later when he began to develop a rapid ventricular response. "Atrial Fibrillation": In reviewing all of his ECGs during this hospital stay his rhythm appears to be more consistent with atrial tachycardia or atypical atrial flutter with variable AV conduction. Control of his ventricular rate has improved significantly with the addition of digoxin. - Continue digoxin for now. - Continue systemic anticoagulation for stroke prophylaxis. - Resume home dose of beta lavelle when he is able to take PO meds. - Consider cardioversion prior to discharge. - I expect that he will NOT require permanent pacemaker implantation. Hypertension: Currently receiving IV enalaprilat and/or hydralazine. - Reconstitute home antihypertensive regimen when able. 10/17/18 11:09 Subjective: Unable to voice specific complaints. Reviewed/Discussed With: family Objective: Vital Signs (8 Hrs) Temp Pulse Resp BP Pulse Ox 10/17/18 10:23 78 10/17/18 07:40 37.1 C 72 24 H 161/106 H 94 10/17/18 03:55 37.1 C 87 19 153/71 H 96 Intake/Output (24 Hrs) 10/16/18 10/17/18 10/18/18 05:59 05:59 05:59 Intake Total 2721 937 Output Total 1350 1950 1350 Balance 1371 -1013 -1350 Intake: Oral (ml) 700 IV Intake (ml) 850 IV Infused (ml) 1171 937 1/2 Ns 1,000 ml @ 75 mls/ 771 675 hr IV CONT JACOB Rx#: [id number] POTASSIUM Cl (KCl) 100 ml 400 262 @ 100 mls/hr IV Q1H JACOB Rx#:[id number] Output: Urine (ml) 1350 1950 1350 Catheter 1350 1950 1350 Other: Weight 90.8 kg 91.4 kg 90.4 kg Intake Quantity Yes Sufficient Result Diagrams: 10/17/18 04:54 10/17/18 04:54 - Physical Exam Constitutional: no apparent distress Eyes: anicteric sclera Ears, Nose, Mouth, Throat: moist mucous membranes Cardiovascular: no murmurs, no gallops, irregularly irregular Respiratory: clear to auscultate bilat (anteriorly) Gastrointestinal: normoactive bowel sounds, no tenderness, no masses Skin: other (2+ LE edema) Neurologic: other (opens eyes to voice) Psychiatric: not anxious ICD10 Worksheet Patient Problems: Problems Problem Status Onset DKA (diabetic ketoacidoses) Acute Hyperglycemia Acute Respiratory failure Acute Unresponsive Acute Closed comminuted intertrochanteric fracture of femur Acute
[2018-10-17] MEDS: FAMOTIDINE 20 MG/NACL 50 ML IV SCH ×2 (11:35→21:20)
[2018-10-17] MEDS ORDERED: PIPERACILLIN/TAZO 4.5 GM/DEX 100 ML IV SCH (12:00)
[2018-10-17] MEDS: 1/2 NS 1,000 ML IV SCH (13:58)
--- NOTE | 2018-10-17 14:43 | PDINTPN ---
[facility] Progress Note Assessment/Plan: 82 M with DM found down at home for an undetermined period with severe hyperglycemia. As best as we understand, he was in a normal state of health but was found collapsed next to his bed unresponsive. On arrival to the ED he was intubated for a GCS of only 3 and found to have a glucose of 1100. He was started on the DKA protocol and transferred to the ICU where he was found to have profound weakness/paresis of his RUE. A stroke alert was called but his second head CT in 4 hours and CTA head and neck were both negative. In addition , his EKG showed complete heart block and temporary pacer wires were urgently placed. He was febrile, so empiric antibiotics were started. * DKA- this has resolved and he transitioned from the protocol. Hgb A1C is >10 % suggesting poor chcf control. Because of consistently high baseline glucose, his lantus was increased 10/15, but I think he received two doses of lantus- 20 units at 0730 and 22 units at 2130- resulting in hypoglycemia on to 48. He was treated with D50 and subsequent rise and has maintained normoglycemia. Held lantus for now and using SSI only. Remains stable * Encephalopathy- Initially, suspected a combination of severe DKA and medications related to ventilator on admission, which had been improved though he became more restless with time. We considered etoh wd, but after further discussion with family that seems unlikely. I recommended avoiding ativan and increasing his zyprexa dose but that did not occur and again received ativan . CIWA has subsequently been dc'd,. He has shown mild improvement later 10/16, which has been exacerbated by a) hypoglycemia and b) ativan. Much better today though not normal. * Acute respiratory failure with hypoxia- resolved * Atrial fib/flutter and previous Complete heart block- he was apparently paced some overnight 10/11, but has not required it since. Remains in afib/flutter but no CHB at this time. Cards started digoxin and NTP with much better control. No plans for permanent pacer at this time * RUE weakness- resolved. an MRI is still pending, but would favor waiting since it would likely require sedation to achieve an adequate study and will not likely have an immediate impact on management. * Rhabdomyolysis- mild but CK peaked. Not significant enough to effect KYLE or UE weakness; now resolved * KYLE- mostly from dehydration and DKA (not rhabdo). Creatinine is falling and uop is appropriate. Resolved * 10/17/18 14:38 Subjective: more alert today though still confused. No complaints Objective: Vital Signs Temp Pulse Resp BP Pulse Ox 36.6 C 78 18 151/67 H 94 10/17/18 11:32 10/17/18 11:32 10/17/18 11:32 10/17/18 11:32 10/17/18 11:32 Microbiology 10/11/18 14:30 - Final Sputum, Induced/Suctioned 10/11/18 15:30 Blood Culture - Final Blood 10/11/18 15:15 Blood Culture - Final Blood Laboratory Results 10/17/18 04:54 10/17/18 04:54 10/16/18 10/17/18 10/18/18 05:59 05:59 05:59 Intake Total 2721 937 Output Total 1350 1950 2600 Balance 1371 -1013 -2600 PT 15.1 SEC (12.0-15.0) H 10/11/18 05:13 INR 1.17 (0.83-1.16) H 10/11/18 05:13 Physical Exam - Physical Exam General Appearance: WD/WN, alert, no apparent distress EENT: PERRL/EOMI Neck: supple Respiratory: lungs clear, normal breath sounds, decreased breath sounds, No respiratory distress, No accessory muscle use Cardiac/Chest: edema, tachycardia, irregularly irregular, No JVD Abdomen: non-tender, soft, No distended Skin: normal color, warm/dry, No cyanosis Lymphatic: no adenopathy Extremities: No pedal edema Neuro/Psych: alert, cognition abnormalities, No oriented x 3 (but knew [facility]), 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
--- NOTE | 2018-10-17 16:43 | HOSPPROG ---
Hospitalist Progress Note Assessment/Plan: 82yo M with h/o IDDM, CKD stage 2 found unresponsive at home. In DKA, intubated in ED for GCS of 3, now extubated and DKA resolved. 1. DKA: Resolved. restarted on Lantus with uptitration but patient became hypoglycemic. Patient has been altered now for about the last 2 days likely secondary to Ativan given for CIWA. Lantus held until patient taking better p.o.. - Restarted lantus at 15HS 20 AM and patient still with substantial hyperglycemia. -Hold lantus until taking adequate po -Continue SSI -A1c was over 10% 2. Fever: Resolved. No obvious source, possibly aspiration pneumonitis? Procalcitonin equivocal - Stopping antibiotics (zosyn), follow cultures (GBS grew out) patient with no evidence of infection currently 3. Rhabdomyolysis: Mild, CK now down-trending. 4. KYLE: Resolved. Cr improved with hydration, correction of elevated glucose. 5. Acute respiratory failure: Resolved. Now extubated and on room air. 6. Acute metabolic encephalopathy: D/t severe acidemia/metabolic derangements + sedating meds while on vent. Still not at baseline but better - Avoid centrally acting meds, allow to wake up -Neurology has consulted, recommends MRI when able. -some concern for possible Etoh withdrawal, -no ativan -scheduled zyprexa 7. Right arm weakness: Now resolved. Likely focal neuro deficit from DKA. Stroke alert called AM 10/11 (negative work up thus far) - Brain MRI pending compatibility of temp pacer wires with MRI 8. Complete heart block: Thought to be secondary to metabolic derangements. - s/p temporary pacer wire by cardiology however he is not requiring this any further, which indicates that CHB was likely driven by metabolic disturbances and unlikely to be precipitant of DKA - cardiology following, monitor need for permanent pacemaker device -continue digoxin -start nitropaste for BP control 9. Hyperkalemia: Resolved Multifactorial, now normalized. 10. Atrial fibrillation: New diagnosis. Rates controlled. TTE with normal valves , chamber sizes. - Will need to discuss anticoagulation moving forward 11. HTN: BP remains elevated - Holding atenolol (CHB) and lisinopril (hyperK) for now - Hydralazine 20mg IV Q6h PRN -add nitropaste per cards 12. Hypernatremia: Monitor. VTE ppx: LMWH GI ppx: H2RA Diet: dysphagia, nectar thick liquids per [employer] eval Code: full Dispo: Remain inpatient. I spent a total of 40 minutes of critical care time on the management of this patient with over half spent on direct patient care. Objective: Vital Signs Temp Pulse Resp BP Pulse Ox 37.1 C 71 23 H 166/65 H 93 10/17/18 15:20 10/17/18 15:20 10/17/18 15:20 10/17/18 15:20 10/17/18 15:20 Microbiology 10/11/18 14:30 - Final Sputum, Induced/Suctioned 10/11/18 15:30 Blood Culture - Final Blood 10/11/18 15:15 Blood Culture - Final Blood Laboratory Results 10/17/18 04:54 10/17/18 04:54 10/16/18 10/17/18 10/18/18 05:59 05:59 05:59 Intake Total 2721 937 Output Total 1350 1950 2600 Balance 1371 -1013 -2600 PT 15.1 SEC (12.0-15.0) H 10/11/18 05:13 INR 1.17 (0.83-1.16) H 10/11/18 05:13 - Physical Exam Constitutional: no apparent distress, appears nourished, not in pain Eyes: PERRL, anicteric sclera, EOMI Ears, Nose, Mouth, Throat: moist mucous membranes, hearing normal, ears appear normal, no oral mucosal ulcers Cardiovascular: regular rate and rhythym, no murmur, rub, or gallop Respiratory: no respiratory distress, no rales or rhonchi, clear to auscultation Gastrointestinal: normoactive bowel sounds, soft, non-tender abdomen, no palpable masses Genitourinary: no bladder fullness, no bladder tenderness, no renal bruits Skin: no rashes or abrasions, no fluctuance, no induration Musculoskeletal: generalized weakness Neurologic: weakness Psychiatric: encephalopathic, poor judgement, poor memory Lymph, Heme, Immunologic: no cervical LAD, no supraclavicular LAD ICD10 Worksheet Patient Problems: Problems Problem Status Onset DKA (diabetic ketoacidoses) Acute Hyperglycemia Acute Respiratory failure Acute Unresponsive Acute Closed comminuted intertrochanteric fracture of femur Acute
[2018-10-18] MEDS: PIPERACILLIN/TAZO 4.5 GM/DEX 100 ML IV SCH ×2 (00:20→06:53)
[2018-10-18] MEDS: NITROGLYCERIN 2% 1 GM PACKET TP SCH ×3 (01:23→12:07)
[2018-10-18 05:37] LABS: PLATELET COUNT 178 10^3/uL (150-400)
[2018-10-18] MEDS: FAMOTIDINE 20 MG/NACL 50 ML IV SCH (08:15)
[2018-10-18] MEDS: ENOXAPARIN 100 MG/ML SYR SC SCH ×2 (08:22→20:30)
[2018-10-18] MEDS: OLANZapine DISINTEGR 10 MG TAB PO SCH (08:23)
[2018-10-18] MEDS: VANCOMYCIN 1.25 GM in NS 250 ML IV SCH (08:45)
[2018-10-18] MEDS: INSULIN LISPRO 100 UNIT/ML SC SCH ×3 (10:06→17:53)
--- NOTE | 2018-10-18 10:28 | HOSPPROG ---
Hospitalist Progress Note Assessment/Plan: 82yo M with h/o IDDM, CKD stage 2 found unresponsive at home. In DKA, intubated in ED for GCS of 3, now extubated and DKA resolved but with persistent delirium/ confusion/encephalopathy. 1. DKA: Resolved. restarted on Lantus with uptitration but patient became hypoglycemic. Patient has been altered now for about the last 2 days likely secondary to Ativan given for CIWA along with zyprexa. Lantus held until patient taking better p.o.. -Hold lantus until taking adequate po -sugars starting to rise, will increase to higher scale. -Continue SSI -A1c was over 10% -hopefully start on diet pending ADMINISTRATION INTERN eval today 2. Fever: Resolved. No obvious source, possibly aspiration pneumonitis? Procalcitonin equivocal - Stopping antibiotics (zosyn,vanc), follow cultures (GBS grew out) patient with no evidence of infection currently -repeat procal mildly elevated -still no convincing evidence that patient has an active infection. would hold abx and monitor for a recrudescence of infection. 3. Rhabdomyolysis: Mild, CK now down-trending. 4. KYLE: Resolved. Cr improved with hydration, correction of elevated glucose. 5. Acute respiratory failure: Resolved. Now extubated and on room air. 6. Acute metabolic encephalopathy: D/t severe acidemia/metabolic derangements + sedating meds while on vent. Still not at baseline but better - Avoid centrally acting meds, allow to wake up -Neurology has consulted, recommends MRI when able. -no ativan -stop zyprexa, 7. Right arm weakness: Now resolved. Likely focal neuro deficit from DKA. Stroke alert called AM 10/11 (negative work up thus far) - Brain MRI pending compatibility of temp pacer wires with MRI 8. Complete heart block: Thought to be secondary to metabolic derangements. - s/p temporary pacer wire by cardiology however he is not requiring this any further, which indicates that CHB was likely driven by metabolic disturbances and unlikely to be precipitant of DKA - cardiology following, monitor need for permanent pacemaker device -continue digoxin -would stop nitropaste 9. Hyperkalemia: Resolved Multifactorial, now normalized. 10. Atrial fibrillation: New diagnosis. Rates controlled. TTE with normal valves , chamber sizes. - Will need to discuss anticoagulation moving forward -on treatment dose of lovenox 11. HTN: BP remains elevated - Holding atenolol (CHB) and lisinopril (hyperK) for now - Hydralazine 20mg IV Q6h PRN -add nitropaste per cards if pressures allow 12. Hypernatremia: Resolved on 08/25 NS. VTE ppx: LMWH at 1mg/kg bid GI ppx: H2RA Diet: NPO pending kamran gerard. Code: full Dispo: Remain inpatient. I spent a total of 70 minutes of critical care time on the management of this patient with over half spent on direct patient care. Objective: Vital Signs Temp Pulse Resp BP Pulse Ox 36.5 C 86 20 102/69 93 10/18/18 07:45 10/18/18 07:41 10/18/18 07:41 10/18/18 07:41 10/18/18 07:41 Microbiology 10/11/18 14:30 - Final Sputum, Induced/Suctioned Sputum Culture - Final Strep Agalactiae Group B Burkholderia Gladioli Stenotrophomonas Maltophilia 10/11/18 15:30 Blood Culture - Final Blood 10/11/18 15:15 Blood Culture - Final Blood Laboratory Results 10/18/18 05:25 10/18/18 08:20 10/17/18 10/18/18 10/19/18 05:59 05:59 05:59 Intake Total 937 597 Output Total 1950 2850 Balance -1013 -2253 PT 15.1 SEC (12.0-15.0) H 10/11/18 05:13 INR 1.17 (0.83-1.16) H 10/11/18 05:13 - Physical Exam Constitutional: no apparent distress, appears nourished, not in pain Eyes: PERRL, anicteric sclera, EOMI Ears, Nose, Mouth, Throat: moist mucous membranes, hearing normal, ears appear normal, no oral mucosal ulcers Cardiovascular: regular rate and rhythym, no murmur, rub, or gallop, edema Respiratory: no respiratory distress, no rales or rhonchi, clear to auscultation Gastrointestinal: normoactive bowel sounds, soft, non-tender abdomen, no palpable masses Genitourinary: no bladder fullness, no bladder tenderness, no renal bruits Skin: no rashes or abrasions, no fluctuance, no induration Musculoskeletal: generalized weakness Neurologic: other (encephalopathic. not able to fully participate. Does not seem to ahve a focal deficit or any right arm weakness. ) Psychiatric: encephalopathic, poor insight, poor judgement, poor memory Lymph, Heme, Immunologic: no cervical LAD, no supraclavicular LAD ICD10 Worksheet Patient Problems: Problems Problem Status Onset DKA (diabetic ketoacidoses) Acute Hyperglycemia Acute Respiratory failure Acute Unresponsive Acute Closed comminuted intertrochanteric fracture of femur Acute
--- NOTE | 2018-10-18 10:35 | PDCARPN ---
Cardiology Progress Note Assessment/Plan: 82 year old male admitted 10/11 with DKA. Early in hospital course he was diagnosed with atrial fibrillation and complete heart block. In the first 24 hours he did demonstrate bradycardia into the 40s and had a temporary pacemaker wire inserted. Temporary pacer was DC'd 2 days later when he began to develop a rapid ventricular response. "Atrial Fibrillation": In reviewing all of his ECGs during this hospital stay his rhythm appears to be more consistent with atrial tachycardia or atypical atrial flutter with variable AV conduction. Control of his ventricular rate has improved significantly with the addition of digoxin. - Repeat ECG today as monitor shows regular rhythm in the 90s with possible P- waves (? returned to NSR) - Continue digoxin for now. - Continue systemic anticoagulation for stroke prophylaxis. - Resume home dose of beta lavelle when he is able to take PO meds. - Consider cardioversion prior to discharge. - I expect that he will NOT require permanent pacemaker implantation. Diastolic CHF: Has mild LE edema. No pulmonary edema on CXR. BNP 8970 on admission. Down to 2900 today. - IV furosemide PRN. Hypertension: Currently receiving IV enalaprilat and/or hydralazine. - Reinstitute home antihypertensive regimen when able. 10/18/18 10:39 Subjective: No specific complaints other than being thirsty. Reviewed/Discussed With: family Objective: Vital Signs (8 Hrs) Temp Pulse Resp BP Pulse Ox 10/18/18 07:45 36.5 C 10/18/18 07:41 86 20 102/69 93 10/18/18 04:00 84 18 164/67 H 95 Intake/Output (24 Hrs) 10/17/18 10/18/18 10/19/18 05:59 05:59 05:59 Intake Total 937 597 Output Total 1950 2850 Balance -1013 -2253 Intake: IV Infused (ml) 937 597 1/2 Ns 1,000 ml @ 75 mls/ 675 597 hr IV CONT JACOB Rx#: [id number] POTASSIUM Cl (KCl) 100 ml 262 @ 100 mls/hr IV Q1H JACOB Rx#:[id number] Output: Urine (ml) 1950 2850 Catheter 1950 2850 Other: Weight 91.4 kg 90.4 kg 67.5 kg Number of Stools Catheter 0 Result Diagrams: 10/18/18 05:25 10/18/18 08:20 - Physical Exam Constitutional: no apparent distress Eyes: anicteric sclera Ears, Nose, Mouth, Throat: moist mucous membranes Cardiovascular: regular rate and rhythm, no murmurs, no gallops Respiratory: clear to auscultate bilat Gastrointestinal: normoactive bowel sounds, no tenderness, no masses Skin: other (1-2+ LE edema) Neurologic: other (more alert today but still with some delerium) ICD10 Worksheet Patient Problems: Problems Problem Status Onset DKA (diabetic ketoacidoses) Acute Hyperglycemia Acute Respiratory failure Acute Unresponsive Acute Closed comminuted intertrochanteric fracture of femur Acute
[2018-10-18] MEDS: THIAMINE HCL 100 MG TAB PO SCH (12:07)
[2018-10-18] MEDS: DIGOXIN 500 MCG/2 ML AMP IVP SCH (13:34)
--- NOTE | 2018-10-18 15:16 | ASMTCMCOM ---
CM Note CM Note Notes: Pt's birthday is tomorrow. Family meeting held today, per request of family, with pt's daughters Ivett ([phone]) and Alondra ([phone]) as well as CM, Spiritual Care, and Ski Maker. Ivett was concerned that she lives out of town and wanted to ask questions before heading back to [place]. Support was provided to family. They are understanding of pt's progress but continue to be overwhelmed. Family reports they are appreciative of the care he is getting here, including having a sitter. Family continues to request Podiatry consult. RN and MD are aware. Family had questions about SNFs that are contracted with [facility], CM provided list to Alondra after meeting. CM initiated SNF referral through [facility]. CM to follow and continue to keep family updated. Plan: SNF Date Signed: 10/18/2018 03:12 PM Electronically Signed By:SHIRLENE Mcmahan
[2018-10-18] MEDS ORDERED: PROTOCOL POTASSIUM 1 DOSE MISC PRN (16:11)
--- NOTE | 2018-10-18 17:26 | PDINTPN ---
Gas Maker Helper Progress Note Assessment/Plan: Assessment: 82 M with DM found down at home for an undetermined period with severe hyperglycemia. As best as we understand, he was in a normal state of health but was found collapsed next to his bed unresponsive. On arrival to the ED he was intubated for a GCS of only 3 and found to have a glucose of 1100. He was started on the DKA protocol and transferred to the ICU where he was found to have profound weakness/paresis of his RUE. A stroke alert was called but his second head CT in 4 hours and CTA head and neck were both negative. In addition , his EKG showed complete heart block and temporary pacer wires were urgently placed. He was febrile, so empiric antibiotics were started. * DKA- this has resolved and he transitioned from the protocol. Hgb A1C is >10 % suggesting poor mcfp control. Because of consistently high baseline glucose, his lantus was increased 10/15, but he received two doses of lantus- 20 units at 0730 and 22 units at 2130- resulting in hypoglycemia on 10/16 to 48. He was treated with D50 and subsequent rise and has maintained normoglycemia. Held lantus for now and using SSI only. BSs now high since starting PO, is getting SSI. * Encephalopathy- Initially, suspected a combination of severe DKA and medications related to ventilator on admission, which had been improved though he became more restless with time. We considered etoh wd, but after further discussion with family that seems unlikely. Dr. Barr recommended avoiding ativan and increasing his zyprexa dose but that did not occur and again received ativan 10/16. [place] has subsequently been dc'd,. He has shown mild improvement later 10/16, which has been exacerbated by a) hypoglycemia and b) ativan. Continues to improve * Acute respiratory failure with hypoxia- resolved * Atrial fib/flutter and previous Complete heart block- he was apparently paced some overnight 10/11, but has not required it since. Remains in afib/flutter but no CHB at this time. Cards started digoxin and NTP with much better control. No plans for permanent pacer at this time * RUE weakness- resolved. an MRI is still pending, but would favor waiting since it would likely require sedation to achieve an adequate study and will not likely have an immediate impact on management. * Rhabdomyolysis- mild but CK peaked. Not significant enough to effect KYLE or UE weakness; now resolved * KYLE- mostly from dehydration and DKA (not rhabdo). Creatinine is falling and uop is appropriate. Resolved Plan: Increase activity Lasix for edema. Continue activity as tolerated and frequent orientation during the day. Melatonin and low stimulation at night. Avoid benzos and other sedatives. Consider Lasix for edema depending on renal function/vitals tomorrow. 10/18/18 17:45 10/18/18 17:46 10/18/18 17:46 Subjective: Feels okay. Quite weak. Denies pain. Objective: Vital Signs Temp Pulse Resp BP Pulse Ox 36.9 C 90 20 133/43 H 98 10/18/18 16:00 10/18/18 16:00 10/18/18 16:00 10/18/18 16:00 10/18/18 16:00 Microbiology 10/11/18 14:30 - Final Sputum, Induced/Suctioned Sputum Culture - Final Strep Agalactiae Group B Burkholderia Gladioli Stenotrophomonas Maltophilia Laboratory Results 10/18/18 05:25 10/18/18 08:20 10/17/18 10/18/18 10/19/18 05:59 05:59 05:59 Intake Total 937 597 Output Total 1950 2850 Balance -1013 -2253 PT 15.1 SEC (12.0-15.0) H 10/11/18 05:13 INR 1.17 (0.83-1.16) H 10/11/18 05:13 Physical Exam - Physical Exam General Appearance: alert EENT: normal ENT inspection Neck: normal inspection Respiratory: lungs clear, normal breath sounds, No respiratory distress Cardiac/Chest: regular rate, rhythm, edema (2+ right lower extremity, 1+ left lower extremity) Abdomen: normal bowel sounds, non-tender Skin: normal color, warm/dry Extremities: normal inspection Neuro/Psych: alert, normal mood/affect, No motor weakness ICD10 Worksheet Patient Problems: Problems Problem Status Onset DKA (diabetic ketoacidoses) Acute Hyperglycemia Acute Respiratory failure Acute Unresponsive Acute Closed comminuted intertrochanteric fracture of femur Acute
[2018-10-18] MEDS: FAMOTIDINE 20 MG TAB PO SCH (20:15)
[2018-10-18] MEDS: MELATONIN 3 MG TAB PO SCH (20:15)
[2018-10-19 06:04] LABS: PLATELET COUNT 231 10^3/uL (150-400)
[2018-10-19] MEDS: ENOXAPARIN 100 MG/ML SYR SC SCH ×2 (07:26→20:34)
[2018-10-19] MEDS: INSULIN LISPRO 100 UNIT/ML SC SCH ×3 (07:26→19:13)
[2018-10-19] MEDS: THIAMINE HCL 100 MG TAB PO SCH (07:26)
[2018-10-19] MEDS: FAMOTIDINE 20 MG TAB PO SCH ×2 (07:26→20:34)
[2018-10-19] MEDS: DIGOXIN 500 MCG/2 ML AMP IVP SCH (10:16)
[2018-10-19] MEDS: INSULIN GLARGINE 100 UNITS/ML UNIT SC SCH (11:33)
[2018-10-19] MEDS ORDERED: ALBUMIN 25% 200 ML IV ONE (13:11)
--- NOTE | 2018-10-19 13:19 | PDINTPN ---
Exhibits Manager Progress Note Assessment/Plan: Assessment: 82 M with DM found down at home for an undetermined period with severe hyperglycemia. As best as we understand, he was in a normal state of health but was found collapsed next to his bed unresponsive. On arrival to the ED he was intubated for a GCS of only 3 and found to have a glucose of 1100. He was started on the DKA protocol and transferred to the ICU where he was found to have profound weakness/paresis of his RUE. A stroke alert was called but his second head CT in 4 hours and CTA head and neck were both negative. In addition , his EKG showed complete heart block and temporary pacer wires were urgently placed. He was febrile, so empiric antibiotics were started. * DKA- this has resolved and he transitioned from the protocol. Hgb A1C is >10 % suggesting poor chcf control. Because of consistently high baseline glucose, his lantus was increased 10/15, but he received two doses of lantus- 20 units at 0730 and 22 units at 2130- resulting in hypoglycemia on 10/16 to 48. He was treated with D50 and subsequent rise and has maintained normoglycemia. Held lantus for now and using SSI ("high" scale) only, but blood sugars still in 400s * Encephalopathy- Initially, suspected a combination of severe DKA and medications related to ventilator on admission, which had been improved though he became more restless with time. We considered etoh wd, but after further discussion with family that seems unlikely. Dr. Barr recommended avoiding ativan and increasing his zyprexa dose but that did not occur and again received ativan 10/16. [place] has subsequently been dc'd,. He has shown mild improvement later 10/16, which has been exacerbated by a) hypoglycemia and b) ativan. Continues to improve * Acute respiratory failure with hypoxia- resolved * Atrial fib/flutter and previous Complete heart block- he was apparently paced some overnight 10/11, but has not required it since. Remains in afib/flutter but no CHB at this time. Cards started digoxin and NTP with much better control. No plans for permanent pacer at this time * RUE weakness- resolved. an MRI is still pending, but would favor waiting since it would likely require sedation to achieve an adequate study and will not likely have an immediate impact on management. * Rhabdomyolysis- mild but CK peaked. Not significant enough to effect KYLE or UE weakness; now resolved * KYLE- mostly from dehydration and DKA (not rhabdo). Creatinine was down, now up today. He has good urine output and significant edema Plan: Increase activity Continue activity as tolerated and frequent orientation during the day. Melatonin and low stimulation at night. Avoid benzos and other sedatives. Give albumin for edema in the setting of increased creatinine and limited p.o. fluid intake due to dysphagia Resumed Lantus this morning. Increase insulin to very high scale. Hopefully can resume metformin soon to reduce insulin needs and blood glucose Probably can transfer to telemetry or med/surg 10/19/18 13:19 10/19/18 13:20 Subjective: A bit more alert. Strength improved. Denies pain. Objective: Vital Signs Temp Pulse Resp BP Pulse Ox 36.8 C 72 18 170/131 H 97 10/19/18 08:10 10/19/18 11:51 10/19/18 11:51 10/19/18 11:51 10/19/18 11:51 Microbiology 10/11/18 14:30 - Final Sputum, Induced/Suctioned Sputum Culture - Final Strep Agalactiae Group B Burkholderia Gladioli Stenotrophomonas Maltophilia Laboratory Results 10/19/18 05:45 10/19/18 05:45 10/18/18 10/19/18 10/20/18 05:59 05:59 05:59 Intake Total 597 2080 Output Total 2850 580 Balance -2253 1500 PT 15.1 SEC (12.0-15.0) H 10/11/18 05:13 INR 1.17 (0.83-1.16) H 10/11/18 05:13 Physical Exam - Physical Exam General Appearance: alert, no apparent distress EENT: normal ENT inspection Neck: normal inspection Respiratory: lungs clear, normal breath sounds Cardiac/Chest: regular rate, rhythm, No edema (2+ edema) Abdomen: normal bowel sounds, non-tender Skin: normal color, warm/dry Extremities: normal inspection Neuro/Psych: alert, normal mood/affect, No oriented x 3, No motor weakness ICD10 Worksheet Patient Problems: Problems Problem Status Onset DKA (diabetic ketoacidoses) Acute Hyperglycemia Acute Respiratory failure Acute Unresponsive Acute Closed comminuted intertrochanteric fracture of femur Acute
--- NOTE | 2018-10-19 15:12 | PDCARPN ---
Cardiology Progress Note Assessment/Plan: 82 year old male admitted 10/11 with DKA. Early in hospital course he was diagnosed with atrial fibrillation and complete heart block. In the first 24 hours he did demonstrate bradycardia into the 40s and had a temporary pacemaker wire inserted. Temporary pacer was DC'd 2 days later when he began to develop a rapid ventricular response. Atypical (clockwise) Atrial Flutter vs Atrial Tachycardia: Atypical atrial flutter seems most likely. (The cycle length between the "P"-waves in lead V1 is 200 ms, i.e.- a rate of 300 per min which is very characteristic of flutter. ) Ventricular rate is adequately controlled. - Continue digoxin for now. - Continue systemic anticoagulation for stroke prophylaxis. Could continue LMWH or switch to Eliquis 5mg BID - Resume home dose of beta lavelle when he is able to take PO meds. - Plan for cardioversion or Thursday. - I expect that he will NOT require permanent pacemaker implantation. Diastolic CHF: LE edema persists. No pulmonary edema on CXR. BNP 8970 on admission. Down to 2900 on 10/18. - IV furosemide PRN. Hypertension: Currently receiving IV enalaprilat and/or hydralazine. - Reinstitute home antihypertensive regimen when able. 10/19/18 15:16 Subjective: No specific complaints. Reviewed/Discussed With: family Objective: Vital Signs (8 Hrs) Temp Pulse Resp BP Pulse Ox 10/19/18 11:51 72 18 170/131 H 97 10/19/18 10:16 72 10/19/18 08:10 36.8 C 72 21 H 114/34 L 99 Intake/Output (24 Hrs) 10/18/18 10/19/18 10/20/18 05:59 05:59 05:59 Intake Total 597 2080 Output Total 2850 580 Balance -2253 1500 Intake: Oral (ml) 500 IV Infused (ml) 597 1580 1/2 Ns 1,000 ml @ 75 mls/ 597 1580 hr IV CONT JACOB Rx#: [id number] Output: Urine (ml) 2850 580 Catheter 2850 580 Other: Weight 90.4 kg 89.6 kg Number of Stools Catheter 0 Result Diagrams: 10/19/18 05:45 10/19/18 05:45 - Physical Exam Constitutional: no apparent distress Eyes: anicteric sclera Ears, Nose, Mouth, Throat: moist mucous membranes Cardiovascular: no murmurs, irregularly irregular Respiratory: clear to auscultate bilat Gastrointestinal: normoactive bowel sounds, no tenderness, no masses Skin: other (2+ LE edema) Psychiatric: not anxious ICD10 Worksheet Patient Problems: Problems Problem Status Onset Unresponsive Acute Respiratory failure Acute Hyperglycemia Acute DKA (diabetic ketoacidoses) Acute Closed comminuted intertrochanteric fracture of femur Acute
--- NOTE | 2018-10-19 15:34 | HOSPPROG ---
Hospitalist Progress Note Assessment/Plan: 83 yo M a/w DKA dka: resolved a1c indicative of poor control lantus 30 w very high dose lispro ss AF: vs atypical aflutter on dig, LMWH will transition to po meds following approval from FERMENTATION SCIENTIST KYLE: suspect intravasc vol depletion agree w albumin X 1 CHB: was temporarily paced, appears to have resolved appreciate cardiology input encephalopathy: improving moreau: remove it is his birthday proph: anticoagulated dispo; to pcu Subjective: case d/w dr canales. today is his birthday Objective: Vital Signs Temp Pulse Resp BP Pulse Ox 36.8 C 72 18 170/131 H 97 10/19/18 08:10 10/19/18 11:51 10/19/18 11:51 10/19/18 11:51 10/19/18 11:51 Microbiology 10/11/18 14:30 - Final Sputum, Induced/Suctioned Sputum Culture - Final Strep Agalactiae Group B Burkholderia Gladioli Stenotrophomonas Maltophilia Laboratory Results 10/19/18 05:45 10/19/18 05:45 10/18/18 10/19/18 10/20/18 05:59 05:59 05:59 Intake Total 597 2080 Output Total 2850 580 Balance -2253 1500 PT 15.1 SEC (12.0-15.0) H 10/11/18 05:13 INR 1.17 (0.83-1.16) H 10/11/18 05:13 - Physical Exam Constitutional: no apparent distress, appears nourished Eyes: PERRL, anicteric sclera Ears, Nose, Mouth, Throat: moist mucous membranes, hearing normal Cardiovascular: regular rate and rhythym, no murmur, rub, or gallop Respiratory: no respiratory distress, no rales or rhonchi Gastrointestinal: normoactive bowel sounds, soft, non-tender abdomen Genitourinary: moreau in urethra Skin: warm, normal color Musculoskeletal: No full muscle strength Neurologic: No AAOx3 Psychiatric: interacting appropriately ICD10 Worksheet Patient Problems: Problems Problem Status Onset DKA (diabetic ketoacidoses) Acute Hyperglycemia Acute Respiratory failure Acute Unresponsive Acute Closed comminuted intertrochanteric fracture of femur Acute
[2018-10-19] MEDS: MELATONIN 3 MG TAB PO SCH (20:34)
[2018-10-19] MEDS ORDERED: QUEtiapine FUMARATE 25 MG TAB PO ONE (23:10)
[2018-10-20] MEDS: hydrALAZINE 20 MG/ML VIAL IVP PRN (04:33)
[2018-10-20 04:44] LABS: PLATELET COUNT 243 10^3/uL (150-400)
[2018-10-20] MEDS ORDERED: PROTOCOL POTASSIUM 1 DOSE MISC PRN (07:27)
[2018-10-20] MEDS: POTASSIUM Cl (KCl) 50 ML IV SCH ×2 (09:05→09:06)
[2018-10-20] MEDS: THIAMINE HCL 100 MG TAB PO SCH (09:06)
[2018-10-20] MEDS: ENOXAPARIN 100 MG/ML SYR SC SCH (09:06)
[2018-10-20] MEDS: FAMOTIDINE 20 MG TAB PO SCH ×2 (09:06→21:14)
[2018-10-20] MEDS: INSULIN GLARGINE 100 UNITS/ML UNIT SC SCH (09:08)
[2018-10-20] MEDS: INSULIN LISPRO 100 UNIT/ML SC SCH ×3 (09:08→18:22)
[2018-10-20] MEDS: DIGOXIN 500 MCG/2 ML AMP IVP SCH (09:10)
--- NOTE | 2018-10-20 15:42 | HOSPPROG ---
Hospitalist Progress Note Assessment/Plan: 83 yo M a/w DKA dka: resolved a1c indicative of poor control lantus 30 w very high dose lispro ss AF: vs atypical aflutter on dig, LMWH transition to po meds- eliquis, oral dig urinary retention: needed straight cath KYLE: suspect intravasc vol depletion agree w albumin X 1 CHB: was temporarily paced, appears to have resolved appreciate cardiology input encephalopathy: improving moreau: remove it is his birthday proph: anticoagulated dispo; to pcu needs snf Subjective: case d/w dr canales Objective: Vital Signs Temp Pulse Resp BP Pulse Ox 36.5 C 77 18 148/56 H 95 10/20/18 11:55 10/20/18 11:55 10/20/18 11:55 10/20/18 11:55 10/20/18 07:53 Laboratory Results 10/20/18 04:25 10/20/18 04:25 10/19/18 10/20/18 10/21/18 05:59 05:59 05:59 Intake Total 2080 345 Output Total 580 500 650 Balance 1500 -155 -650 PT 15.1 SEC (12.0-15.0) H 10/11/18 05:13 INR 1.17 (0.83-1.16) H 10/11/18 05:13 - Physical Exam Constitutional: no apparent distress, appears nourished Eyes: PERRL, anicteric sclera Ears, Nose, Mouth, Throat: moist mucous membranes, hearing normal Cardiovascular: regular rate and rhythym, no murmur, rub, or gallop Respiratory: no respiratory distress, no rales or rhonchi Gastrointestinal: normoactive bowel sounds, soft, non-tender abdomen Genitourinary: no bladder fullness, No moreau in urethra Skin: warm, normal color Musculoskeletal: full muscle strength, no muscle tenderness Neurologic: No AAOx3 ICD10 Worksheet Patient Problems: Problems Problem Status Onset DKA (diabetic ketoacidoses) Acute Hyperglycemia Acute Respiratory failure Acute Unresponsive Acute Closed comminuted intertrochanteric fracture of femur Acute
[2018-10-20] MEDS: POTASSIUM Cl (KCl) 100 ML IV SCH ×2 (17:18→17:19)
[2018-10-20] MEDS: 1/2 NS 1,000 ML IV SCH (19:42)
[2018-10-20] MEDS ORDERED: APIXABAN 2.5 MG TAB PO SCH (21:00)
[2018-10-20] MEDS: MELATONIN 3 MG TAB PO SCH (21:14)
[2018-10-20] MEDS: APIXABAN 5 MG TAB PO SCH (21:14)
[2018-10-20] MEDS: hydrALAZINE 25 MG TAB PO PRN (23:40)
[2018-10-21] MEDS: hydrALAZINE 25 MG TAB PO PRN (05:26)
[2018-10-21 05:36] LABS: PLATELET COUNT 253 10^3/uL (150-400)
[2018-10-21] MEDS: INSULIN LISPRO 100 UNIT/ML SC SCH ×3 (07:51→17:29)
[2018-10-21] MEDS ORDERED: LISINOPRIL 2.5 MG TAB PO SCH (09:00)
[2018-10-21] MEDS: THIAMINE HCL 100 MG TAB PO SCH (09:18)
[2018-10-21] MEDS: FAMOTIDINE 20 MG TAB PO SCH ×2 (09:19→21:48)
[2018-10-21] MEDS: DIGOXIN 125 MCG TAB PO SCH (09:19)
[2018-10-21] MEDS: APIXABAN 5 MG TAB PO SCH ×2 (09:19→21:48)
[2018-10-21] MEDS: INSULIN GLARGINE 100 UNITS/ML UNIT SC SCH (09:26)
[2018-10-21] MEDS: 1/2 NS 1,000 ML IV SCH (10:22)
[2018-10-21] MEDS ORDERED: D5W 1,000 ML IV SCH (12:30)
--- NOTE | 2018-10-21 13:52 | ASMTCMCOM ---
CM Note CM Note Notes: 10/21/2018 Case Management Note Multiple phone calls with daughter Ivett [phone]. Ivett resides in [place] and requests phone calls every day from staff with updates. Ivett notified case management that [facility] will not take pt back unless there is a stay at SNF rehab. [facility] also requiring pt shift insulin administration from vials + syringe to insulin pens. Encouraged Ivett to contact PCP at [facility] and arrange for ems educator to instruct pt on new insulin regime. Multiple phone calls with [facility] today. Faxed updates. Informed [facility] of need for SNF per [facility] assisted living instructions. [facility] reviewing case. Dorcas [facility] mental [facility] case manager can be reached at [phone]. Case Management d/c poc: to be determined. Case Management to follow. Date Signed: 10/21/2018 01:52 PM Electronically Signed By:Bekah Jones RN
--- NOTE | 2018-10-21 16:13 | HOSPPROG ---
Hospitalist Progress Note Assessment/Plan: 83 yo M a/w DKA hypernatremia: free water deficit likely 2/2 not liking thickened liquids start d5w q6 met panel overnight now allowed to drink thin liquids, suspect will improve dka: resolved a1c indicative of poor control lantus 30 w very high dose lispro ss AF: vs atypical aflutter on dig, LMWH transition to po meds- eliquis, oral dig urinary retention: needed straight cath denies sx KYLE: suspect intravasc vol depletion agree w albumin X 1 CHB: was temporarily paced, appears to have resolved appreciate cardiology input encephalopathy: he is alert and conversant but still quite confused unsafe for dc home at this point. without question moreau: remove proph: anticoagulated dispo; to pcu needs snf Subjective: still quite confused- couldnt tell me where his lives. VFSS- no aspiration w thin liquids Objective: Vital Signs Temp Pulse Resp BP Pulse Ox 37.1 C 83 16 181/78 H 95 10/21/18 11:59 10/21/18 11:59 10/21/18 11:59 10/21/18 11:59 10/21/18 11:59 Laboratory Results 10/21/18 04:40 10/21/18 13:30 10/20/18 10/21/18 10/22/18 05:59 05:59 05:59 Intake Total 345 99 Output Total 500 1150 Balance -155 -1051 PT 15.1 SEC (12.0-15.0) H 10/11/18 05:13 INR 1.17 (0.83-1.16) H 10/11/18 05:13 - Physical Exam Constitutional: no apparent distress, appears nourished Eyes: PERRL, anicteric sclera Ears, Nose, Mouth, Throat: moist mucous membranes, hearing normal Cardiovascular: regular rate and rhythym, no murmur, rub, or gallop Respiratory: no respiratory distress, no rales or rhonchi Gastrointestinal: normoactive bowel sounds, soft, non-tender abdomen Genitourinary: No no bladder fullness Skin: warm, normal color Musculoskeletal: full muscle strength Neurologic: No AAOx3 ICD10 Worksheet Patient Problems: Problems Problem Status Onset DKA (diabetic ketoacidoses) Acute Hyperglycemia Acute Respiratory failure Acute Unresponsive Acute Closed comminuted intertrochanteric fracture of femur Acute
--- NOTE | 2018-10-21 16:45 | PDCARPN ---
Cardiology Progress Note Assessment/Plan: 82 year old male admitted 10/11 with DKA. Early in hospital course he was diagnosed with atrial fibrillation and complete heart block. In the first 24 hours he did demonstrate bradycardia into the 40s and had a temporary pacemaker wire inserted. Temporary pacer was DC'd 2 days later when he began to develop a rapid ventricular response. Atypical (clockwise) Atrial Flutter vs Atrial Tachycardia: Atypical atrial flutter seems most likely. (The cycle length between the "P"-waves in lead V1 is 200 ms, i.e.- a rate of 300 per min which is very characteristic of flutter. ) Ventricular rate is adequately controlled. - Continue digoxin for now. - Continue systemic anticoagulation for stroke prophylaxis. Will start Eliquis 5mg BID. - Plan for cardioversion tomorrow. - Will DC digoxin and start metoprolol after cardioversion. - I expect that he will NOT require permanent pacemaker implantation. Diastolic CHF: LE edema persists. No pulmonary edema on CXR. BNP 8970 on admission. Down to 2900 on 10/18. - IV furosemide PRN. Hypertension: BP running high. Is only on 2.5 mg of lisinopril (was taking 40 mg at home). Renal function has normalized. - Increase lisinopril to 20 mg QD. 10/21/18 16:46 Reviewed/Discussed With: family Objective: Vital Signs (8 Hrs) Temp Pulse Resp BP Pulse Ox 10/21/18 16:00 36.8 C 69 16 163/87 H 96 10/21/18 11:59 37.1 C 83 16 181/78 H 95 10/21/18 09:19 73 10/21/18 09:18 177/77 H Intake/Output (24 Hrs) 10/20/18 10/21/18 10/22/18 05:59 05:59 05:59 Intake Total 345 99 Output Total 500 1150 Balance -155 -1051 Intake: Oral (ml) 170 IV Intake (ml) 100 IV Infused (ml) 75 99 1/2 Ns 1,000 ml @ 75 mls/ 75 hr IV CONT JACOB Rx#: [id number] 1/2 Ns 1,000 ml @ 75 mls/ 99 hr IV CONT JACOB Rx#: [id number] Output: Urine (ml) 500 1150 Catheter 400 1050 Incontinence 100 Urinal 100 Other: Weight 86.7 kg 86.5 kg Number of Voids Bedside Commode 1 Urinal 1 Number of Stools Bedside Commode 1 1 Bladder Scan Volume (ml) Bedside Commode 650 Incontinence 612 Post Void Residual Scan Volume (ml) Bedside Commode 530 Result Diagrams: 10/21/18 04:40 10/21/18 13:30 - Physical Exam Constitutional: no apparent distress Eyes: anicteric sclera Ears, Nose, Mouth, Throat: moist mucous membranes Cardiovascular: irregularly irregular Respiratory: clear to auscultate bilat Gastrointestinal: normoactive bowel sounds, no tenderness, no masses Skin: other (2+ edema) Psychiatric: not anxious ICD10 Worksheet Patient Problems: Problems Problem Status Onset Unresponsive Acute Respiratory failure Acute Hyperglycemia Acute DKA (diabetic ketoacidoses) Acute Closed comminuted intertrochanteric fracture of femur Acute
[2018-10-21] MEDS: MELATONIN 3 MG TAB PO SCH (21:48)
[2018-10-22 04:11] LABS: PLATELET COUNT 269 10^3/uL (150-400)
[2018-10-22 04:30] LABS: INR 1.04 (0.83-1.16); PROTIME(PATIENT) 13.8 SEC (12.0-15.0)
[2018-10-22] MEDS ORDERED: LISINOPRIL 20 MG TAB PO SCH (09:00)
[2018-10-22] MEDS: INSULIN LISPRO 100 UNIT/ML SC SCH ×3 (09:49→17:46)
[2018-10-22] MEDS: THIAMINE HCL 100 MG TAB PO SCH (09:49)
[2018-10-22] MEDS: DIGOXIN 125 MCG TAB PO SCH (09:49)
[2018-10-22] MEDS: FAMOTIDINE 20 MG TAB PO SCH (09:50)
[2018-10-22] MEDS: APIXABAN 5 MG TAB PO SCH ×2 (09:50→20:36)
--- NOTE | 2018-10-22 11:00 | PDANEPAE ---
ANE Past Medical History - Cardiovascular History Hx Hypertension: Yes Hx Arrhythmias: Yes Hx Chest Pain: No Hx Coronary Artery / Peripheral Vascular Disease: No Hx CHF / Valvular Disease: Yes Hx Palpitations: No Cardiovascular History Comment: CHB --> resolved, thought to be Afib/Aflutter. Diastolic HF, EF 65% - Pulmonary History Hx COPD: No Hx Asthma/Reactive Airway Disease: No Hx Recent Upper Respiratory Infection: No Hx Oxygen in Use at Home: No Hx Sleep Apnea: No - Endocrine History Hx Diabetes: Yes - Neurological & Psychiatric Hx Hx Neurological and Psychiatric Disorders: Yes Neurological / Psychiatric History Comment: Dementia ANE Review of Systems Review of Systems: - Exercise capacity Exercise capacity: limited by disability - Pacemaker Pacemaker Set Rate: 50 ANE Patient History - Allergies Allergies/Adverse Reactions: No Known Allergies Allergy (Unverified 10/17/18 10:35) - Home Medications Home medications: home medication list seen and reviewed Home Medications: Aspirin EC [Aspirin EC 81 mg (*)] 81 mg PO DAILY 12/22/15 [Last Taken 02/23/18] Atenolol [Tenormin 25 mg (*)] 25 mg PO DAILY 12/22/15 [Last Taken 02/23/18] Lisinopril [Zestril 40 mg (*)] 40 mg PO DAILY 12/22/15 [Last Taken 02/23/18] Simvastatin [Zocor] 20 mg PO DAILY 12/22/15 [Last Taken 02/23/18] Insulin Glargine [Lantus 100 UNITS/ML] 30 units SC DAILY 08/24/16 [Last Taken ] Alendronate Sodium [Fosamax 70 MG (*)] 70 mg PO Q7D 10/11/18 [Last Taken Unknown ] Cholecalciferol Vit D3 [Vitamin D3 (*)] 1,000 units PO DAILY 10/11/18 [Last Taken Unknown] Tamsulosin HCl [Flomax 0.4 MG (*)] 0.4 mg PO DAILY 10/11/18 [Last Taken Unknown] amLODIPine BESYLATE [Norvasc 5 mg (*)] 5 mg PO HS 10/11/18 [Last Taken Unknown] metFORMIN HCL [Glucophage 1000 mg] 1,000 mg PO BIDMEAL 10/11/18 [Last Taken Unknown] - Smoking Hx Smoking Status: Never smoked ANE Labs/Vital Signs - Labs Result Diagrams: 10/22/18 03:50 10/22/18 03:50 - Vital Signs Blood Pressure: 163/72 Heart Rate: 79 Respiratory Rate: 15 O2 Sat (%): 96 Height: 177.8 cm Weight: 86.636 kg ANE Physical Exam - Airway Neck exam: FROM Mallampati Score: Class 2 Mouth exam: poor dentition - ASA Status ASA Status: III ANE Anesthesia Plan Anesthesia Plan: MAC
[2018-10-22] MEDS ORDERED: PROPOFOL/EMULSION 500 MG/50 ML BOTTLE IV ONE (11:02)
[2018-10-22] MEDS ORDERED: ATROPINE SULFATE 1 MG/10 ML SYR ONE (11:09)
--- NOTE | 2018-10-22 11:32 | PDTEE1 ---
RAUL Cardioversion Procedure Procedure: electrical cardioversion, transesophageal echo Indications: other (atypical atrial flutter) Consent: signed and in chart Anticoagulation: enma Procedural Details: Pads were placed in anterior-posterior position. RAUL probe was advanced and standard images obtained. There is no evidence of left atrial or left atrial appendage thrombus. Synchronized cardioversion attempt #1: 200J Results: normal sinus rhythm Conclusions: successful cardioversion Patient Problems: Problems Problem Status Onset DKA (diabetic ketoacidoses) Acute Hyperglycemia Acute Respiratory failure Acute Unresponsive Acute Closed comminuted intertrochanteric fracture of femur Acute
--- NOTE | 2018-10-22 11:42 | POSTANESTH ---
Post Anesthetic Evaluation Cardiovascular Status: Normal, Stable Respiratory Status: Normal, Stable Level of Consciousness/Mental Status: Can Participate in Eval Pain Control: Adequate, Prn Tx Ordered Nausea/Vomiting Control: Adequate, Prn Tx Ordered Complications Possibly Related to Anesthesia: None Noted
--- NOTE | 2018-10-22 13:31 | PDCARPN ---
Cardiology Progress Note Assessment/Plan: 82 year old male admitted 10/11 with DKA. Early in hospital course he was diagnosed with atrial fibrillation and complete heart block. In the first 24 hours he did demonstrate bradycardia into the 40s and had a temporary pacemaker wire inserted. Temporary pacer was DC'd 2 days later when he began to develop a rapid ventricular response. Atypical (clockwise) Atrial Flutter vs Atrial Tachycardia: Atypical atrial flutter seems most likely. (The cycle length between the "P"-waves in lead V1 was 200 ms, i.e.- a rate of 300 per min which is very characteristic of flutter. ) - Underwent successful RAUL guided cardioversion today - DC digoxin. - Continue Eliquis 5mg BID. - Post-cardioversion ECG demonstrates a long 1st degree AV block. Therefore will defer beta blockade for now. Diastolic CHF: LE edema persists. No pulmonary edema on CXR. BNP 8970 on admission. Down to 2900 on 10/18. - IV furosemide PRN. Hypertension: BP continues to run high. Is on 20 mg of lisinopril (home dose was 40 mg). - Resume home dose of amlodipine 5mg QD. 10/22/18 13:35 Subjective: No complaints. Reviewed/Discussed With: family Objective: Vital Signs (8 Hrs) Temp Pulse Resp BP Pulse Ox 10/22/18 13:13 82 10 L 161/91 H 91 L 10/22/18 12:47 36.6 C 91 16 200/83 H 93 10/22/18 11:04 79 15 163/72 H 96 10/22/18 09:49 79 10/22/18 08:00 36.7 C 72 15 163/72 H 96 Intake/Output (24 Hrs) 10/21/18 10/22/18 10/23/18 05:59 05:59 05:59 Intake Total 99 2240 Output Total 1150 300 Balance -1051 1940 Intake: Oral (ml) 540 IV Intake (ml) 850 IV Infused (ml) 99 850 1/2 Ns 1,000 ml @ 75 mls/ 99 450 hr IV CONT JACOB Rx#: [id number] D5w 1,000 ml @ 75 mls/hr 400 IV CONT JACOB Rx#: [id number] Output: Urine (ml) 1150 300 Catheter 1050 Urinal 100 300 Other: Weight 86.636 kg 86.636 kg Number of Voids Bedside Commode 1 Incontinence 2 Urinal 1 2 Number of Stools Bedside Commode 1 1 Toilet 1 1 Bladder Scan Volume (ml) Bedside Commode 650 Post Void Residual Scan Volume (ml) Bedside Commode 530 Urinal 538 Result Diagrams: 10/22/18 03:50 10/22/18 03:50 - Physical Exam Constitutional: no apparent distress Eyes: anicteric sclera Ears, Nose, Mouth, Throat: moist mucous membranes Cardiovascular: regular rate and rhythm, no murmurs Respiratory: clear to auscultate bilat Gastrointestinal: normoactive bowel sounds, no tenderness, no masses Skin: other (2+ edema) Psychiatric: not anxious ICD10 Worksheet Patient Problems: Problems Problem Status Onset Unresponsive Acute Respiratory failure Acute Hyperglycemia Acute DKA (diabetic ketoacidoses) Acute Closed comminuted intertrochanteric fracture of femur Acute
[2018-10-22] MEDS: INSULIN GLARGINE 100 UNITS/ML UNIT SC SCH (13:35)
[2018-10-22] MEDS ORDERED: FUROSEMIDE 20 MG/2 ML VIAL IVP ONE (15:28)
--- NOTE | 2018-10-22 15:28 | HOSPPROG ---
Hospitalist Progress Note Assessment/Plan: * DKA -resolved * AFib -s/p cardioversion -Eliquis * Transient heart block -s/p temporary pacing - no evidence for recurrence * Metabolic encephalopathy -slow improvement * Acute respiratory failure -s/p vent -now extubated, stable * DM 1 -Lantus * Hypernatremia -D5W -now allowed thin liquids * ARF -creatinine 2.1 on admission - now resolved * Acute on chronic diastolic CHF -start IV Lasix * HTN -resume home meds -hold atenolol per cardiology due to 1st degree AVB * Rhabdo - due to prolonged down time -improved * Possible TIA -transient RUE weakness -now on Eliquis given afib Subjective: Wants to go home Objective: Vital Signs Temp Pulse Resp BP Pulse Ox 36.6 C 82 10 L 153/68 H 96 10/22/18 14:51 10/22/18 14:51 10/22/18 14:51 10/22/18 14:51 10/22/18 14:51 Microbiology 10/16/18 22:40 Blood Culture - Final Blood 10/16/18 22:20 Blood Culture - Final Blood Laboratory Results 10/22/18 03:50 10/22/18 03:50 10/21/18 10/22/18 10/23/18 05:59 05:59 05:59 Intake Total 99 2240 Output Total 1150 300 Balance -1051 1940 PT 13.8 SEC (12.0-15.0) 10/22/18 03:50 INR 1.04 (0.83-1.16) 10/22/18 03:50 CXR viewed, my personal interpretation is - early CHF ECHO - normal EF - Physical Exam Constitutional: no apparent distress, appears nourished, not in pain Cardiovascular: regular rate and rhythym, no murmur, rub, or gallop, edema (3+) Respiratory: no respiratory distress, no rales or rhonchi, clear to auscultation Skin: no rashes or abrasions, no fluctuance, no induration Neurologic: No AAOx3 Psychiatric: encephalopathic, poor insight, poor judgement, poor memory ICD10 Worksheet Patient Problems: Problems Problem Status Onset Unresponsive Acute Respiratory failure Acute Hyperglycemia Acute DKA (diabetic ketoacidoses) Acute Closed comminuted intertrochanteric fracture of femur Acute
--- NOTE | 2018-10-22 16:12 | ASMTCMCOM ---
CM Note CM Note Notes: 10/22/2018 Case Management Note Multiple discussions with daughter Ivett today. Ivett has chosen [facility] for SNF rehab. Notified [facility]. Faxed updates. Provided ferrer auth number. [facility] has a bed for pt this weekend. Case Management d/c poc: [facility] SNF rehab when medically ready. Case Management to follow. Date Signed: 10/22/2018 04:11 PM Electronically Signed By:Bekah Jones RN
[2018-10-22] MEDS: TAMSULOSIN HCL 0.4 MG CAP PO SCH (16:50)
--- NOTE | 2018-10-22 16:59 | ASMTCMCOM ---
CM Note CM Note Notes: 10/22/2018 Case Management Note Auth denied for [facility] by [facility] because it is an overflow facility. [facility] requested pt be placed at [facility]. Discussed with Fiorella from [facility] on the phone. Notified [facility]. Left VM for daughter Ivett. Case Management d/c poc: [facility] SNF rehab Case Management to follow. Date Signed: 10/22/2018 04:59 PM Electronically Signed By:Bekah Jones RN
[2018-10-22] MEDS: metFORMIN HCL 500 MG TAB PO SCH (17:45)
[2018-10-22] MEDS: MELATONIN 3 MG TAB PO SCH (20:34)
[2018-10-22] MEDS ORDERED: amLODIPine BESYLATE 5 MG TAB PO SCH (21:00)
[2018-10-23 04:37] LABS: PLATELET COUNT 242 10^3/uL (150-400)
[2018-10-23] MEDS: THIAMINE HCL 100 MG TAB PO SCH (08:28)
[2018-10-23] MEDS: metFORMIN HCL 500 MG TAB PO SCH ×2 (08:28→18:15)
[2018-10-23] MEDS: ATORVASTATIN CALCIUM 10 MG TAB PO SCH (08:28)
[2018-10-23] MEDS: TAMSULOSIN HCL 0.4 MG CAP PO SCH (08:28)
[2018-10-23] MEDS: APIXABAN 5 MG TAB PO SCH ×2 (08:28→22:05)
[2018-10-23] MEDS: LISINOPRIL 40 MG TAB PO SCH (08:30)
[2018-10-23] MEDS ORDERED: FUROSEMIDE 20 MG/2 ML VIAL IVP SCH (09:00)
[2018-10-23] MEDS ORDERED: ATENOLOL 25 MG TAB PO SCH (09:00)
[2018-10-23] MEDS ORDERED: INSULIN GLARGINE 100 UNITS/ML UNIT SC SCH (09:00)
[2018-10-23] MEDS: INSULIN LISPRO 100 UNIT/ML SC SCH ×3 (09:50→18:03)
[2018-10-23] MEDS: amLODIPine BESYLATE 5 MG TAB PO SCH ×2 (12:14→22:05)
--- NOTE | 2018-10-23 13:16 | PDCARPN ---
Cardiology Progress Note Chief Complaint: Patient reporting continue of swelling in his legs, Assessment/Plan: Assessment: 83 year old male with significant past history of type 1 diabetes, hypertension , hyperlipidemia. Admitted 10/11/2018 for DKA. Early hospital course diagnosis atrial fibrillation incomplete heart. 1st 24 hr demonstrated bradycardia, with heart rates in the 40. Temporary pacer wire was inserted. Temporary patient wearing DC 2 days later knee began to develop a flutter/a tach with RVR. Echo 10/11/2017: Normal LV size common normal LV systolic function with EF 63%. LA and RA are both normal size. Severe mitral annular calcification. Trivial MR. Mild calcified aortic valve stenosis. Moderate TR. RVSP of 35 mm Hg. RAUL cardioversion 10/22/2017: Successful conversion to sinus rhythm with synchronous cardioversion with 200 joules. 10/23/2018: Continues cardiac monitoring showing patient maintaining sinus rhythm with no malignant arrhythmias or pauses. Patient denies of any chest pain, pressure. Reports no shortness of breath. He continues to have +3 peripheral edema bilateral lower extremities. BUN 23, creatinine 0.9. Fasting lipid panel showing triglycerides 102, total cholesterol 112, LDL 60, HDL of 80. Patient hypertensive throughout the night, with systolics as high as 200. Plan: 1. A-flutter/A tach: Status post cardioversion, maintaining sinus rhythm. Significant first-degree AV block. Digoxin and atenolol discontinued. Continue on anticoagulation of Eliquis. 2. Transient heart block: Temporary pacing required during DKA. No recurrence. Patient should have a 30 day monitor upon discharge for evaluation of any further arrhythmias. 3. Acute on chronic diastolic heart failure: BNP on admission was a 2970, down to 2900 on 10/18. Continues to have +3 peripheral edema. Continue on IV Lasix. 4. Hypertension: Home dose of atenolol discontinued due to significant first- degree AV block in history of transit heart block. Patient has resumed home lisinopril dose. Patient has been restarted on amlodipine. Blood pressure remains high. Increase amlodipine to 5 mg p.o. Twice daily. 5. DKA: No resolved. 6. Type 1 diabetes: Insulin therapy per hospitalist services. 7. Hyperlipidemia: Fasting lipid panel showing adequate suppression of LDL. Continue on home dose Lipitor. 10/23/18 13:14 Subjective: He denies of any chest pressure or pain. Reports no shortness of breath. Denies of any palpitations. Reports no lightheadedness, near-syncope or syncopal events. Reviewed/Discussed With: hospitalist (Dr. Guillaume), other (Dr Bo) Objective: Vital Signs (8 Hrs) Temp Pulse Resp BP Pulse Ox 10/23/18 12:45 36.6 C 81 20 133/58 H 96 10/23/18 12:14 139/60 H 10/23/18 08:30 90 178/67 H 10/23/18 08:00 36.6 C 84 18 207/110 H 94 Intake/Output (24 Hrs) 10/22/18 10/23/18 10/24/18 05:59 05:59 05:59 Intake Total 2240 1780 400 Output Total 300 1350 Balance 1940 430 400 Intake: Oral (ml) 540 1120 400 IV Intake (ml) 850 660 IV Infused (ml) 850 1/2 Ns 1,000 ml @ 75 mls/ 450 hr IV CONT JACOB Rx#: [id number] D5w 1,000 ml @ 75 mls/hr 400 IV CONT JACOB Rx#: [id number] Output: Urine (ml) 300 1350 Catheter 1250 Toilet 100 Urinal 300 Other: Weight 86.636 kg 86.636 kg Output Comment Catheter straight cath Number of Voids Bedside Commode 1 Incontinence 2 1 Urinal 2 Number of Stools Bedside Commode 1 Toilet 1 1 Bladder Scan Volume (ml) Bedside Commode 650 Post Void Residual Scan Volume (ml) Bedside Commode 530 Incontinence 566 Toilet 578 Urinal 538 Result Diagrams: 10/23/18 04:15 10/23/18 04:15 - Physical Exam Constitutional: no apparent distress Ears, Nose, Mouth, Throat: moist mucous membranes Cardiovascular: regular rate and rhythm, no rubs, systolic murmur (1/6 systolic left sternal border.), jugular vein distention (4-5 cm above sternal notch), pulses symmetric bilat, No carotid bruit Peripheral Pulses: 1+: dorsalis-pedis (R), dorsalis-pedis (L), 2+: carotid (R), carotid (L) Respiratory: other (Diminished in bases bilateral, no rhonchi, rales, or wheezing noted.) Gastrointestinal: no masses Skin: warm, No no edema (+3 peripheral edema bilateral lower extremities to knees) Neurologic: AAOx3 Psychiatric: cooperative, interactive, following commands ICD10 Worksheet Patient Problems: Problems Problem Status Onset Unresponsive Acute Respiratory failure Acute Hyperglycemia Acute DKA (diabetic ketoacidoses) Acute Closed comminuted intertrochanteric fracture of femur Acute
--- NOTE | 2018-10-23 14:02 | ASMTCMCOM ---
CM Note CM Note Notes: Pt's d/c anticipated on Thursday. Note was sent to Rienzi via [employer] with an update of his anticipated d/c. D/C Plan: [facility] Date Signed: 10/23/2018 02:01 PM Electronically Signed By:Judi Ramirez
[2018-10-23] MEDS: FUROSEMIDE 20 MG/2 ML VIAL IVP SCH ×2 (15:34→22:05)
--- NOTE | 2018-10-23 17:02 | HOSPPROG ---
Hospitalist Progress Note Assessment/Plan: * DKA -resolved * AFib -s/p cardioversion -Eliquis * Transient heart block -s/p temporary pacing - no evidence for recurrence * Metabolic encephalopathy -resolved per family * Acute respiratory failure -s/p vent -now extubated, stable * DM 1 -Lantus -Jean to increased DM monitoring given severe DKA presentation * Hypernatremia -D5W -now allowed thin liquids * ARF -creatinine 2.1 on admission - now resolved * Acute on chronic diastolic CHF -IV Lasix * HTN -norvasc added -hold atenolol per cardiology due to 1st degree AVB * Rhabdo - due to prolonged down time -improved * Possible TIA -transient RUE weakness -now on Eliquis given afib * Urinary retention -replace moreau -Flomax restarted -DC to SNF with moreau - voiding trial 1 week Subjective: Edema, but mental status back to baseline. Still very high PVR > 700 Objective: Vital Signs Temp Pulse Resp BP Pulse Ox 36.6 C 81 20 133/58 H 96 10/23/18 12:45 10/23/18 12:45 10/23/18 12:45 10/23/18 12:45 10/23/18 12:45 Laboratory Results 10/23/18 04:15 10/23/18 04:15 10/22/18 10/23/18 10/24/18 05:59 05:59 05:59 Intake Total 2240 1780 700 Output Total 300 1350 Balance 1940 430 700 PT 13.8 SEC (12.0-15.0) 10/22/18 03:50 INR 1.04 (0.83-1.16) 10/22/18 03:50 d.w [facility] regarding med changes tele - sinus EKG viewed, my personal interpretation is - very prolonged 1st degree block - Physical Exam Constitutional: no apparent distress, appears nourished, not in pain Cardiovascular: regular rate and rhythym, no murmur, rub, or gallop Respiratory: no respiratory distress, no rales or rhonchi, clear to auscultation Gastrointestinal: normoactive bowel sounds, soft, non-tender abdomen, no palpable masses Skin: no rashes or abrasions, no fluctuance, no induration Neurologic: AAOx3, sensation intact bilaterally Psychiatric: interacting appropriately, not anxious, not encephalopathic, thought process linear ICD10 Worksheet Patient Problems: Problems Problem Status Onset DKA (diabetic ketoacidoses) Acute Hyperglycemia Acute Respiratory failure Acute Unresponsive Acute Closed comminuted intertrochanteric fracture of femur Acute
[2018-10-23] MEDS ORDERED: D50W 25 GM/50 ML SYR IVP PRN (17:22)
[2018-10-23] MEDS: MELATONIN 3 MG TAB PO SCH (22:05)
[2018-10-24] MEDS: FUROSEMIDE 20 MG/2 ML VIAL IVP SCH ×3 (06:26→21:35)
[2018-10-24] MEDS: APIXABAN 5 MG TAB PO SCH ×2 (08:29→21:31)
[2018-10-24] MEDS: amLODIPine BESYLATE 5 MG TAB PO SCH ×2 (08:29→21:30)
[2018-10-24] MEDS: ATORVASTATIN CALCIUM 10 MG TAB PO SCH (08:29)
[2018-10-24] MEDS: THIAMINE HCL 100 MG TAB PO SCH (08:29)
[2018-10-24] MEDS: LISINOPRIL 40 MG TAB PO SCH (08:29)
[2018-10-24] MEDS: TAMSULOSIN HCL 0.4 MG CAP PO SCH (08:29)
[2018-10-24] MEDS: INSULIN GLARGINE 100 UNITS/ML UNIT SC SCH ×2 (09:03→10:26)
[2018-10-24] MEDS: metFORMIN HCL 500 MG TAB PO SCH ×2 (10:25→17:58)
[2018-10-24] MEDS: INSULIN LISPRO 100 UNIT/ML SC SCH ×3 (10:26→17:33)
--- NOTE | 2018-10-24 11:24 | SOAPPROG ---
[facility] Progress Note Assessment/Plan: 83 year old male with significant past history of type 1 diabetes, hypertension , hyperlipidemia. Admitted 10/11/2018 for DKA. Echo 10/11/2018: Normal LV size common normal LV systolic function with EF 63%. LA and RA are both normal size. Severe mitral annular calcification. Trivial MR. Mild calcified aortic valve stenosis. Moderate TR. RVSP of 35 mm Hg. Temporary pacemaker placement 10/11/18 for heart block RAUL cardioversion 10/22/2018 for atrial flutter Mobitz type 1 second degree AVB on 10/24/18 following atenolol 1. A-flutter/A tach - Status post cardioversion, maintaining sinus rhythm. First-degree AV block and Mobitz type 1 AVB following atenolol. Query early SSS. --> Continue eliquis --> Consider metoprolol 2. Acute on chronic diastolic heart failure - BNP on admission was a 2970. Weight down 3 KG since admit. Continues to have +3 peripheral edema. --> Continue on IV Lasix. 3. Hypertension - Well controlled on lisinopril and amlodipine. --> Continue current therapy 4. DKA - No resolved. 5. Type 1 diabetes - Insulin therapy per hospitalist services. 6. Hyperlipidemia - Favorable lipid profile. --> Continue atorvastatin Subjective: No chest pain Ambulating with assist + edema + Mobitz type 1 AVB. Objective: Vital Signs Temp Pulse Resp BP Pulse Ox 36.4 C 65 14 132/58 H 98 10/24/18 08:30 10/24/18 08:30 10/24/18 08:30 10/24/18 08:30 10/24/18 08:30 Laboratory Results 10/23/18 04:15 10/24/18 04:10 10/23/18 10/24/18 10/25/18 05:59 05:59 05:59 Intake Total 1780 1400 Output Total 1350 3800 Balance 430 -2400 PT 13.8 SEC (12.0-15.0) 10/22/18 03:50 INR 1.04 (0.83-1.16) 10/22/18 03:50 Physical Exam - Physical Exam General Appearance: alert Respiratory: lungs clear Cardiac/Chest: regular rate, rhythm Extremities: pedal edema ICD10 Worksheet Patient Problems: Problems Problem Status Onset DKA (diabetic ketoacidoses) Acute Hyperglycemia Acute Respiratory failure Acute Unresponsive Acute Closed comminuted intertrochanteric fracture of femur Acute
[2018-10-24] MEDS: IPRATROPIUM/ALBUTEROL 3 ML DEYVIAL IH SCH ×2 (11:49→17:07)
--- NOTE | 2018-10-24 16:38 | HOSPPROG ---
Hospitalist Progress Note Assessment/Plan: * DKA -resolved * AFib -s/p cardioversion -Eliquis * Transient heart block -s/p temporary pacing - no evidence for recurrence * Metabolic encephalopathy -resolved per family * Acute respiratory failure -s/p vent -now extubated, stable * DM 1 -Lantus - reduce dose due to am hypoglycemia -Jean to increased DM monitoring given severe DKA presentation * Hypernatremia -resolved * ARF -creatinine 2.1 on admission - now resolved * Acute on chronic diastolic CHF -IV Lasix - still 3-4+ edema - diuresing well * HTN -norvasc added -hold atenolol per cardiology due to 1st degree AVB * Rhabdo - due to prolonged down time -improved * Possible TIA -transient RUE weakness -now on Eliquis given afib * Urinary retention -replace moreau -Flomax restarted -DC to SNF with moreau - voiding trial 1 week Subjective: no new complaints. Objective: Vital Signs Temp Pulse Resp BP Pulse Ox 36.9 C 59 L 20 126/49 H 97 10/24/18 12:00 10/24/18 12:00 10/24/18 12:00 10/24/18 12:00 10/24/18 12:00 Laboratory Results 10/23/18 04:15 10/24/18 04:10 10/23/18 10/24/18 10/25/18 05:59 05:59 05:59 Intake Total 1780 1400 Output Total 1350 3800 Balance 430 -2400 PT 13.8 SEC (12.0-15.0) 10/22/18 03:50 INR 1.04 (0.83-1.16) 10/22/18 03:50 - Physical Exam Constitutional: no apparent distress, appears nourished, not in pain Cardiovascular: regular rate and rhythym, no murmur, rub, or gallop Respiratory: no respiratory distress, no rales or rhonchi, clear to auscultation Gastrointestinal: normoactive bowel sounds, soft, non-tender abdomen, no palpable masses Skin: no rashes or abrasions, no fluctuance, no induration Neurologic: AAOx3, sensation intact bilaterally Psychiatric: interacting appropriately, not anxious, not encephalopathic, thought process linear ICD10 Worksheet Patient Problems: Problems Problem Status Onset Unresponsive Acute Respiratory failure Acute Hyperglycemia Acute DKA (diabetic ketoacidoses) Acute Closed comminuted intertrochanteric fracture of femur Acute
[2018-10-24] MEDS ORDERED: IPRATROPIUM/ALBUTEROL 3 ML DEYVIAL IH PRN (17:30)
[2018-10-24] MEDS: MELATONIN 3 MG TAB PO SCH (21:31)
[2018-10-25] MEDS: FUROSEMIDE 20 MG/2 ML VIAL IVP SCH ×3 (06:01→21:42)
[2018-10-25] MEDS: INSULIN LISPRO 100 UNIT/ML SC SCH ×3 (09:13→18:46)
[2018-10-25] MEDS: INSULIN GLARGINE 100 UNITS/ML UNIT SC SCH (09:35)
[2018-10-25] MEDS: APIXABAN 5 MG TAB PO SCH ×2 (09:36→21:40)
[2018-10-25] MEDS: LISINOPRIL 40 MG TAB PO SCH (09:36)
[2018-10-25] MEDS: ATORVASTATIN CALCIUM 10 MG TAB PO SCH (09:36)
[2018-10-25] MEDS: THIAMINE HCL 100 MG TAB PO SCH (09:36)
[2018-10-25] MEDS: metFORMIN HCL 500 MG TAB PO SCH ×2 (09:36→19:09)
[2018-10-25] MEDS: TAMSULOSIN HCL 0.4 MG CAP PO SCH (09:36)
[2018-10-25] MEDS: amLODIPine BESYLATE 5 MG TAB PO SCH ×2 (09:36→21:40)
--- NOTE | 2018-10-25 10:28 | PDCARPN ---
Cardiology Progress Note Chief Complaint: Patient states he would like to go home. Assessment/Plan: Assessment: 83 year old male with significant past history of type 1 diabetes, hypertension , hyperlipidemia. Admitted 10/11/2018 for DKA. Early hospital course diagnosis atrial fibrillation incomplete heart. 1st 24 hr demonstrated bradycardia, with heart rates in the 40. Temporary pacer wire was inserted. Temporary patient wearing DC 2 days later knee began to develop a flutter/a tach with RVR. Echo 10/11/2017: Normal LV size common normal LV systolic function with EF 63%. LA and RA are both normal size. Severe mitral annular calcification. Trivial MR. Mild calcified aortic valve stenosis. Moderate TR. RVSP of 35 mm Hg. RAUL cardioversion 10/22/2017: Successful conversion to sinus rhythm with synchronous cardioversion with 200 joules. 10/25/2018: Continues cardiac monitoring showing sinus rhythm with first-degree AV block. Occasional episode of second-degree heart block type 1, patient is asymptomatic. No other malignant arrhythmias. He reports no chest pain, pressure, or symptoms suggesting of ischemia. Reports no shortness of breath at rest. He has had improvement in his peripheral edema to his lower extremities. Weight is down approximately 2 kilos from yesterday. O>I. Laboratories showing potassium 3.9, magnesium 1.7, BUN 23, creatinine 0.9. Plan: 1. A-flutter/A tach: Status post cardioversion, maintaining sinus rhythm. Significant first-degree AV block and occasional second-degree heart block type 1. Patient is asymptomatic. Digoxin and atenolol discontinued. Would hold any further beta-lavelle, digoxin or non dihydropyridine calcium channel lavelle. Continue on anticoagulation of Eliquis. 2. Transient complete heart block: Temporary pacing required during DKA for complete heart block. No recurrence. Post cardioversion patient noted to have a significant prolonged first-degree AV block (PRIl greater than 300 milliseconds). Patient also noted to have over last 2 days of occasional episode of second-degree heart block type 1. Asymptomatic. Patient should have a 30 day monitor upon discharge for evaluation of any further arrhythmias. 3. Acute on chronic diastolic heart failure: BNP on admission was a 2970, down to 2900 on 10/18. Continues to have +3 peripheral edema, but improved since I last saw him on 10/23. Continue on IV Lasix. Potassium and magnesium replacement therapy ordered. Repeat BMP and magnesium level in a.m.. 4. Hypertension: Improved on home dose of lisinopril and increased dose of amlodipine at 5 mg p.o. Twice daily. 5. DKA: resolved. 6. Type 1 diabetes: Insulin therapy per hospitalist services. 7. Hyperlipidemia: Fasting lipid panel showing adequate suppression of LDL. Continue on home dose Lipitor. 10/25/18 10:21 Subjective: He denies of any chest pressure or pain. Denies of any palpitations. Reports SOB only with exertion, and feels this is improved. Denies of any lightheadedness, near-syncope or syncopal events. Reviewed/Discussed With: other (Dr Brar and Dr Guzmán) Objective: Vital Signs (8 Hrs) Temp Pulse Resp BP Pulse Ox 10/25/18 09:36 129/55 H 10/25/18 08:00 36.6 C 72 18 129/55 H 93 10/25/18 04:00 36.8 C 64 12 143/60 H 92 Intake/Output (24 Hrs) 10/24/18 10/25/18 10/26/18 05:59 05:59 05:59 Intake Total 1400 600 Output Total 3800 2450 Balance -2400 -1850 Intake: Oral (ml) 1400 600 Output: Urine (ml) 3800 2450 Catheter 3800 2450 Other: Weight 83.2 kg Output Comment Catheter straight cath Number of Stools Bedside Commode 1 Incontinence 1 Result Diagrams: 10/23/18 04:15 10/25/18 04:05 - Physical Exam Constitutional: no apparent distress Ears, Nose, Mouth, Throat: moist mucous membranes Cardiovascular: regular rate and rhythm, no rubs, no gallops, systolic murmur (2 /6 left sternal border.), jugular vein distention (4-5 cm above sternal notch at a 45 degree angle), pulses symmetric bilat, No carotid bruit Peripheral Pulses: 1+: dorsalis-pedis (R), dorsalis-pedis (L), 2+: carotid (R), carotid (L) Respiratory: other (Clear but diminished in bases bilateral, no rhonchi, rales, or wheezing noted. No accessary muscle use, no intercostal muscle retraction noted.) Gastrointestinal: normoactive bowel sounds, no masses Skin: warm, No no edema (+3 peripheral edema bilateral lower extremities to knees) Neurologic: AAOx3 Psychiatric: cooperative, interactive, following commands ICD10 Worksheet Patient Problems: Problems Problem Status Onset DKA (diabetic ketoacidoses) Acute Hyperglycemia Acute Respiratory failure Acute Unresponsive Acute Closed comminuted intertrochanteric fracture of femur Acute
[2018-10-25] MEDS ORDERED: POTASSIUM CL 20 MEQ TAB PO ONE (10:30)
[2018-10-25] MEDS ORDERED: MAGNESIUM SULF 1 GM/DEXTROSE 100 ML IV ONE (10:30)
--- NOTE | 2018-10-25 13:40 | ECHO ---
[email or web address] [address] [address] Main: [phone] Fax: Transesophageal Echocardiography Name: FREDRICK RAMOS MR#: [id number] Study Date: 10/22/2018 Study Time: 11:02 AM Date of : 1935 Age: 83 year(s) Height: 177.8 cm (70 in.) Weight: 86.18 kg (190 lb.) BSA: 2.04 m2 Gender: Male Examination: RAUL Indication: Cardioversion Image Quality: Adequate Contrast: Requested by: Mika Mejía Heart Rate: Rhythm: BP: / Procedure Staff Starting Gate Driver: Karine Patel [facility] Reading Physician: Mika Mejía MD Requesting Provider: RAUL Exam Details Conclusions: Normal size left ventricle. Normal global systolic LV function. No regional wall motion abnormality. The left atrium is mildly dilated. Good color flow doppler in the left atrial appendage. No thrombus in left appendage. There is mild thickening of the mitral valve leaflets. Mild mitral valve regurgitation is present. Aortic sclerosis is present. Mild aortic valve regurgitation is present. Mild atheroma. No siignificant differences compared to a transthoracic study from 10/11/2018. Measurements: Chambers Valvular Assessment AV/MV Valvular Assessment TV/PV Normal Normal Normal Name Value Range Name Value Range Name Value Range Additional Measurements: Findings: Left Ventricle: Normal size left ventricle. Normal global systolic LV function. No regional wall motion abnormality. Patient: FREDRICK RAMOS Study Date: 10/22/2018 Page 1 of 2 11:02 AM Right Ventricle: Normal size right ventricle. Normal RV function. Left Atrium: The left atrium is mildly dilated. Left Atrial Appendage: Good color flow doppler in the left atrial appendage. Normal PW-Doppler flow pattern. No thrombus in left appendage. Right Atrium: The right atrium is normal in size. Mitral Valve: There is mild thickening of the mitral valve leaflets. Mild mitral valve regurgitation is present. No mitral stenosis is present. Aortic Valve: The aortic valve is tri-leaflet. Aortic sclerosis is present. Mild aortic valve regurgitation is present. Aorta: Mild atheroma. l1n (No Signature Object) Patient: FREDRICK RAMOS Study Date: 10/22/2018 Page 2 of 2 11:02 AM [id number]
--- NOTE | 2018-10-25 14:13 | ASMTCMCOM ---
CM Note CM Note Notes: 10/25/2018 Case Management Note Discussed pt during rounds today. Diuresis continues. Updated [facility] and [facility] via [facility]. Need new auth number needed by [facility] for SNF rehab. Made request to [facility]. Case Management d/c poc: [facility] re[facility] pending auth from [facility]. Case Management to follow. Date Signed: 10/25/2018 02:12 PM Electronically Signed By:Bekah Jones RN
--- NOTE | 2018-10-25 17:06 | HOSPPROG ---
Hospitalist Progress Note Assessment/Plan: * DKA -resolved * AFib -s/p cardioversion -Eliquis * Transient heart block -s/p temporary pacing - no evidence for recurrence -30 day monitor at discharge * Metabolic encephalopathy -resolved per family * Acute respiratory failure -s/p vent -now extubated, stable * DM 1 -Lantus - reduce dose due to am hypoglycemia -Jean to increased DM monitoring given severe DKA presentation * Hypernatremia -resolved * ARF -creatinine 2.1 on admission - now resolved * Acute on chronic diastolic CHF -IV Lasix - still 3-4+ edema - diuresing well * HTN -norvasc added -hold atenolol/digoxin per cardiology due to 1st degree AVB, occ 2nd degree type 1 * Rhabdo - due to prolonged down time -improved * Possible TIA -transient RUE weakness -now on Eliquis given afib * Urinary retention -replace moreau -Flomax restarted -DC to SNF with moreau - voiding trial 1 week Dispo - to SNF when volume status improved Subjective: no new complaints. Objective: Vital Signs Temp Pulse Resp BP Pulse Ox 36.6 C 61 18 113/54 L 97 10/25/18 15:55 10/25/18 15:55 10/25/18 15:55 10/25/18 15:55 10/25/18 15:55 Laboratory Results 10/23/18 04:15 10/25/18 04:05 10/24/18 10/25/18 10/26/18 05:59 05:59 05:59 Intake Total 1400 600 Output Total 3800 2450 Balance -2400 -1850 PT 13.8 SEC (12.0-15.0) 10/22/18 03:50 INR 1.04 (0.83-1.16) 10/22/18 03:50 - Physical Exam Constitutional: no apparent distress, appears nourished, not in pain Cardiovascular: regular rate and rhythym, no murmur, rub, or gallop, edema (3+) Respiratory: no respiratory distress, no rales or rhonchi, clear to auscultation Gastrointestinal: normoactive bowel sounds, soft, non-tender abdomen, no palpable masses Skin: no rashes or abrasions, no fluctuance, no induration Neurologic: AAOx3, sensation intact bilaterally Psychiatric: interacting appropriately, not anxious, not encephalopathic, thought process linear ICD10 Worksheet Patient Problems: Problems Problem Status Onset Unresponsive Acute Respiratory failure Acute Hyperglycemia Acute DKA (diabetic ketoacidoses) Acute Closed comminuted intertrochanteric fracture of femur Acute
[2018-10-25] MEDS: MELATONIN 3 MG TAB PO SCH (21:40)
[2018-10-26] MEDS: FUROSEMIDE 20 MG/2 ML VIAL IVP SCH ×3 (06:25→20:40)
[2018-10-26] MEDS: THIAMINE HCL 100 MG TAB PO SCH (08:22)
[2018-10-26] MEDS: LISINOPRIL 40 MG TAB PO SCH (08:22)
[2018-10-26] MEDS: APIXABAN 5 MG TAB PO SCH ×2 (08:23→20:39)
[2018-10-26] MEDS: ATORVASTATIN CALCIUM 10 MG TAB PO SCH (08:23)
[2018-10-26] MEDS: INSULIN GLARGINE 100 UNITS/ML UNIT SC SCH (08:23)
[2018-10-26] MEDS: metFORMIN HCL 500 MG TAB PO SCH ×2 (08:23→17:29)
[2018-10-26] MEDS: TAMSULOSIN HCL 0.4 MG CAP PO SCH (08:23)
[2018-10-26] MEDS: amLODIPine BESYLATE 5 MG TAB PO SCH ×2 (08:23→20:39)
[2018-10-26] MEDS: INSULIN LISPRO 100 UNIT/ML SC SCH ×3 (09:43→17:30)
--- NOTE | 2018-10-26 11:41 | PDCARCONS ---
Cardiology Consult Reason for Consult: Wenckebach AV block, atrial fibrillation Chief Complaint: "I just need to get this fluid off my legs" Requesting Physician: Dr Alexander History of Present Illness: Mr Trotter is a very pleasant 83yo M, seen in consultation at the request of Dr Alexander. His PMH is notable for DM1, HTN, chronic diastolic heart failure. He's admitted since 10/11/18, initially presenting with DKA with multiple associated lyte abnormalities; during this stay he was in AF with high grade AV block necessitating placement of temporary pacing catheter (this resolved with correction of electrolytes). He underwent cardioversion on 10/22/18, and since that time has been in SR with low-grade Wenckebach-physiology AV block. His heart rates have been 60-70s. He reports that his main concern is the LE edema; he also has a significant cough, and his daughter is concerned that he might have aspirated while in the ICU. However, he denies any syncope/near-syncope. He states that he's been quite physically active until this admission, but does report that he's not as functional as he was 40 years ago when he was a runner. History Information - Allergies/Home Medication List Allergies/Adverse Reactions: No Known Allergies Allergy (Unverified 10/17/18 10:35) Home Medications: Aspirin EC [Aspirin EC 81 mg (*)] 81 mg PO DAILY 12/22/15 [Last Taken 02/23/18] Atenolol [Tenormin 25 mg (*)] 25 mg PO DAILY 12/22/15 [Last Taken 02/23/18] Lisinopril [Zestril 40 mg (*)] 40 mg PO DAILY 12/22/15 [Last Taken 02/23/18] Simvastatin [Zocor] 20 mg PO DAILY 12/22/15 [Last Taken 02/23/18] Insulin Glargine [Lantus 100 UNITS/ML] 30 units SC DAILY 08/24/16 [Last Taken ] Alendronate Sodium [Fosamax 70 MG (*)] 70 mg PO Q7D 10/11/18 [Last Taken Unknown ] Cholecalciferol Vit D3 [Vitamin D3 (*)] 1,000 units PO DAILY 10/11/18 [Last Taken Unknown] Tamsulosin HCl [Flomax 0.4 MG (*)] 0.4 mg PO DAILY 10/11/18 [Last Taken Unknown] amLODIPine BESYLATE [Norvasc 5 mg (*)] 5 mg PO HS 10/11/18 [Last Taken Unknown] metFORMIN HCL [Glucophage 1000 mg] 1,000 mg PO BIDMEAL 10/11/18 [Last Taken Unknown] I have personally reviewed and updated: family history, medical history, social history, surgical history Past Medical History: - Social History Smoking Status: Never smoked Physical Exam Physical Exam: Temp Pulse Resp BP Pulse Ox 36.7 C 77 10 L 144/51 H 96 10/26/18 11:15 10/26/18 11:15 10/26/18 11:15 10/26/18 11:15 10/26/18 11:15 O2 (L/minute) 2 FIO2 (%) 40 Constitutional: no apparent distress, not in pain Eyes: EOMI Ears, Nose, Mouth, Throat: moist mucous membranes Cardiovascular: regular rate and rhythym, no murmur, rub, or gallop, edema (2+ bilateral LE) Peripheral Pulses: 2+: dorsalis-pedis (R), dorsalis-pedis (L) Respiratory: other (good air movement; dry crackles lower lung knapp L>R) Gastrointestinal: normoactive bowel sounds, soft, non-tender abdomen Skin: warm, no rashes or abrasions Musculoskeletal: normal joint ROM Neurologic: AAOx3, CN II-XII Intact Psychiatric: interacting appropriately, not anxious Lab and Imaging 10/23/18 04:15 10/26/18 04:30 WBC 10.17 10^3/uL (3.80-9.50) H 10/23/18 04:15 RBC 3.14 10^6/uL (4.40-6.38) L 10/23/18 04:15 Hgb 9.3 g/dL (13.7-17.5) L 10/23/18 04:15 POC Hgb 13.6 gm/dL (13.7-17.5) L 10/11/18 05:16 Hct 28.8 % (40.0-51.0) L 10/23/18 04:15 POC Hct 40 % (40-51) 10/11/18 05:16 MCV 91.7 fL (81.5-99.8) 10/23/18 04:15 MCH 29.6 pg (27.9-34.1) 10/23/18 04:15 MCHC 32.3 g/dL (32.4-36.7) L 10/23/18 04:15 RDW 15.9 % (11.5-15.2) H 10/23/18 04:15 Plt Count 242 10^3/uL (150-400) 10/23/18 04:15 MPV 10.6 fL (8.7-11.7) 10/23/18 04:15 Neut % (Auto) 70.7 % (39.3-74.2) 10/23/18 04:15 Lymph % (Auto) 18.1 % (15.0-45.0) 10/23/18 04:15 [place] % (Auto) 7.6 % (4.5-13.0) 10/23/18 04:15 Eos % (Auto) 2.6 % (0.6-7.6) 10/23/18 04:15 Baso % (Auto) 0.3 % (0.3-1.7) 10/23/18 04:15 Nucleat RBC Rel Count 0.0 % (0.0-0.2) 10/23/18 04:15 Absolute Neuts (auto) 7.20 10^3/uL (1.70-6.50) H 10/23/18 04:15 Absolute Lymphs (auto) 1.84 10^3/uL (1.00-3.00) 10/23/18 04:15 Absolute Monos (auto) 0.77 10^3/uL (0.30-0.80) 10/23/18 04:15 Absolute Eos (auto) 0.26 10^3/uL (0.03-0.40) 10/23/18 04:15 Absolute Basos (auto) 0.03 10^3/uL (0.02-0.10) 10/23/18 04:15 Absolute Nucleated RBC 0.00 10^3/uL (0-0.01) 10/23/18 04:15 Immature Gran % 0.7 % (0.0-1.1) 10/23/18 04:15 Immature Gran # 0.07 10^3/uL (0.00-0.10) 10/23/18 04:15 PT 13.8 SEC (12.0-15.0) 10/22/18 03:50 INR 1.04 (0.83-1.16) 10/22/18 03:50 APTT 29.7 SEC (23.0-38.0) 10/22/18 03:50 Puncture Site RIGHT RADIAL 10/15/18 09:20 Patient Temperature 37.0 DEGREES 10/15/18 09:20 pCO2 21 mmHg (34-38) L 10/15/18 09:20 pO2 79 mmHg (65-75) H 10/15/18 09:20 Total CO2 14 mEq/L (23-27) L 10/15/18 09:20 ABG pH 7.40 (7.35-7.45) 10/15/18 09:20 ABG PO2/FiO2 Ratio 80 RATIO 10/11/18 06:13 ABG HCO3 13 mEq/L (22-26) L 10/15/18 09:20 ABG O2 Saturation 96 % (92-95) H 10/15/18 09:20 ABG Base Excess -9.7 mEq/L (-2.5-2.5) L 10/15/18 09:20 VBG pH 7.35 (7.31-7.42) 10/11/18 15:15 VBG HCO3 16 mEQ/L (22-26) L 10/11/18 15:15 VBG Total CO2 16 mEq/L (21-27) L 10/11/18 15:15 VBG O2 Saturation 75 % (65-75) 10/11/18 15:15 VBG Base Excess -8.4 mEq/L (-2.5-2.5) L 10/11/18 15:15 Mixed VBG pCO2 29 mmHg (40-44) L 10/11/18 15:15 Mixed VBG pO2 42 mmHG (35-40) H 10/11/18 15:15 O2 Concentration % ROOM AIR % (0-100) 10/15/18 09:20 Respiration Rate 23 10/11/18 11:15 Set Respiration Rate 14 10/11/18 11:15 Assist Control YES 10/11/18 11:15 Tidal Volume 600 10/11/18 11:15 End Tidal CO2 23 10/11/18 11:15 PEEP 5 10/11/18 11:15 POC Sodium 133 mEq/L (135-145) L 10/11/18 05:16 Sodium 137 mEq/L (135-145) 10/26/18 04:30 POC Potassium 6.5 mEq/L (3.3-5.0) H* 10/11/18 05:16 Potassium 4.1 mEq/L (3.5-5.2) 10/26/18 04:30 POC Chloride 104 mEq/L (97-110) 10/11/18 05:16 Chloride 105 mEq/L (97-110) 10/26/18 04:30 Carbon Dioxide 30 mEq/l (22-31) 10/26/18 04:30 POC Total CO2 8 mEq/L (22-31) L* 10/11/18 05:16 Anion Gap 2 mEq/L (6-14) L 10/26/18 04:30 POC BUN 55 mg/dL (7-23) H 10/11/18 05:16 BUN 25 mg/dL (7-23) H 10/26/18 04:30 Creatinine 0.9 mg/dL (0.7-1.3) 10/26/18 04:30 POC Creatinine 2.0 mg/dL (0.7-1.3) H 10/11/18 05:16 Estimated GFR > 60 10/26/18 04:30 Glucose 118 mg/dL (70-100) H 10/26/18 04:30 POC Glucose 101 mg/dL (70-100) H 10/26/18 08:29 Hemoglobin A1c 10.6 % (4.0-6.0) H 10/13/18 05:40 Estim Average Glucose 258 mg/dL (68-126) H 10/13/18 05:40 Calcium 8.4 mg/dL (8.5-10.4) L 10/26/18 04:30 Phosphorus Cancelled 10/11/18 05:13 Magnesium 2.0 mg/dL (1.6-2.3) 10/26/18 04:30 Total Bilirubin 0.7 mg/dL (0.1-1.4) 10/21/18 04:40 Conjugated Bilirubin 0.6 mg/dL (0.0-0.5) H 10/11/18 05:13 Unconjugated Bilirubin 0.0 mg/dL (0.0-1.1) 10/11/18 05:13 AST 71 IU/L (17-59) H 10/21/18 04:40 ALT 66 IU/L (21-72) 10/21/18 04:40 Alkaline Phosphatase 159 IU/L (38-126) H 10/21/18 04:40 Creatine Kinase 1414 IU/L (0-224) H 10/13/18 05:40 CK-MB (CK-2) Fraction 3.56 ng/mL (0.00-4.55) 10/13/18 05:40 CK-MB (CK-2) % 0.3 % (0.0-4.0) 10/13/18 05:40 Creatine Kinase Interp NEGATIVE (NEGATIVE) 10/13/18 05:40 POC Troponin I 0.07 ng/mL (0.00-0.08) 10/11/18 05:13 Troponin I 0.076 ng/mL (0.000-0.034) H 10/11/18 09:07 NT-Pro-B Natriuret Pep 2900 pg/mL (0-450) H 10/18/18 05:25 Total Protein 4.7 g/dL (6.3-8.2) L 10/21/18 04:40 Albumin 2.5 g/dL (3.5-5.0) L 10/21/18 04:40 Triglycerides 102 mg/dL (40-150) 10/23/18 04:15 Cholesterol 112 mg/dL (140-220) L 10/23/18 04:15 Cholesterol Risk Factr 0.6 (0.2-1.0) 10/23/18 04:15 LDL Cholesterol, Calc 60 mg/dL (80-100) L 10/23/18 04:15 LDL Risk Factor 0.8 (0.2-1.0) 10/23/18 04:15 VLDL Cholesterol 20 mg/dL (8-25) 10/23/18 04:15 Non-HDL Cholesterol 80 mg/dL (90-129) L 10/23/18 04:15 HDL Cholesterol 32 mg/dL (40-65) L 10/23/18 04:15 LDL/HDL Ratio 1.86 RATIO (1.00-3.64) 10/23/18 04:15 Cholesterol/HDL Ratio 3.50 RATIO (1.00-4.97) 10/23/18 04:15 Lipase 10 IU/L (23-300) L 10/11/18 05:13 Beta-Hydroxybutyrate 0.24 mmol/L (0.02-0.27) 10/11/18 17:00 Procalcitonin 0.31 ng/mL (0.02-0.10) H 10/17/18 14:10 Specimen Hemolysis 108 10/11/18 13:00 Urine Color YELLOW 10/11/18 06:10 Urine Appearance CLEAR 10/11/18 06:10 Urine pH 5.0 (5.0-7.5) 10/11/18 06:10 Ur Specific [place] 1.021 (1.002-1.030) 10/11/18 06:10 Urine Protein NEGATIVE (NEGATIVE) 10/11/18 06:10 Urine Ketones 1+ (NEGATIVE) H 10/11/18 06:10 Urine Blood NEGATIVE (NEGATIVE) 10/11/18 06:10 Urine Nitrate NEGATIVE (NEGATIVE) 10/11/18 06:10 Urine Bilirubin NEGATIVE (NEGATIVE) 10/11/18 06:10 Urine Urobilinogen NEGATIVE EU (0.2-1.0) 10/11/18 06:10 Ur Leukocyte Esterase NEGATIVE (NEGATIVE) 10/11/18 06:10 Urine RBC 1-3 /hpf (0-3) 10/11/18 06:10 Urine WBC 1-3 /hpf (0-3) 10/11/18 06:10 Ur Epithelial Cells NONE SEEN /lpf (NONE-1+) 10/11/18 06:10 Urine Glucose 3+ (NEGATIVE) H 10/11/18 06:10 Digoxin 0.6 ng/mL (0.8-2.0) L 10/22/18 03:50 Urine Opiates Screen NEGATIVE (NEGATIVE) 10/11/18 06:10 Urine Barbiturates NEGATIVE (NEGATIVE) 10/11/18 06:10 Ur Phencyclidine Scrn NEGATIVE (NEGATIVE) 10/11/18 06:10 Ur Amphetamine Screen NEGATIVE (NEGATIVE) 10/11/18 06:10 U Benzodiazepines Scrn NEGATIVE (NEGATIVE) 10/11/18 06:10 Urine Cocaine Screen NEGATIVE (NEGATIVE) 10/11/18 06:10 U Marijuana (THC) Screen NEGATIVE (NEGATIVE) 10/11/18 06:10 Ethyl Alcohol < 10 mg/dL (0-10) 10/11/18 05:13 EKG Interpretation: Positive for: other (SR with 1st degree AV block) Telemetry: SR with 1st degree AV block and low-grade WEnckebach A/P Assessment: #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 He may well be heading for pacemaker implantation for functional reasons, but at this stage I think it's going to be difficult to tease out just how much 1st/low- grade 2nd degree AV block is contributing to his fatigue, given his complex admission history to date. RECS: -continue tele monitoring while inhouse -check TSH/T4 (ordered by me) -if we see compelling reason to proceed with PPM implant this admission, we'll do so. If we do not see higher-grade AVB in the next few days, would plan on 2 week ambulatory monitor at discharge, with discussion about PPM candidacy in the outpatient setting, where we'd be more able to assess the functional impact of this benign AV block. Thank you for this consult, I will plan to follow along with you while he's admitted.
[2018-10-26] MEDS ORDERED: guaiFENesin/CODEINE PHOS 10 ML UDCUP PO PRN (11:52)
[2018-10-26] MEDS: FLUTICASONE/SALMETER 250/50MCG DISKUS IH SCH ×2 (12:06→20:53)
--- NOTE | 2018-10-26 13:38 | CPEKG ---
Test Reason : OPEN Blood Pressure : / mmHG Vent. Rate : 080 BPM Atrial Rate : 000 BPM P-R Int : 216 ms QRS Dur : 092 ms QT Int : 546 ms P-R-T Axes : 000 -39 173 degrees QTc Int : 630 ms Atrial fibrillation Left axis deviation Prolonged QT interval premature ventricular complexes Confirmed by Alexx Guzmán ([id number]) on 10/26/2018 1:38:10 PM Referred By: Elly Grant Confirmed By:Alexx Guzmán
--- NOTE | 2018-10-26 13:48 | CPEKG ---
Test Reason : OPEN Blood Pressure : / mmHG Vent. Rate : 095 BPM Atrial Rate : 095 BPM P-R Int : 058 ms QRS Dur : 080 ms QT Int : 376 ms P-R-T Axes : 000 -16 040 degrees QTc Int : 473 ms Atrial tachycardia Borderline left axis deviation Minimal ST depression, lateral leads Confirmed by Alexx Guzmán ([id number]) on 10/26/2018 1:47:54 PM Referred By: Elly Grant Confirmed By:Alexx Guzmán
--- NOTE | 2018-10-26 15:00 | PDCARPN ---
Cardiology Progress Note Chief Complaint: Patient reporting shortness of breath improved. Assessment/Plan: Assessment: 83 year old male with significant past history of type 1 diabetes, hypertension , hyperlipidemia. Admitted 10/11/2018 for DKA. Early hospital course diagnosis atrial fibrillation incomplete heart. 1st 24 hr demonstrated bradycardia, with heart rates in the 40. Temporary pacer wire was inserted. Temporary patient wearing DC 2 days later knee began to develop a flutter/a tach with RVR. Echo 10/11/2017: Normal LV size common normal LV systolic function with EF 63%. LA and RA are both normal size. Severe mitral annular calcification. Trivial MR. Mild calcified aortic valve stenosis. Moderate TR. RVSP of 35 mm Hg. RAUL cardioversion 10/22/2017: Successful conversion to sinus rhythm with synchronous cardioversion with 200 joules. 10/26/2018: Patient reporting improvement in shortness of breath, peripheral edema has significantly improved. He denies of any chest pressure, pain, or symptoms suggesting of ischemia. Continues cardiac monitoring showing he has very pressure between first-degree AV block pressure and second-degree heart block type 1. No malignant pauses noted. No other malignant arrhythmias. Laboratories today showing sodium 137, potassium 4.1, BUN 25, creatinine 0.9, magnesium 2.0. Weight is down approximately 1.2 kilos from yesterday. Output remains greater than input. Chest x-ray today showing improvement in interstitial edema, persistent left basilar consolidation trace bilateral pleural effusions. Plan: 1. A-flutter/A tach: Status post cardioversion, maintaining sinus rhythm. Significant first-degree AV block and occasional second-degree heart block type 1. Patient is asymptomatic. Digoxin and atenolol discontinued. Would hold any further beta-lavelle, digoxin or non dihydropyridine calcium channel lavelle. Continue on anticoagulation of Eliquis. 2. Transient complete heart block: Temporary pacing required during DKA for complete heart block. No recurrence. Post cardioversion patient noted to have a significant prolonged first-degree AV block (QUIANA greater than 300 milliseconds ) and second-degree heart block type 1 with no pauses greater than 2 sec. Asymptomatic. I appreciate electrophysiology consultation. Patient should have a 30 day monitor upon discharge for evaluation of any further arrhythmias. 3. Acute on chronic diastolic heart failure: BNP on admission was a 2970, down to 2900 on 10/18. Continues to have improvement in peripheral edema. Chest x- ray showing improvement in interstitial edema. Continue on IV Lasix. Consideration of transitioning to oral Lasix tomorrow. Potassium and magnesium replacement therapy ordered. Repeat BMP and magnesium level in a.m.. 4. Hypertension: Improved on home dose of lisinopril and increased dose of amlodipine at 5 mg p.o. Twice daily. 5. DKA: resolved. 6. Type 1 diabetes: Insulin therapy per hospitalist services. 7. Hyperlipidemia: Fasting lipid panel showing adequate suppression of LDL. Continue on home dose Lipitor. 10/26/18 14:57 Subjective: Patient denies of any chest pressure, pain, or symptoms suggesting of ischemia. Patient reporting SOB ins improved, peripheral edema has also improved. Denies of any lightheadedness, near-syncope or syncopal events. Reports no palpitations. Reviewed/Discussed With: hospitalist (Dr Collier), other (Dr Brar and Dr Guerrero) Objective: Vital Signs (8 Hrs) Temp Pulse Resp BP Pulse Ox 10/26/18 14:52 36.5 C 57 L 20 120/59 L 99 10/26/18 11:15 36.7 C 77 10 L 144/51 H 96 10/26/18 08:23 108/48 L 10/26/18 08:22 108/48 L 10/26/18 07:22 36.9 C 65 17 108/48 L 91 L Intake/Output (24 Hrs) 10/25/18 10/26/18 10/27/18 05:59 05:59 05:59 Intake Total 600 250 Output Total 2450 1600 Balance -1850 250 -1600 Intake: Oral (ml) 600 150 IV Infused (ml) 100 Magnesium Sulf 1 gm/ 100 Dextrose 100 ml @ 100 mls /hr IV ONCE ONE Rx#: [id number] Output: Urine (ml) 2450 1600 Catheter 2450 1600 Other: Weight 83.2 kg 81.9 kg Result Diagrams: 10/23/18 04:15 10/26/18 04:30 - Physical Exam Constitutional: WDWN, no apparent distress Ears, Nose, Mouth, Throat: moist mucous membranes Cardiovascular: no murmurs (2/6 left sternal border), irregularly irregular ( Second-degree heart block type 1 with ventricular rate greater than 60 BPM), jugular vein distention (4 cm above sternal notch), pulses symmetric bilat Peripheral Pulses: 1+: dorsalis-pedis (R), dorsalis-pedis (L), 2+: carotid (R), carotid (L) Respiratory: clear to auscultate bilat, no crackles, no wheezes, other (No accessary muscle use, no intercostal muscle retraction noted.) Gastrointestinal: normoactive bowel sounds Skin: warm, No no edema (+2 radial pulses bilateral) Neurologic: AAOx3 Psychiatric: cooperative, interactive, following commands ICD10 Worksheet Patient Problems: Problems Problem Status Onset Unresponsive Acute Respiratory failure Acute Hyperglycemia Acute DKA (diabetic ketoacidoses) Acute Closed comminuted intertrochanteric fracture of femur Acute
--- NOTE | 2018-10-26 15:42 | ASMTCMCOM ---
CM Note CM Note Notes: Patient will need to be off IV Diuretics for 24 hours before discharge per [facility]. This is not negotiable. Spoke with Fiorella from [facility] and they are planning to take the patient as soon as the requirement is fullfilled. CM will follow. Date Signed: 10/26/2018 03:42 PM Electronically Signed By:Anya Nichols LCSW
--- NOTE | 2018-10-26 16:59 | HOSPPROG ---
Hospitalist Progress Note Assessment/Plan: * DKA -resolved * AFib -s/p cardioversion -Eliquis * Transient heart block -s/p temporary pacing - no evidence for recurrence -30 day monitor at discharge * Metabolic encephalopathy -resolved per family * Acute respiratory failure -s/p vent -now extubated, stable * DM 1 -Lantus - reduce dose due to am hypoglycemia -Jean to increased DM monitoring given severe DKA presentation * Hypernatremia -resolved * ARF -creatinine 2.1 on admission - now resolved * Acute on chronic diastolic CHF -IV Lasix - diuresing well -still 3-4+ edema and pulmonary edema * HTN -norvasc added -hold atenolol/digoxin per cardiology due to 1st degree AVB, occ 2nd degree type 1 -may need eventual PCM - need outpatient event monitoring per EP * Rhabdo - due to prolonged down time -improved * Possible TIA -transient RUE weakness -now on Eliquis given afib * Urinary retention -replace moreau -Flomax restarted -DC to SNF with moreau - voiding trial 1 week Subjective: Cough is bad, often occurs after drinking liquids Objective: Vital Signs Temp Pulse Resp BP Pulse Ox 36.5 C 57 L 20 120/59 L 99 10/26/18 14:52 10/26/18 14:52 10/26/18 14:52 10/26/18 14:52 10/26/18 14:52 Laboratory Results 10/23/18 04:15 10/26/18 04:30 10/25/18 10/26/18 10/27/18 05:59 05:59 05:59 Intake Total 600 250 Output Total 2450 1600 Balance -1850 250 -1600 PT 13.8 SEC (12.0-15.0) 10/22/18 03:50 INR 1.04 (0.83-1.16) 10/22/18 03:50 CXR viewed, my personal interpretation is - mild persistent CHF d/w DR. Guerrero - discharge to [facility] for event monitor - may need PCM in future if HB continues to degenerate - Physical Exam Constitutional: no apparent distress, appears nourished, not in pain Cardiovascular: regular rate and rhythym, no murmur, rub, or gallop Respiratory: expiratory wheeze, inspiratory crackles, respiratory distress, No rhonchi Gastrointestinal: normoactive bowel sounds, soft, non-tender abdomen, no palpable masses Skin: no rashes or abrasions, no fluctuance, no induration Neurologic: AAOx3, sensation intact bilaterally Psychiatric: interacting appropriately, not anxious, not encephalopathic, thought process linear ICD10 Worksheet Patient Problems: Problems Problem Status Onset Unresponsive Acute Respiratory failure Acute Hyperglycemia Acute DKA (diabetic ketoacidoses) Acute Closed comminuted intertrochanteric fracture of femur Acute
[2018-10-26] MEDS: MELATONIN 3 MG TAB PO SCH (20:39)
[2018-10-27] MEDS: FUROSEMIDE 20 MG/2 ML VIAL IVP SCH (06:10)
[2018-10-27] MEDS: INSULIN LISPRO 100 UNIT/ML SC SCH ×3 (08:08→18:34)
--- NOTE | 2018-10-27 08:54 | PDCARPN ---
Cardiology Progress Note Assessment/Plan: Assessment: #sinus rhythm with low-grade Wenckebach AV block #persistent AFib sp cardioversion #DM1 presenting with DKA #HTN #acute on chronic diastolic heart failure Plan: -continue tele monitoring -followup TSH/T4 -plan for outpatient cardiology followup (will need [facility]), with tentative plan for 2 week ambulatory monitor -continue eliquis post cardioversion 10/27/18 08:54 10/27/18 08:56 Subjective: ELECTROPHYSIOLOGY PROGRESS NOTE No acute events last 24hrs. Tele with ongoing SR 60-80s, low grade Wenckebach, up to 2:1 briefly. No complaints of lightheadedness. Walked with PT yesterday, feels he did OK with this. Objective: Vital Signs (8 Hrs) Temp Pulse Resp BP Pulse Ox 10/27/18 07:54 36.4 C 72 22 H 118/59 L 92 10/27/18 04:00 36.7 C 63 18 118/54 L 94 Intake/Output (24 Hrs) 10/26/18 10/27/18 10/28/18 05:59 05:59 05:59 Intake Total 250 1410 Output Total 2600 1000 Balance 250 -1190 -1000 Intake: Oral (ml) 150 1410 IV Infused (ml) 100 Magnesium Sulf 1 gm/ 100 Dextrose 100 ml @ 100 mls /hr IV ONCE ONE Rx#: [id number] Output: Urine (ml) 2600 1000 Catheter 1600 1000 Toilet 1000 Other: Weight 81.9 kg 82.463 kg Number of Voids Toilet 1 Result Diagrams: 10/23/18 04:15 10/27/18 04:28 Telemetry: see HPI - Physical Exam Constitutional: no apparent distress Eyes: EOMI Cardiovascular: regular rate and rhythm, no murmurs, no rubs, no gallops, other (2+ edema BLE) Peripheral Pulses: 2+: dorsalis-pedis (R), dorsalis-pedis (L) Respiratory: other (dry crackles L>R) Gastrointestinal: normoactive bowel sounds Skin: no rashes Neurologic: AAOx3, CN II-XII grossly intact Psychiatric: cooperative, interactive ICD10 Worksheet Patient Problems: Problems Problem Status Onset DKA (diabetic ketoacidoses) Acute Hyperglycemia Acute Respiratory failure Acute Unresponsive Acute Closed comminuted intertrochanteric fracture of femur Acute
[2018-10-27] MEDS: FLUTICASONE/SALMETER 250/50MCG DISKUS IH SCH ×2 (09:02→22:07)
[2018-10-27] MEDS: INSULIN GLARGINE 100 UNITS/ML UNIT SC SCH (09:36)
[2018-10-27] MEDS: metFORMIN HCL 500 MG TAB PO SCH ×2 (09:39→18:38)
[2018-10-27] MEDS: LISINOPRIL 40 MG TAB PO SCH (09:40)
[2018-10-27] MEDS: THIAMINE HCL 100 MG TAB PO SCH (09:40)
[2018-10-27] MEDS: APIXABAN 5 MG TAB PO SCH ×2 (09:42→21:49)
[2018-10-27] MEDS: TAMSULOSIN HCL 0.4 MG CAP PO SCH (09:42)
[2018-10-27] MEDS: ATORVASTATIN CALCIUM 10 MG TAB PO SCH (09:42)
[2018-10-27] MEDS: amLODIPine BESYLATE 5 MG TAB PO SCH ×2 (09:42→21:48)
--- NOTE | 2018-10-27 11:24 | CPEKG ---
Test Reason : OPEN Blood Pressure : / mmHG Vent. Rate : 073 BPM Atrial Rate : 000 BPM P-R Int : 200 ms QRS Dur : 084 ms QT Int : 522 ms P-R-T Axes : 000 -28 000 degrees QTc Int : 576 ms Atrial fibrillation Borderline left axis deviation Nonspecific T abnrm, anterolateral leads Prolonged QT interval Confirmed by Alexx Guzmán ([id number]) on 10/27/2018 11:24:38 AM Referred By: Elly Grant Confirmed By:Alexx Guzmán
--- NOTE | 2018-10-27 11:25 | CPEKG ---
Test Reason : OPEN Blood Pressure : / mmHG Vent. Rate : 074 BPM Atrial Rate : 074 BPM P-R Int : 312 ms QRS Dur : 094 ms QT Int : 418 ms P-R-T Axes : 042 -25 197 degrees QTc Int : 464 ms Sinus rhythm Prolonged MD interval Borderline left axis deviation Nonspecific T abnrm, anterolateral leads Confirmed by Alexx Guzmán ([id number]) on 10/27/2018 11:25:01 AM Referred By: Elly Grant Confirmed By:Alexx Guzmán
--- NOTE | 2018-10-27 11:29 | PDCARPN ---
Cardiology Progress Note Chief Complaint: Patient reports he would like to go home. Assessment/Plan: Assessment: 83 year old male with significant past history of type 1 diabetes, hypertension , hyperlipidemia. Admitted 10/11/2018 for DKA. Early hospital course diagnosis atrial fibrillation incomplete heart. 1st 24 hr demonstrated bradycardia, with heart rates in the 40. Temporary pacer wire was inserted. Temporary patient wearing DC 2 days later knee began to develop a flutter/a tach with RVR. Echo 10/11/2017: Normal LV size common normal LV systolic function with EF 63%. LA and RA are both normal size. Severe mitral annular calcification. Trivial MR. Mild calcified aortic valve stenosis. Moderate TR. RVSP of 35 mm Hg. RAUL cardioversion 10/22/2017: Successful conversion to sinus rhythm with synchronous cardioversion with 200 joules. He reports no chest pressure, pain, or symptoms suggesting of ischemia. Reports no significant shortness of breath. Improvement in peripheral edema. Output remains greater than input. Weight up 0.5 kilos. Sodium is down 133, potassium stable at 3.9, BUN 24, creatinine 1.0, calcium 8.2. Patient maintaining sinus rhythm at this time, to have episodes of Wenckebach. No pauses noted greater than 2 sec, patient asymptomatic. Plan: 1. A-flutter/A tach: Status post cardioversion, maintaining sinus rhythm. Significant first-degree AV block and occasional second-degree heart block type 1. Patient is asymptomatic. Digoxin and atenolol discontinued. Would hold any further beta-lavelle, digoxin or non dihydropyridine calcium channel lavelle. Continue on anticoagulation of Eliquis. 2. Transient complete heart block: Temporary pacing required during DKA for complete heart block. No recurrence. Post cardioversion patient noted to have a significant prolonged first-degree AV block (QUIANA greater than 300 milliseconds ) and second-degree heart block type 1 with no pauses greater than 2 sec. Asymptomatic. I appreciate electrophysiology consultation. Patient should have a 30 day monitor upon discharge for evaluation of any further arrhythmias. Will need to follow up with [facility] services. I have asked discharge planning to make arranged as for him to be seen by them within a week after discharge 3. Acute on chronic diastolic heart failure: Continues to have improvement in peripheral edema. Transition to oral Lasix today. Continue monitoring weights , I&Os, electrolytes. 4. Hypertension: Improved on home dose of lisinopril and increased dose of amlodipine at 5 mg p.o. Twice daily. 5. DKA: resolved. 6. Type 1 diabetes: Insulin therapy per hospitalist services. 7. Hyperlipidemia: Fasting lipid panel showing adequate suppression of LDL. Continue on home dose Lipitor. 10/27/18 11:27 Subjective: He denies of any chest pressure pain, symptoms suggesting ischemia. Reports peripheral edema has improved. States continues to have mild GUTIERRES. Reviewed/Discussed With: other (Dr Brar) Objective: Vital Signs (8 Hrs) Temp Pulse Resp BP Pulse Ox 10/27/18 09:42 114/46 L 10/27/18 09:40 114/46 L 10/27/18 09:03 86 16 93 10/27/18 07:54 36.4 C 72 22 H 118/59 L 92 10/27/18 04:00 36.7 C 63 18 118/54 L 94 Intake/Output (24 Hrs) 10/26/18 10/27/18 10/28/18 05:59 05:59 05:59 Intake Total 250 1410 360 Output Total 2600 1825 Balance 250 -1190 -1465 Intake: Oral (ml) 150 1410 360 IV Infused (ml) 100 Magnesium Sulf 1 gm/ 100 Dextrose 100 ml @ 100 mls /hr IV ONCE ONE Rx#: [id number] Output: Urine (ml) 2600 1825 Catheter 1600 1825 Toilet 1000 Other: Weight 81.9 kg 82.463 kg Number of Voids Toilet 1 Result Diagrams: 10/23/18 04:15 10/27/18 04:28 - Physical Exam Constitutional: no apparent distress Ears, Nose, Mouth, Throat: moist mucous membranes Cardiovascular: regular rate and rhythm, No jugular vein distention Peripheral Pulses: 1+: dorsalis-pedis (R), dorsalis-pedis (L), 2+: carotid (R), carotid (L) Respiratory: other (Mild expiratory wheezing, no rhonchi, rales noted. No accessary muscle use, no intercostal muscle retraction.) Skin: no rashes, warm, No no edema (+2 peripheral edema bilateral lower extremities to knees.) Neurologic: AAOx3 Psychiatric: cooperative, interactive, following commands ICD10 Worksheet Patient Problems: Problems Problem Status Onset DKA (diabetic ketoacidoses) Acute Hyperglycemia Acute Respiratory failure Acute Unresponsive Acute Closed comminuted intertrochanteric fracture of femur Acute
--- NOTE | 2018-10-27 11:50 | CPEKG ---
Test Reason : OPEN Blood Pressure : / mmHG Vent. Rate : 078 BPM Atrial Rate : 077 BPM P-R Int : 301 ms QRS Dur : 085 ms QT Int : 386 ms P-R-T Axes : 040 -20 179 degrees QTc Int : 440 ms Sinus rhythm Prolonged MD interval Borderline left axis deviation Nonspecific T abnormalities, lateral leads Confirmed by Alexx Guzmán ([id number]) on 10/27/2018 11:49:49 AM Referred By: Elly Grant Confirmed By:Alexx Guzmán
[2018-10-27] MEDS: FUROSEMIDE 40 MG TAB PO SCH (12:30)
--- NOTE | 2018-10-27 15:53 | HOSPPROG ---
Hospitalist Progress Note Assessment/Plan: * DKA -resolved * AFib -s/p cardioversion -Eliquis * Transient heart block -s/p temporary pacing - no evidence for recurrence -30 day monitor at discharge, will need to f/u with [facility] w/i one week * Metabolic encephalopathy -resolved per family * Acute respiratory failure -s/p vent -now extubated, stable * DM 1 -Lantus - reduce dose due to am hypoglycemia -Jean to increased DM monitoring given severe DKA presentation * Hypernatremia -resolved * ARF -creatinine 2.1 on admission - now resolved * Acute on chronic diastolic CHF -change IV Lasix to PO Lasix today, check labs in a.m, determine response to changing to PO in a.m * HTN -norvasc added -hold atenolol/digoxin per cardiology due to 1st degree AVB, occ 2nd degree type 1 -may need eventual PCM - need outpatient event monitoring per EP * Rhabdo - due to prolonged down time -improved * Possible TIA -transient RUE weakness -now on Eliquis given afib * Urinary retention -replace moreau -Flomax restarted -DC with moreau - will need f/u with [facility] Dispo: per , [facility] has refused SNF recommendation per our therapy team. We will monitor overnight and determine if appropriate for d/c home tomorrow. Subjective: feeling better. no cp. + leg swelling Objective: Vital Signs Temp Pulse Resp BP Pulse Ox 36.6 C 72 16 125/59 H 94 10/27/18 15:33 10/27/18 15:33 10/27/18 15:33 10/27/18 15:33 10/27/18 15:33 Laboratory Results 10/23/18 04:15 10/27/18 04:28 10/26/18 10/27/18 10/28/18 05:59 05:59 05:59 Intake Total 250 1410 710 Output Total 2600 1825 Balance 250 -1190 -1115 PT 13.8 SEC (12.0-15.0) 10/22/18 03:50 INR 1.04 (0.83-1.16) 10/22/18 03:50 - Physical Exam Constitutional: no apparent distress Eyes: PERRL, EOMI Ears, Nose, Mouth, Throat: moist mucous membranes, hearing normal Cardiovascular: regular rate and rhythym, edema Respiratory: no respiratory distress, no rales or rhonchi, clear to auscultation Gastrointestinal: normoactive bowel sounds Skin: warm Neurologic: AAOx3 Psychiatric: interacting appropriately, not anxious, not encephalopathic Lymph, Heme, Immunologic: No petechiae ICD10 Worksheet Patient Problems: Problems Problem Status Onset DKA (diabetic ketoacidoses) Acute Hyperglycemia Acute Respiratory failure Acute Unresponsive Acute Closed comminuted intertrochanteric fracture of femur Acute
--- NOTE | 2018-10-27 17:07 | ASMTCMCOM ---
CM Note CM Note Notes: 10/27/2018 Case Management Note Per Sam Alexander pt switched to oral diuretics today. Requested auth from [place] which was denied for SNF rehab. Provided MD pager number for [place] to discuss. Auth contact for [place] SNF is [phone]. Requested phone number/provider to contact for cardiac monitoring recommended by Sam Alexander. Shelley from [place] wanted to address d/c placement prior to providing info for [place] cardiac team. Pt PCP is Dr. Laisha Allred. Pt may need to d/c straight to PCP office for assessment of need for shelter monitor. Or per Shelley, [place] may send someone to start the monitor here at [facility] or at SNF rehab if approved after doc to doc call today. Left VM for daughter Ivett with updates. Case Management d/c poc: to be determined. Case Management to follow. Date Signed: 10/27/2018 05:06 PM Electronically Signed By:Bekah Jones RN
[2018-10-27] MEDS: MELATONIN 3 MG TAB PO SCH (21:48)
[2018-10-28] MEDS: INSULIN LISPRO 100 UNIT/ML SC SCH ×3 (08:41→18:01)
[2018-10-28] MEDS: FLUTICASONE/SALMETER 250/50MCG DISKUS IH SCH ×2 (08:41→20:43)
[2018-10-28] MEDS: FUROSEMIDE 40 MG TAB PO SCH ×2 (09:15→09:56)
[2018-10-28] MEDS: INSULIN GLARGINE 100 UNITS/ML UNIT SC SCH (09:42)
[2018-10-28] MEDS: TAMSULOSIN HCL 0.4 MG CAP PO SCH (09:43)
[2018-10-28] MEDS: metFORMIN HCL 500 MG TAB PO SCH ×2 (09:43→18:01)
[2018-10-28] MEDS: LISINOPRIL 40 MG TAB PO SCH (09:43)
[2018-10-28] MEDS: ATORVASTATIN CALCIUM 10 MG TAB PO SCH (09:44)
[2018-10-28] MEDS: amLODIPine BESYLATE 5 MG TAB PO SCH ×2 (09:44→20:24)
[2018-10-28] MEDS: THIAMINE HCL 100 MG TAB PO SCH (09:44)
[2018-10-28] MEDS: APIXABAN 5 MG TAB PO SCH ×2 (09:45→20:25)
--- NOTE | 2018-10-28 10:06 | PDCARPN ---
Cardiology Progress Note Chief Complaint: Patient reports he would like to go home. Assessment/Plan: Assessment: 83 year old male with significant past history of type 1 diabetes, hypertension , hyperlipidemia. Admitted 10/11/2018 for DKA. Early hospital course diagnosis atrial fibrillation incomplete heart. 1st 24 hr demonstrated bradycardia, with heart rates in the 40. Temporary pacer wire was inserted. Temporary pacer wire was DC 2 days later, with the onset of AFib/flutter with RVR. Echo 10/11/2017: Normal LV size, normal LV systolic function with EF 63%. LA and RA are both normal size. Severe mitral annular calcification. Trivial MR. Mild calcified aortic valve stenosis. Moderate TR. RVSP of 35 mm Hg. RAUL cardioversion 10/22/2017: Successful conversion to sinus rhythm with synchronous cardioversion with 200 joules. 10/28/2018: Patient reports no chest pressure pain or symptoms suggesting of ischemia. Stating SOB improving. Continues cardiac monitoring showing sinus rhythm with prolonged first-degree AV block, occasional episode of second- degree heart block type 1. No pauses greater than 2 sec. No malignant arrhythmias. Patient is asymptomatic. Patient's weight is down approximately 1 kilos from yesterday, output remains greater than input. Laboratories today showing potassium at 4.0, CO2 at 32, BUN 21, creatinine 0.9, glucose 132, calcium 8.3, magnesium 1.9. Plan: 1. A-flutter/A tach: Status post cardioversion, maintaining sinus rhythm. Significant first-degree AV block and occasional second-degree heart block type 1. Patient is asymptomatic. Digoxin and atenolol discontinued. Would hold any further beta-lavelle, digoxin or non dihydropyridine calcium channel lavelle. Continue on anticoagulation of Eliquis. 2. Transient complete heart block: Temporary pacing required during DKA for complete heart block. No recurrence. Post cardioversion patient noted to have a significant prolonged first-degree AV block (QUIANA greater than 300 milliseconds ) and second-degree heart block type 1 with no pauses greater than 2 sec. Asymptomatic. I appreciate electrophysiology consultation. Patient should have a 30 day monitor upon discharge for evaluation of any further arrhythmias. Will need to follow up with [facility] services. I have asked discharge planning to make arranged as for him to be seen by them within a week after discharge 3. Acute on chronic diastolic heart failure: Continues to improve. Peripheral edema is down. Patient transition to oral Lasix yesterday, CO2 mildly up, will back oral Lasix to 40 mg p.o. Q.day. Continue watching electrolyte renal function. I&Os. Daily weights. 4. Hypertension: Improved on home dose of lisinopril and increased dose of amlodipine at 5 mg p.o. Twice daily. 5. DKA: resolved. 6. Type 1 diabetes: Insulin therapy per hospitalist services. 7. Hyperlipidemia: Fasting lipid panel showing adequate suppression of LDL. Continue on home dose Lipitor. 10/28/18 10:03 Subjective: He denies of any chest pressure or pain. Reports SOB improving. Denies of any palpitations. Denies of any lightheadedness, near-syncope or syncopal events. Reviewed/Discussed With: other (Dr Brar) Objective: Vital Signs (8 Hrs) Temp Pulse Resp BP Pulse Ox 10/28/18 09:44 125/57 H 10/28/18 09:43 125/57 H 10/28/18 08:43 72 18 92 10/28/18 08:21 36.8 C 79 10 L 125/57 H 90 L 10/28/18 04:00 36.9 C 83 18 130/54 H 91 L Intake/Output (24 Hrs) 10/27/18 10/28/18 10/29/18 05:59 05:59 05:59 Intake Total 1410 1110 Output Total 2600 3825 Balance -1190 -2715 Intake: Oral (ml) 1410 1110 Output: Urine (ml) 2600 3825 Catheter 1600 3825 Toilet 1000 Other: Weight 81.9 kg 80.9 kg Number of Voids Toilet 1 Result Diagrams: 10/23/18 04:15 10/28/18 03:53 - Physical Exam Constitutional: WDWN, no apparent distress Ears, Nose, Mouth, Throat: moist mucous membranes Cardiovascular: regular rate and rhythm, no rubs, systolic murmur (1/6 left sternal border.), jugular vein distention (4 cm above sternal notch), pulses symmetric bilat, No carotid bruit Peripheral Pulses: 1+: dorsalis-pedis (R), dorsalis-pedis (L), 2+: carotid (R), carotid (L) Respiratory: other (Lungs are clear to auscultation, no rhonchi, rales, or wheezing noted.) Gastrointestinal: normoactive bowel sounds Skin: warm, No no edema (+1 peripheral edema bilateral lower extremities to knees) Neurologic: AAOx3 Psychiatric: cooperative, interactive, following commands ICD10 Worksheet Patient Problems: Problems Problem Status Onset Unresponsive Acute Respiratory failure Acute Hyperglycemia Acute DKA (diabetic ketoacidoses) Acute Closed comminuted intertrochanteric fracture of femur Acute
--- NOTE | 2018-10-28 13:02 | PDCARPN ---
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 No complaints for me. Tele with ongoing SR ~80s, low-grade Wenckebach, occasional monomorphic PVCs. Objective: Vital Signs (8 Hrs) Temp Pulse Resp BP Pulse Ox 10/28/18 12:17 36.6 C 74 17 126/61 H 92 10/28/18 09:44 125/57 H 10/28/18 09:43 125/57 H 10/28/18 08:43 72 18 92 10/28/18 08:21 36.8 C 79 10 L 125/57 H 90 L Intake/Output (24 Hrs) 10/27/18 10/28/18 10/29/18 05:59 05:59 05:59 Intake Total 1410 1110 Output Total 2600 3825 Balance -1190 -2715 Intake: Oral (ml) 1410 1110 Output: Urine (ml) 2600 3825 Catheter 1600 3825 Toilet 1000 Other: Weight 81.9 kg 80.9 kg Number of Voids Toilet 1 Result Diagrams: 10/23/18 04:15 10/28/18 03:53 Telemetry: see HPI - Physical Exam Constitutional: no apparent distress Eyes: EOMI Ears, Nose, Mouth, Throat: moist mucous membranes Cardiovascular: regular rate and rhythm, no murmurs, no rubs, no gallops Respiratory: other (dry crackles L>R) Gastrointestinal: normoactive bowel sounds Skin: no rashes Neurologic: AAOx3 Psychiatric: cooperative, interactive, following commands ICD10 Worksheet Patient Problems: Problems Problem Status Onset DKA (diabetic ketoacidoses) Acute Hyperglycemia Acute Respiratory failure Acute Unresponsive Acute Closed comminuted intertrochanteric fracture of femur Acute
--- NOTE | 2018-10-28 15:17 | HOSPPROG ---
Hospitalist Progress Note Assessment/Plan: * DKA -resolved * AFib -s/p cardioversion -Eliquis * Transient heart block -s/p temporary pacing - no evidence for recurrence -30 day monitor at discharge, will need to f/u with [facility] EP w/i one week * Metabolic encephalopathy -resolved per family, although he still appears to have a baseline deficit and likely unable to manage his own medications at home * Acute respiratory failure -s/p vent -now extubated, stable * DM 1 -Lantus - reducd dose due to am hypoglycemia * Hypernatremia -resolved * ARF -creatinine 2.1 on admission - now resolved * Acute on chronic diastolic CHF -Now on PO Lasix. cont current dose for now * HTN -norvasc added -hold atenolol/digoxin per cardiology due to 1st degree AVB, occ 2nd degree type 1 -may need eventual PCM - need outpatient event monitoring per EP * Rhabdo - due to prolonged down time -improved * Possible TIA -transient RUE weakness -now on Eliquis given afib * Urinary retention -trial off Iqbal today -Flomax restarted -if recurs, will need to replace Iqbal. Dispo: per CM, [facility] has refused SNF recommendation per our therapy team. SNF was recommended again today by our therapy teams who reevaluated him. I had a conversation with [facility] today as I was requested to do so. Once again they have refused SNF Subjective: no cp or sob. no nause or vomiting. very weak. Requries assistance with ambulation Objective: Vital Signs Temp Pulse Resp BP Pulse Ox 36.6 C 74 17 126/61 H 92 10/28/18 12:17 10/28/18 12:17 10/28/18 12:17 10/28/18 12:17 10/28/18 12:17 Laboratory Results 10/23/18 04:15 10/28/18 03:53 10/27/18 10/28/18 10/29/18 05:59 05:59 05:59 Intake Total 1410 1110 Output Total 2600 6322 650 Balance -1190 -2715 -650 PT 13.8 SEC (12.0-15.0) 10/22/18 03:50 INR 1.04 (0.83-1.16) 10/22/18 03:50 - Physical Exam Constitutional: no apparent distress Eyes: PERRL Ears, Nose, Mouth, Throat: moist mucous membranes, hearing normal Cardiovascular: regular rate and rhythym, No edema Respiratory: no respiratory distress Gastrointestinal: normoactive bowel sounds, No distension Skin: warm Musculoskeletal: generalized weakness Psychiatric: interacting appropriately Lymph, Heme, Immunologic: No petechiae ICD10 Worksheet Patient Problems: Problems Problem Status Onset DKA (diabetic ketoacidoses) Acute Hyperglycemia Acute Respiratory failure Acute Unresponsive Acute Closed comminuted intertrochanteric fracture of femur Acute
--- NOTE | 2018-10-28 17:19 | ASMTCMCOM ---
CM Note CM Note Notes: 10/28/2018 Case Management Note Pt denied auth by [facility] for SNF rehab. Dr. Conde discussed with [facility] without success. Dominick instructed case management that [facility] is not legally allowed to decline pt return. [facility] recommended that case management place pt in long term care social worker care as dominick did not feel pt had skilled rehab needs. Called Dora NINO at [facility] [phone] ext [phone]. Dora agreeable to taking pt back with the addition of home health. [facility] fax number [phone]. All d/c orders need to faxed via [email or web address]. Faxed referral to [facility] home health, a [facility] approved home health. Contacted Lisa arthur for [facility] who is having [facility] coat feller review case prior to acceptance. Contacted Dominick for scheduling of panel monitor. Eventually transferred to Dr. Allred's office PCP for pt for panel monitor order. Faxed records to PCP office for review [phone]. Requested PCP office schedule cardiology appointment. [facility] can be reached at [phone]. Dr. Allred can be reached at [phone]. Notified daughter Ivett of changes in dispo plan. Ivett working on family transport for late tomorrow afternoon. Ivett working on family member to stay with pt first few days after discharge at [facility]. Case Management d/c poc: return to [facility] with addition of [facility] pending acceptance. Case Management to follow. Date Signed: 10/28/2018 05:18 PM Electronically Signed By:Bekah Jones RN
[2018-10-28] MEDS ORDERED: BISACODYL 10 MG SUPP PR PRN (18:10)
[2018-10-28] MEDS ORDERED: MAGNESIUM HYDROXIDE 30 ML UDCUP PO PRN (18:10)
[2018-10-28] MEDS ORDERED: POLYETHYLENE GLYCOL 3350 17 GM PKT PO PRN (18:10)
[2018-10-28] MEDS ORDERED: LACTULOSE 20 GM/30 ML UDCUP PO PRN (18:10)
[2018-10-28] MEDS: MELATONIN 3 MG TAB PO SCH (20:25)
[2018-10-28] MEDS: SENNOSIDES/DOCUSATE SODIUM TAB PO SCH (20:25)
[2018-10-29] MEDS: FLUTICASONE/SALMETER 250/50MCG DISKUS IH SCH (08:11)
[2018-10-29] MEDS: FUROSEMIDE 40 MG TAB PO SCH (08:21)
[2018-10-29] MEDS: metFORMIN HCL 500 MG TAB PO SCH (08:21)
[2018-10-29] MEDS: ATORVASTATIN CALCIUM 10 MG TAB PO SCH (08:21)
[2018-10-29] MEDS: SENNOSIDES/DOCUSATE SODIUM TAB PO SCH (08:22)
[2018-10-29] MEDS: amLODIPine BESYLATE 5 MG TAB PO SCH (08:22)
[2018-10-29] MEDS: APIXABAN 5 MG TAB PO SCH (08:22)
[2018-10-29] MEDS: TAMSULOSIN HCL 0.4 MG CAP PO SCH (08:22)
[2018-10-29] MEDS: INSULIN LISPRO 100 UNIT/ML SC SCH ×2 (08:22→12:43)
[2018-10-29] MEDS: LISINOPRIL 40 MG TAB PO SCH (08:22)
[2018-10-29] MEDS: THIAMINE HCL 100 MG TAB PO SCH (08:22)
[2018-10-29] MEDS: INSULIN GLARGINE 100 UNITS/ML UNIT SC SCH (08:27)
--- NOTE | 2018-10-29 12:42 | PDDCSUM ---
Discharge Summary Discharge Summary: HPI/HOSPITAL COURSE: A 82-year-old gentleman with past medical history significant for diabetes type 1, HTN, HLD who [facility] unresponsive with DKA. He was admitted and treated accordingly. He had respiratory failure and was intubated. He had Hyperkalemia and htis was treaed. He had KYLE and received IVF. He was found to have a new diagnosis of Afib and cardiology was consulted. He had cardioversion Hospitalization was complicated by transient hear block which required temporary pacing. He will need a classroom monitor and he has f/u next week with [facility] for this. The pt is now better, although not back to baseline. Please see below for details per problem list. He cannot take care of himself safely at home. DDx: * DKA -resolved * AFib -s/p cardioversion -Eliquis * Transient heart block -s/p temporary pacing - no evidence for recurrence -30 day monitor at discharge, will need to f/u with [facility] EP w/i one week * Metabolic encephalopathy -resolved per family, although he still appears to have a baseline deficit and likely unable to manage his own medications at home * Acute respiratory failure -s/p vent -now extubated, stable * DM 1 -Lantus - reduced due to hypoglycemia * Hypernatremia -resolved * ARF -creatinine 2.1 on admission - now resolved * Acute on chronic diastolic CHF -Now on PO Lasix. * HTN -norvasc added -hold atenolol/digoxin per cardiology due to 1st degree AVB, occ 2nd degree type 1 -may need eventual PCM - need outpatient event monitoring per EP * Rhabdo - due to prolonged down time -improved * Possible TIA -transient RUE weakness -now on Eliquis given afib * Urinary retention -failed trial off Iqbal. Iqbal replaced on 10/29. Tamsulosin incrased Exam: NAD AAOX3 RRR CTA B S/NT/ND MEDS: SEE MED REC TOTAL TIME SPENT ON D/C IS 40 MINUTES
--- NOTE | 2018-10-29 12:46 | PDCARPN ---
Cardiology Progress Note Chief Complaint: Patient states he would like to go home. Assessment/Plan: Assessment: 83 year old male with significant past history of type 1 diabetes, hypertension , hyperlipidemia. Admitted 10/11/2018 for DKA. Early hospital course diagnosis atrial fibrillation incomplete heart. 1st 24 hr demonstrated bradycardia, with heart rates in the 40. Temporary pacer wire was inserted. Temporary pacer wire was DC 2 days later, with the onset of AFib/flutter with RVR. Echo 10/11/2017: Normal LV size, normal LV systolic function with EF 63%. LA and RA are both normal size. Severe mitral annular calcification. Trivial MR. Mild calcified aortic valve stenosis. Moderate TR. RVSP of 35 mm Hg. RAUL cardioversion 10/22/2017: Successful conversion to sinus rhythm with synchronous cardioversion with 200 joules. 10/29/2018: Her he denies of any chest pain pressure or symptoms suggesting of ischemia. He reports no palpitations. Denies of any lightheadedness, near- syncope or syncopal events. Continues cardiac monitoring showing that he has maintained sinus rhythm with significant first-degree AV block. Brief episodes of second-degree heart block type 1 with no pauses greater than 2 sec. No other malignant arrhythmias or pauses. The output remains greater than input was. Weight is down approximately 0.6 kilos. Peripheral edema has improved . Sodium 135, potassium 4.5, chloride 98, CO2 30, BUN off pressor support 20, creatinine 0.9, glucose 241, calcium 9.1. Plan: 1. A-flutter/A tach: Status post cardioversion, maintaining sinus rhythm. Significant first-degree AV block and occasional second-degree heart block type 1. Patient is asymptomatic. Digoxin and atenolol discontinued. Would hold any further beta-lavelle, digoxin or non dihydropyridine calcium channel lavelle. Continue on anticoagulation of Eliquis. 2. Transient complete heart block: Temporary pacing required during DKA for complete heart block. No recurrence. Post cardioversion patient noted to have a significant prolonged first-degree AV block (QUIANA greater than 300 milliseconds ) and second-degree heart block type 1 with no pauses greater than 2 sec. Asymptomatic. I appreciate electrophysiology consultation. Patient should have a 30 day monitor upon discharge for evaluation of any further arrhythmias. Will need to follow up with [facility] services. I have asked discharge planning to make arranged as for him to be seen by them within a week after discharge 3. Acute on chronic diastolic heart failure: Continues to improve. Peripheral edema is down. With the exception of an infiltrate weight continues to drop. Output greater than input. Continue on current dose of the oral Lasix. 4. Hypertension: Improved on home dose of lisinopril and increased dose of amlodipine at 5 mg p.o. Twice daily. 5. DKA: resolved. 6. Type 1 diabetes: Insulin therapy per hospitalist services. 7. Hyperlipidemia: Fasting lipid panel showing adequate suppression of LDL. Continue on home dose Lipitor. Patient to be discharged today. Has requested that patient be seen by pain- free. Electrophysiology of her [facility] within the next week to for further evaluation of second-degree heart block type 1. For electrophysiology Services , Thursday have recommended that he be placed on a initial 30 day monitor for evaluation. 10/29/18 12:49 Subjective: He denies of any chest pain pressure symptoms suggesting of ischemia. To the he reports. No significant shortness of breath. His peripheral edema is improved significantly. Denies of any palpitations, lightheadedness near- syncope or syncopal events. Reviewed/Discussed With: hospitalist (Dr Conde), other (Dr Brar) Objective: Vital Signs (8 Hrs) Temp Pulse Resp BP Pulse Ox 10/29/18 11:40 36.6 C 88 20 117/65 96 10/29/18 08:16 80 12 93 10/29/18 07:19 36.4 C 90 12 130/64 H 97 10/29/18 06:10 94 10/29/18 06:08 87 L 10/29/18 05:30 89 L Intake/Output (24 Hrs) 10/28/18 10/29/18 10/30/18 05:59 05:59 05:59 Intake Total 1110 700 Output Total 3825 1690 Balance -7211 -990 Intake: Oral (ml) 1110 700 Output: Urine (ml) 3825 1690 Catheter 3825 950 Toilet 690 Urinal 50 Other: Weight 80.9 kg 80.3 kg Output Comment Catheter straight catheter-stopped draining, was clotted when cath removed Number of Voids Incontinence 1 Toilet 1 1 Number of Stools Toilet 1 1 Bladder Scan Volume (ml) Toilet 686 Post Void Residual Scan Volume (ml) Catheter 102 Toilet 413 484 Result Diagrams: 10/23/18 04:15 10/29/18 11:10 - Physical Exam Constitutional: WDWN, no apparent distress Ears, Nose, Mouth, Throat: moist mucous membranes Cardiovascular: regular rate and rhythm, no rubs, no gallops, systolic murmur (1 /6 left sternal border), jugular vein distention (4 cm above sternal), pulses symmetric bilat, No carotid bruit Peripheral Pulses: 1+: dorsalis-pedis (R), dorsalis-pedis (L), 2+: carotid (R), carotid (L) Respiratory: clear to auscultate bilat, no crackles, no wheezes Gastrointestinal: normoactive bowel sounds, no tenderness, no masses Skin: warm, No no edema (+1 peripheral edema to knees.) Musculoskeletal: no muscular tenderness Neurologic: AAOx3 Psychiatric: cooperative, interactive, following commands ICD10 Worksheet Patient Problems: Problems Problem Status Onset DKA (diabetic ketoacidoses) Acute Hyperglycemia Acute Respiratory failure Acute Unresponsive Acute Closed comminuted intertrochanteric fracture of femur Acute
--- NOTE | 2018-10-29 12:48 | PDIAF ---
- Diagnosis Diagnosis: CHF Code Status: Full Code - Medication Management Discharge Medications: electronically signed and located in the Home Medication List. - Orders Services needed: Home Care, Certified Claims Assistant, Physical Therapy, Occupational Therapy Home Care Face to Face: I certify that this patient was under my care and that I had the required [id number] encounter meeting the encounter requirements on the discharge day. My findings support the fact that the patient is homebound as defined in Home Care Face to Face Continued: CMS Chapter 7 Medicare Benefits Manual 30.1.1 , The condition of the patient is such that there exists a normal inability to leave home and consequently, leaving home would require a considerable and taxing effort. Diet Recommendation: no restrictions on diet Diet Texture: Dysphagia 2 - Mechanically Altered - Chopped, Ground, Thin Liquids , Meds Whole in Puree, Meds Crushed in Puree Additional Instructions: You have an appointment with Dr. Allred on 11/01/2018 at 9;30 am. You have an appointment on ThursdayNovember 02 at 3 pm at the [place] location for a band instrument repairer. [facility] will provide RN PT OT at [facility] [phone] Activity: as tolerated - Follow Up Care Current Providers and Referrals: Patient,NotPresent [Unknown] - As per Instructions
--- NOTE | 2018-10-29 14:11 | ASDISCHSUM ---
Discharge Information Plan Status:Home with Home Health Medically Cleared to Leave:10/28/2018 Discharge Date:10/28/2018 CM D/C Disposition:Home, Routine, Self-Care ADT D/C Disposition:Snf Facility Projected Discharge Date:10/15/2018 11:00 AM Transportation at D/C:Family Discharge Delay Reason: Follow-Up Date:10/15/2018 11:00 AM Discharge Slot: Final Diagnosis: Placement Information Referral Type:Assisted Living Residence Referral ID:[id number] Provider Name:[facility] Address 1:[address] Phone Number: Address 2: Fax Number: City:[place] Selection Factors: State:[place] Referral Type:*Intermediate/SNF Referral ID:[id number] Provider Name: Address 1: Phone Number: Address 2: Fax Number: City: Selection Factors: State: Referral Type:*Home Health Care Services Referral ID:[id number] Provider Name:[facility] ([facility] Address 1:[address] [address] Address 2: City:[place] Selection Factors: State:[place] Patient Contact Information Contact Name:GRACIA Relationship: Address:[address] Work Phone: City:[place] [facility] Phone: [facility]/Zip Code:[place] [address] Email: Financial Information Financial Class:Medicare Advantage Plans Primary Plan Desc:[employer] MED[employer]ARE ADV IP Primary Plan Number:[id number] Secondary Plan Desc: Secondary Plan Number: Assessment Information LACE LACE Length of stay for Answers: 14 days or more current admission Acuity / Level of Answers: Yes Care: Did the patient have an inpatient admission? Comorbidities - select Answers: Diabetes (uncontrolled or all that apply controlled) Moderate or severe liver or renal disease Other Notes: HTN; hyperlipidemia # of Emergency department Answers: 1-2 visits in the last 6 months Score: 17 Date Signed: 10/29/2018 02:10 PM Electronically Signed By:Bekah Jones RN [facility] Progress Note CM Note CM Note Notes: Patient found down by in their residence. He was unresponsive on arrival to ED, also found to be in diabetic ketoacidosis. He has intubated emergently and hours later an in-house stroke alert was called. Patient lives with his Lashell at [facility]. She has advanced dementia; however, the couple apparently manages their own medications. They have three local children, and daughter Ivett is [place]. Patient was at [facility] in February following a hip fracture, and his children report that he seems to have been declining since. Case Management will follow. Date Signed: 10/11/2018 11:45 AM Electronically Signed By:Shivani Ames RN [facility] Progress Note CM Note CM Note Notes: Family meeting held today, see note by Spiritual Care in notes section for more information. Copies of [facility] paperwork were provided by family and placed in chart. Pt's three children are assigned Co-agents. CM provided letter of hospitalization. Discharge needs TBD at this time. CM to follow. Plan: TBD Date Signed: 10/12/2018 03:07 PM Electronically Signed By:SHIRLENE Mcmahan [facility] Progress Note CM Note CM Note Notes: Therapies evals on hold due to patient agitation. CM will follow. Date Signed: 10/15/2018 02:48 PM Electronically Signed By:Anya Nichols LCSW [facility] Progress Note CM Note CM Note Notes: Pt's birthday is tomorrow. Family meeting held today, per request of family, with pt's daughters Ivett ([phone]) and Alondra ([phone]) as well as CM, Spiritual Care, and Crap Shooter. Ivett was concerned that she lives out of town and wanted to ask questions before heading back to [place]. Support was provided to family. They are understanding of pt's progress but continue to be overwhelmed. Family reports they are appreciative of the care he is getting here, including having a sitter. Family continues to request Podiatry consult. RN and MD are aware. Family had questions about SNFs that are contracted with [place], CM provided list to Alondra after meeting. CM initiated SNF referral through [place]. CM to follow and continue to keep family updated. Plan: SNF Date Signed: 10/18/2018 03:12 PM Electronically Signed By:SHIRLENE Mcmahan [facility] Progress Note CM Note CM Note Notes: 10/21/2018 Case Management Note Multiple phone calls with dolly Root [phone]. Ivett resides in [place] and requests phone calls every day from staff with updates. Ivett notified case management that [facility] will not take pt back unless there is a stay at SNF rehab. [facility] also requiring pt shift insulin administration from vials + syringe to insulin pens. Encouraged Ivett to contact PCP at [place] and arrange for certified adaptive physical educator to instruct pt on new insulin regime. Multiple phone calls with [facility] today. Faxed updates. Informed [facility] of need for SNF per [facility] instructions. [facility] reviewing case. Dorcas [facility] dependency case manager can be reached at [phone]. Case Management d/c poc: to be determined. Case Management to follow. Date Signed: 10/21/2018 01:52 PM Electronically Signed By:Bekah Jones RN [facility] Progress Note CM Note CM Note Notes: 10/22/2018 Case Management Note Multiple discussions with dolly Root today. Ivett has chosen [facility] for SNF rehab. Notified [facility]. Faxed updates. Provided [facility] auth number. [facility] has a bed for pt this weekend. Case Management d/c poc: [facility] SNF rehab when medically ready. Case Management to follow. Date Signed: 10/22/2018 04:11 PM Electronically Signed By:Bekah Jones RN [facility] Progress Note CM Note CM Note Notes: 10/22/2018 Case Management Note Auth denied for [facility] by [place] because it is an overflow facility. [facility] requested pt be placed at [facility]. Discussed with Fiorella from [employer] on the phone. Notified [employer]. Left VM for daughter Ivett. Case Management d/c poc: [facility] Case Management to follow. Date Signed: 10/22/2018 04:59 PM Electronically Signed By:Bekah Jones RN [facility] Progress Note CM Note CM Note Notes: Pt's d/c anticipated on Thursday. Note was sent to [place] via [employer] with an update of his anticipated d/c. D/C Plan: [facility] Date Signed: 10/23/2018 02:01 PM Electronically Signed By:Judi Ramirez [facility] Progress Note CM Note CM Note Notes: 10/25/2018 Case Management Note Discussed pt during rounds today. Diuresis continues. Updated [facility] and [employer] via [employer]. Need new auth number needed by [place] for SNF rehab. Made request to [place]. Case Management d/c poc: [facility] re[facility] pending auth from [place]. Case Management to follow. Date Signed: 10/25/2018 02:12 PM Electronically Signed By:Bekah Jones RN [facility] CM Progress Note CM Note CM Note Notes: Patient will need to be off IV Diuretics for 24 hours before discharge per [place]. This is not negotiable. Spoke with Fiorella from [facility] and they are planning to take the patient as soon as the requirement is fullfilled. CM will follow. Date Signed: 10/26/2018 03:42 PM Electronically Signed By:Anya Nichols LCSW [facility] Progress Note CM Note CM Note Notes: 10/27/2018 Case Management Note Per Sam Alexander pt switched to oral diuretics today. Requested auth from [place] which was denied for SNF rehab. Provided MD pager number for [place] to discuss. Auth contact for [facility] SNF is [phone]. Requested phone number/provider to contact for cardiac monitoring recommended by Sam Alexander. Shelley from [place] wanted to address d/c placement prior to providing info for [place] cardiac team. Pt PCP is Dr. Laisha Allred. Pt may need to d/c straight to PCP office for assessment of need for equipment monitor phototypesetting. Or per Shelley, [place] may send someone to [facility] the monitor [facility] or at SNF rehab if approved after doc to doc call today. Left VM for dolly Root with updates. Case Management d/c poc: to be determined. Case Management to follow. Date Signed: 10/27/2018 05:06 PM Electronically Signed By:Bekah Jones RN [facility] Progress Note CM Note CM Note Notes: 10/28/2018 Case Management Note Pt denied auth by [place] for SNF rehab. Dr. Conde discussed with [place] without success. [facility] instructed case management that [facility] is not legally allowed to decline pt return. [place] recommended that case management place pt in exterminator care as [facility] did not feel pt had skilled rehab needs. Called Dora NINO at [facility] [phone] ext [phone]. Dora agreeable to taking pt back with the addition of home health. [facility] fax number [phone]. All d/c orders need to faxed via [employer]. Faxed referral to [facility] health, a [facility] approved home health. Contacted Lisa arthur for [facility] who is having [facility] fire chief's aide review case prior to acceptance. Contacted [facility] for scheduling of equipment monitor phototypesetting. Eventually transferred to Dr. Allred's office PCP for pt for equipment monitor phototypesetting order. Faxed records to PCP office for review [phone]. Requested PCP office schedule cardiology appointment. [facility] can be reached at [phone]. Dr. Allred can be reached at [phone]. Notified daughter Ivett of changes in dispo plan. Ivett working on family transport for late tomorrow afternoon. Ivett working on family member to stay with pt first few days after discharge at [facility]. Case Management d/c poc: return to [facility] with [facility] pending acceptance. Case Management to follow. Date Signed: 10/28/2018 05:18 PM Electronically Signed By:Bekah Jones RN Case Management Discharge Plan Note Case Management Discharge Discharge Order Complete? Answers: Yes Patient to Obtain Answers: via Family Medications Transportation Arranged Answers: Family/Friends Faxed Final Orders Answers: Yes Notes: to [facility] Agency/Facility Transfer Answers: Yes Notes: [facility] and [facility] Report Printed & Faxed to [facility] Family Notified Answers: Yes Notes: dolly Root and son heavenly [place] Discharge Comments Notes: 10/29/2018 Case Management Note Provided denial letter from [place] to pt. Faxed copy to dolly Root who is going to appeal. Confirmed MD appointments with PCP Dr. Allred on Thursday at 9:30 am and cardiology on Thursday at 3 pm at the [place] [facility]. Faxed final orders to [facility] via [employer] to [phone]. Faxed final orders to [facility] via [employer]. Discussed all of the above with dolly Root. Encouraged Ivett and family members to consider pt exterminator needs and that Assisted Living may not be a high enough level of care. Discussed w/pt as well to consider shifting to [facility] care with . Encouraged pt and family to explore palliative care through [place]. Pt son in [facility] to transport to [facility] [phone]. [place] pharmacy at [facility] clinic is [phone]. Case Management d/c poc: return to [facility] with [facility] home care and family support. Date Signed: 10/29/2018 02:10 PM Electronically Signed By:Bekah Jones RN [facility] Progress Note CM Note CM Note Notes: 10/29/2018 Case Management discharge addendum. Left VM adan Chavez at [facility] alerting to pt needs. Discussed with dolly Root. Requested family member stay with pt round the clock until seen by Dr. Allred on Thursday. RN teaching moreau catheter cares to pt and son in [place]. Provided unskilled provider list to family. Provided [facility] skilled care list. Discussed options in [place]. [facility] is top choice for family. Provided business cards for [employer], outside social work director of casework department and a place for home liason. Confirmed d/c orders in correct for [facility]. RN to visit pt on Thursday. Encouraged family to be in touch with [employer] education coordinator RN and Dr. Allred's office with any concerns. Date Signed: 10/29/2018 05:54 PM Electronically Signed By:Bekah Jones RN Intervention Information Intervention Type:*IM-Signed Date of Service:10/29/2018 02:50 PM Patient Type:Inpatient Staff Member:Joy Duff Hours: Discipline: Severity: Comment:
--- NOTE | 2018-10-29 14:11 | ASMTDCNOTE ---
Case Management Discharge Discharge Order Complete? Answers: Yes Patient to Obtain Answers: via Family Medications Transportation Arranged Answers: Family/Friends Faxed Final Orders Answers: Yes Notes: to [facility] Agency/Facility Transfer Answers: Yes Notes: to [facility] and morning Report Printed & F[facility]ed [facility] Family Notified Answers: Yes Notes: dolly Root and son heavenly Bo[place] Discharge Comments Notes: 10/29/2018 Case Management Note Provided denial letter from [facility] to pt. Faxed copy to daughter Ivett who is going to appeal. Confirmed MD appointments with PCP Dr. Allred on Thursday at 9:30 am and cardiology on Thursday at 3 pm at the [place] [facility]. Faxed final orders to [facility] via [employer] to [phone]. [facility]ax[facility] to [facility] via [employer]. Discussed all of the above with dolly Root. Encouraged Ivett and family members to consider pt fpc needs and that Assisted Living may not be a high enough level of care. Discussed w/pt as well to consider shifting to fpc care with . Encouraged pt and family to explore palliative care through [facility]. Pt son in law [place] Dickersons to transport to [facility] [phone]. [facility] pharmacy at baseline clinic is [phone]. Case Management d/c poc: return to [facility] with [facility] and family support. Date Signed: 10/29/2018 02:10 PM Electronically Signed By:Bekah Jones RN
[2018-10-29 14:45] VITALS: BP 122/63
--- NOTE | 2018-10-29 16:45 | PDHOMEO2F ---
Home Oxygen Face to Face Home Orders: I certify that a physician or a nurse practitioner or physician's assistant principal has had a [id number] encounter with this patient on the date of this order due to the diagnosis listed, which relates to the primary reason the patient requires home oxygen. Alternative treatments have been tried, or considered, and deemed ineffective. It is anticipated that supplemental oxygen will result in improvement with treatment. Home oxygen qualifying diagnosis: chf SpO2 on room air (%): 73 Frequency of home oxygen needed: continuous Home oxygen liters per minute: 2 Home oxygen delivery device: nasal cannula Concentrator: Yes E-tanks for mobility and back up: Yes If ordering portable O2, is the patient mobile in the home?: Yes I certify that, based on these findings, the home oxygen is medically necessary for this patient for the following length of time. Length of time home oxygen needed: 99 years
--- NOTE | 2018-10-29 17:55 | ASMTCMCOM ---
CM Note CM Note Notes: 10/29/2018 Case Management discharge addendum. Left VM for Kathy at [facility] alerting to pt needs. Discussed with daughter Ivett. Requested family member stay with pt round the clock until seen by Dr. Allred on Thursday. RN teaching moreau catheter cares to pt and son in [facility]. Provided unskilled provider list to family. Provided [facility] skilled care list. Discussed options in [place]. [facility] is top choice for family. Provided business cards for [employer], outside social work case management coordinator and a place for home liason. Confirmed d/c orders in correct for [facility]. RN to visit pt on Thursday. Encouraged family to be in touch with [employer] content production specialist RN and Dr. Allred's office with any concerns. Date Signed: 10/29/2018 05:54 PM Electronically Signed By:Bekah Jones RN
== END 2018-10-29 18:24 | disposition home health service (06) | DRG 637 ==
LOC: EDUNIT# → F2N 08:08 → F2W 10-20 21:42
PROVIDERS: ADMIT Family Medicine; ATTEND Family Medicine
PROC: 5A1945Z Respiratory Ventilation, 24-96 Consecutive Hours (ICD-10-PCS; principal; 2018-10-11)
PROC: 0BH17EZ Insertion of Endotracheal Airway into Trachea, Via Natural or Artificial Opening (ICD-10-PCS; principal; 2018-10-11)
PROC: 0T9B70Z Drainage of Bladder with Drainage Device, Via Natural or Artificial Opening (ICD-10-PCS; 2018-10-11)
PROC: 02HV33Z Insertion of Infusion Device into Superior Vena Cava, Percutaneous Approach (ICD-10-PCS; 2018-10-17)
PROC: 5A2204Z Restoration of Cardiac Rhythm, Single (ICD-10-PCS; 2018-10-22)
PROC: B245ZZ4 Ultrasonography of Left Heart, Transesophageal (ICD-10-PCS; 2018-10-22)
DX: E10.10 Type 1 diabetes mellitus with ketoacidosis without coma (principal); J96.00 Acute respiratory failure, unspecified whether with hypoxia or hypercapnia; G93.41 Metabolic encephalopathy; I11.0 Hypertensive heart disease with heart failure; I50.33 Acute on chronic diastolic (congestive) heart failure; N17.9 Acute kidney failure, unspecified; G45.9 Transient cerebral ischemic attack, unspecified; I48.1 Persistent atrial fibrillation; I44.2 Atrioventricular block, complete; E78.5 Hyperlipidemia, unspecified; E87.5 Hyperkalemia; T79.6XXA Traumatic ischemia of muscle, initial encounter; R33.9 Retention of urine, unspecified; F03.90 Unspecified dementia, unspecified severity, without behavioral disturbance, psychotic disturbance, mood disturbance, and anxiety; E10.649 Type 1 diabetes mellitus with hypoglycemia without coma; E86.9 Volume depletion, unspecified; Z79.4 Long term (current) use of insulin
CPT/HCPCS: 80305; 82435-PO; 82565-PO; 82947-PO; 82947-QW; 84132-PO; 84295-PO; 84484-ER; 84520-PO; 85014-ER; 92507-GN; 92523-GN; 92526-GN; 92610-GN; 92611-GN; 96365; 97110-GO; 97110-GP; 97116-GP; 97162-GP; 97166-GO; 97530-GO; 97530-GP; 97535-GO; C1751; G0480; G0515-GO; J0360; J0461; J0610; J1160; J1265; J1650; J1815; J1940; J2060; J2543; J2704; J3370; J3475; J3480; P9047; Q9967